=== PATIENT | male | born 1940 | race Caucasian/White ===

== ENCOUNTER → 2018-03-29 10:20 | Outpatient (BNVA) | payer MEDICARE, OTHER, SELFPAY | PROVIDERS: PCP Internal Medicine; Visit Provider Student in an Organized Health Care Education/Training Program | DX: I50.9 Heart failure, unspecified (principal); I34.0 Nonrheumatic mitral (valve) insufficiency; I25.10 Atherosclerotic heart disease of native coronary artery without angina pectoris; I48.2 Chronic atrial fibrillation; I11.0 Hypertensive heart disease with heart failure; I77.819 Aortic ectasia, unspecified site; F10.10 Alcohol abuse, uncomplicated; F17.210 Nicotine dependence, cigarettes, uncomplicated | CPT/HCPCS: 99215 ==

== ENCOUNTER 2018-07-19 01:24 | Outpatient (CLI) | payer MEDICARE, OTHER, SELFPAY ==
[2018-07-19 11:08] LABS: NT-proBNP 866 pg/mL
== END 2018-07-19 01:44 ==
PROVIDERS: PCP Internal Medicine; Visit Provider Internal Medicine
DX: I50.9 Heart failure, unspecified (principal)
CPT/HCPCS: 36415; 83880

== ENCOUNTER 2018-08-21 01:06 | Outpatient (CLI) | payer MEDICARE, OTHER, SELFPAY ==
--- NOTE | 2018-08-21 10:21 | MERGE_ITS ---
*[facility]* *[facility]* [address] [place] [address] Date of study: 08/21/2018 Transthoracic Echocardiography M-mode, complete 2D, complete spectral Doppler, and color Doppler *STUDY CONCLUSIONS* Summary: 1. Left ventricle: The cavity size was moderately dilated. Systolic function was mildly reduced. The estimated ejection fraction was 45-50%. Diffuse hypokinesis. 2. Aortic valve: There was moderate regurgitation. 3. Mitral valve: There was moderate regurgitation. 4. Left atrium: The atrium was severely dilated. 5. Right ventricle: The cavity size was mildly dilated. Systolic function was mildly reduced. 6. Right atrium: The atrium was moderately to severely dilated. 7. Atrial septum: No defect or patent foramen ovale was identified. 8. Tricuspid valve: There was moderate regurgitation. 9. Inferior vena cava: The vessel was patent and normal in size. The respirophasic diameter changes were in the normal range (greater than or equal to 50%), consistent with normal central venous pressure. *PATIENT PRESENTATION* Height: 188cm ((74in) ) S/D Pressure: 144 / 83 Weight: 113.9kg ((250.5lb) ) BSA: 2.47m^2 Test start time: 10:25 AM. Test stop time: 11:20 AM. PERFORMING Unknown ORDERING Maximino Virk REFERRING Maximino Virk PERFORMING [facility] CONSULTING Florencia Tolentino PAINT SUPERVISOR RT Marysol (R)(CT), KARON *PROCEDURE DATA* Procedure information: The patient was identified by two identifiers. This study was interpreted by [facility]. Pertinent images and digital data are archived for permanent storage and are available for subsequent review. Comparison was made to the study of 07/27/2017. Study status: Routine. Transthoracic echocardiography. M-mode, complete 2D, complete spectral Doppler, and color Doppler. A Transthoracic Echocardiogram was performed. Scanning was performed from the parasternal, apical, subcostal, and suprasternal notch acoustic windows. Images were obtained using an [id number] cardiac ultrasound machine. Image quality was adequate. Study completion: The patient tolerated the procedure well. History: PMH: Aortic insufficiency i35.1 AFIB, CAF, CHG, TAA. *CARDIAC ANATOMY* Left ventricle: The cavity size was moderately dilated. Systolic function was mildly reduced. The estimated ejection fraction was 45-50%. Diffuse hypokinesis. The study was not technically sufficient to allow evaluation of LV diastolic dysfunction due to atrial fibrillation. There was no evidence of elevated ventricular filling pressure by Doppler parameters. Aortic valve: Trileaflet. Doppler: There was no stenosis. There was moderate regurgitation. VTI ratio of LVOT to aortic valve: 0.8. Valve area (VTI): 3cm^2. Indexed valve area (VTI): 1.2cm^2/m^2. Peak velocity ratio of LVOT to aortic valve: 0.61. Valve area (Vmax): 2.3cm^2. Indexed valve area (Vmax): 0.9cm^2/m^2. Mean velocity ratio of LVOT to aortic valve: 0.67. Valve area (Vmean): 2.5cm^2. Indexed valve area (Vmean): 1cm^2/m^2. Mean gradient (S): 3.2mm Hg. Peak gradient (S): 5.3mm Hg. Aorta: Aortic root: The aortic root was mildly dilated. Ascending aorta: The ascending aorta was moderately dilated. Mitral valve: Doppler: There was no evidence for stenosis. There was moderate regurgitation. Left atrium: The atrium was severely dilated. Atrial septum: No defect or patent foramen ovale was identified. Right ventricle: The cavity size was mildly dilated. Systolic function was mildly reduced. Pulmonic valve: Doppler: There was no evidence for stenosis. There was no significant regurgitation. Peak gradient (S): 1.3mm Hg. Tricuspid valve: Doppler: There was moderate regurgitation. Pulmonary artery: Poorly visualized. Pulmonary systolic pressure was in the range of 25mm Hg to 35mm Hg. Right atrium: The atrium was moderately to severely dilated. Pericardium: There was no pericardial effusion. Systemic veins: Inferior vena cava: Well visualized. The vessel was patent and normal in size. The respirophasic diameter changes were in the normal range (greater than or equal to 50%), consistent with normal central venous pressure. Baseline ECG: Atrial fibrillation. Measurements Left ventricle Value 07/27/2017 Reference LV ID, ED, PLAX (H) 6.5 cm 5.8 3.5 - 6.0 LV ID, ES, PLAX (H) 4.9 cm 4.7 2.1 - 4.0 LV PW thickness, ED, PLAX 1.1 cm 1.2 LV end-diastolic volume, 142 ml 154 1-p A2C LV ejection fraction, 1-p 48 % 40 A2C LV end-diastolic volume, 158 ml 122 1-p A4C LV ejection fraction, 1-p 51 % 47 A4C LV e', lateral 0.084 m/sec LV E/e', lateral 8 LV e', medial 0.076 m/sec LV E/e', medial 9 LV e', average 0.08 m/sec LV E/e', average 8 Ventricular septum Value 07/27/2017 Reference IVS thickness, ED, PLAX 1.0 cm 1.2 LVOT Value 07/27/2017 Reference LVOT ID, A-P 2.2 cm 2.1 LVOT area 3.7 cm^2 3.5 LVOT peak velocity, S 0.7 m/sec 0.88 LVOT mean velocity, S 0.57 m/sec LVOT VTI, S 18.5 cm 14.9 LVOT peak gradient, S 2 mm Hg LVOT mean gradient, S 1.4 mm Hg 1.7 Stroke volume (SV), LVOT 68 ml DP Stroke index (SV/bsa), 28 ml/m^2 LVOT DP Aortic valve Value 07/27/2017 Reference Aortic valve peak 1.2 m/sec 1.2 velocity, S Aortic valve mean 0.85 m/sec 0.01 velocity, S Aortic valve VTI, S 23.0 cm Aortic mean gradient, S 3.2 mm Hg 3.2 Aortic peak gradient, S 5.3 mm Hg 5.9 VTI ratio, LVOT/AV 0.8 Aortic valve area, VTI 3 cm^2 2.7 Velocity ratio, peak, 0.61 0.73 LVOT/AV Aortic valve area, peak 2.3 cm^2 2.5 velocity Velocity ratio, mean, 0.67 LVOT/AV Aortic valve area, mean 2.5 cm^2 velocity Aortic valve area/bsa, 1 cm^2/m^2 mean velocity Aortic regurg deceleration 309 cm/s^2 148 Aortic regurg pressure 555 ms 797 half-time Aorta Value 07/27/2017 Reference Aortic root ID, ED 4.1 cm 4.5 Ascending aorta ID, A-P, S 4.2 cm 4.2 Left atrium Value 07/27/2017 Reference LA ID, A-P, ES 4.0 cm LA ID/bsa, A-P 1.6 cm/m^2 <=2.2 LA area, ES, A4C (H) 35.3 cm^2 32 8.8 - 23.4 LA area, ES, A2C 32 cm^2 LA volume/bsa, ES, 1-p A4C 60 ml/m^2 LA volume, ES, 2-p 120 ml LA volume/bsa, ES, 2-p 49 ml/m^2 LA/aortic root ratio 0.96 0.86 Mitral valve Value 07/27/2017 Reference Mitral E-wave peak 0.66 m/sec 0.54 velocity Pulmonary veins Value 07/27/2017 Reference Pulmonary vein peak 0.16 m/sec velocity, S Pulmonary vein peak 0.66 m/sec velocity, D Pulmonary vein velocity 0.24 ratio, peak, S/D Tricuspid valve Value 07/27/2017 Reference Tricuspid regurg peak 2.5 m/sec 2.2 velocity Tricuspid peak RV-RA 24.9 mm Hg 19.4 gradient Right atrium Value 07/27/2017 Reference RA area, ES, A4C (H) 25.5 cm^2 29 8.3 - 19.5 Pulmonic valve Value 07/27/2017 Reference Pulmonic peak gradient, S 1.3 mm Hg 1.7 Legend: (L) and (H) ran values outside specified reference range. I have personally reviewed the images and have reviewed and edited the reported findings. Electronically signed by Lul Colbert MD 08/21/2018 15:48
== END 2018-08-21 01:26 ==
PROVIDERS: PCP Internal Medicine; Visit Provider Student in an Organized Health Care Education/Training Program
DX: I35.1 Nonrheumatic aortic (valve) insufficiency (principal); I48.91 Unspecified atrial fibrillation; I50.1 Left ventricular failure, unspecified; I51.7 Cardiomegaly; I25.10 Atherosclerotic heart disease of native coronary artery without angina pectoris
CPT/HCPCS: 93306

== ENCOUNTER → 2018-09-06 08:55 | Outpatient (BNVA) | payer MEDICARE, OTHER, SELFPAY | PROVIDERS: PCP Internal Medicine; Visit Provider Student in an Organized Health Care Education/Training Program | DX: I50.9 Heart failure, unspecified (principal); I34.0 Nonrheumatic mitral (valve) insufficiency; I25.10 Atherosclerotic heart disease of native coronary artery without angina pectoris; I48.2 Chronic atrial fibrillation; I11.0 Hypertensive heart disease with heart failure; I77.810 Thoracic aortic ectasia; F17.210 Nicotine dependence, cigarettes, uncomplicated | CPT/HCPCS: 99215 ==

== ENCOUNTER 2018-09-20 02:01 | Outpatient (CLI) | payer MEDICARE, OTHER, SELFPAY ==
[2018-09-20 11:04] LABS: Abs Immature Grans 0.01 k/cumm (0.0-0.09); Absolute Basophil Count 0.03 k/cumm (0.0-0.2); Absolute Eosinophil Count 0.26 k/cumm (0.0-0.7); Absolute Lymphocyte Count 2.11 k/cumm (1.2-3.4); Absolute Monocyte Count 0.74 k/cumm (0.11-0.7); Absolute Neutrophil Count 2.58 k/cumm (1.2-6.7); Basophils % 0.5; Eosinophils % 4.5; HCT 45.4 % (40.0-50.0); HGB 15.6 g/dL (13.5-17.5); Immature Grans % 0.2; Lymphocytes % 36.8; Mean Corp. HGB Concentration 34.4 g/dL (32.0-36.0); Mean Corpuscular Hemoglobin 30.7 pg (27.0-33.0); Mean Corpuscular Volume 89.4 fL (80-95); Mean Platelet Volume 10.2 fL (8.0-11.0); Monocytes % 12.9; Neutrophils % 45.1; Platelet Count 151 x1000/uL (130-400); RBC 5.08 m/cumm (4.50-6.00); RBC Distribution Width 13.7 % (11.8-14.1); White Blood Cell Count 5.73 k/cumm (4.4-10.8)
[2018-09-20 11:37] LABS: ALT 27 U/L (12-78); AST 18 U/L (15-37); Albumin 3.6 g/dL (3.4-5.0); Alkaline Phosphatase 60 U/L (46-116); Bilirubin, Direct 0.19 mg/dL (0.00-0.20); Bilirubin, Total 0.7 mg/dL (0.2-1.0); Magnesium 1.6 mg/dL (1.8-2.4); Total Protein 6.5 g/dL (6.4-8.2)
[2018-09-20 14:01] LABS: Cholesterol 143 mg/dL (50-200); HDL Cholesterol 46 mg/dL (40-60); LDL CHOLESTEROL 68 mg/dL (<100); Triglyceride 176 mg/dL (30-150)
== END 2018-09-20 02:21 ==
PROVIDERS: PCP Internal Medicine; Visit Provider Student in an Organized Health Care Education/Training Program
DX: I25.10 Atherosclerotic heart disease of native coronary artery without angina pectoris (principal); I50.9 Heart failure, unspecified; I48.91 Unspecified atrial fibrillation
CPT/HCPCS: 36415; 80061; 80076; 83721; 83735; 85025

== ENCOUNTER 2019-04-10 01:02 | Outpatient (CLI) | payer MEDICARE, OTHER, SELFPAY ==
[2019-04-10 13:13] LABS: ALT 33 U/L (16-63); AST 18 U/L (15-37); Albumin 3.8 g/dL (3.4-5.0); Alkaline Phosphatase 62 U/L (46-116); Anion Gap 9.8 mmol/L (3-11); BUN 17 mg/dL (7-18); Bilirubin, Total 0.9 mg/dL (0.2-1.0); CO2 26.2 mmol/L (21.0-32.0); CREATININE 0.97 mg/dL (0.70-1.30); Calcium 8.6 mg/dL (8.5-10.1); Chloride 105 mmol/L (98-107); Glucose 92 mg/dL (70-100); Magnesium 1.6 mg/dL (1.8-2.4); NT-proBNP 1057 pg/mL; Potassium 4.4 mmol/L (3.5-5.1); Sodium 141 mmol/L (136-145); Total Protein 6.8 g/dL (6.4-8.2)
== END 2019-04-10 01:22 ==
PROVIDERS: PCP Internal Medicine; Visit Provider Internal Medicine
DX: I25.10 Atherosclerotic heart disease of native coronary artery without angina pectoris (principal); I50.9 Heart failure, unspecified; E83.42 Hypomagnesemia
CPT/HCPCS: 36415; 80053; 83735; 83880

== ENCOUNTER 2019-07-02 16:52 | Outpatient (CLI) | payer MEDICARE, OTHER, SELFPAY ==
[2019-07-02 16:39] LABS: ALT 23 U/L (16-63); AST 18 U/L (15-37); Albumin 3.4 g/dL (3.4-5.0); Alkaline Phosphatase 68 U/L (46-116); Anion Gap 9.1 mmol/L (3-11); BUN 16 mg/dL (7-18); Bilirubin, Total 0.4 mg/dL (0.2-1.0); CO2 26.9 mmol/L (21.0-32.0); CREATININE 1.14 mg/dL (0.70-1.30); Calcium 7.9 mg/dL (8.5-10.1); Chloride 106 mmol/L (98-107); Glucose 112 mg/dL (74-106); Potassium 4.1 mmol/L (3.5-5.1); Sodium 142 mmol/L (136-145); Total Protein 6.6 g/dL (6.4-8.2)
--- NOTE | 2019-07-02 17:06 | DI.CT_ITS ---
EXAM: CT THORAX ABD/PEL CTA CLINICAL HISTORY: CHEST PAIN, BACK PAIN, R07.9, M54.9,.DORSALGIA TECHNIQUE: Imaging Protocol: Axial computed tomography images of the with coronal and sagittal refo rmatted images were created and reviewed. Axial CT angiography was performed with multi-slice acquisition and multi-planar and/or 3D reconstruc tions. CONTRAST MATERIAL: Intravenous: Omnipaque 350 Contrast volume:125 mL contrast route:IV - Oral: No COMPARISON: No exams were available for comparison FINDINGS: CHEST: Tracheobronchial tree: Patent where visualized. Mediastinum and Chel[place]: No dominant adenopathy or fluid collection. Pulmonary parenchyma: Dependent atelectasis. Pleura: No effusion or pneumothorax. Aorta: Atherosclerosis. No evidence of aortic dissection. 4.2 cm ascending thoracic aortic aneurysm . Heart: Cardiomegaly. Moderately severe coronary artery calcification. No pericardial effusion. Pulmonary arteries: No central pulmonary emboli. Bones: No acute abnormality. Degenerative changes. Old healed rib fracture. Lymph nodes: Within normal limits. ABDOMEN: Liver: Normal density. No measurable mass. Gallbladder and biliary tract: Status post cholecystectomy. No biliary ductal dilatation. Pancreas: Normal density, no abnormal calcifications or inflammatory process. Spleen: Normal. Kidneys: Normal size, contour and axis. No radiodense stones or obstructive uropathy. No masses seen. Adrenal glands: No masses seen. Lymph nodes: Within normal limits. Aorta: There is an infrarenal abdominal aortic aneurysm measuring 3 cm in diameter. There is atheros clerosis of the abdominal aorta. There are 2 small intimal flaps identified in the infrarenal abdomi nal aortic aneurysm. They are not associated with either the renal arteries or the iliac arteries. (Series 6, images 880 and 923). There is no evidence of aortic rupture. There is no evidence of a p enetrating atherosclerotic ulcer. Celiac trunk and mesenteric arteries: No occlusion or significant stenosis. Iliac arteries: Atherosclerosis. No evidence of occlusion or significant stenosis. Renal arteries: No evidence of occlusion or significant stenosis. PELVIS: Bladder: Grossly unremarkable. There is limited visualization due to artifact from the patient's sabino ateral total hip replacements. Bowel: Colonic diverticulosis but no evidence of acute diverticulitis. Normal appendix. Large amoun t of stool in the colon suggesting constipation. Apparent thickening of the wall of the stomach licea artis this likely is due to underdistention. No evidence of bowel obstruction. Peritoneal cavity: No ascites, collection or mesenteric inflammatory response. Reproductive organs: Not well visualized due to the artifact from the patient's bilateral hip prosthe ses. Bones: Degenerative changes. Bilateral hip arthroplasty. IMPRESSION: 1. No evidence of thoracic aortic dissection. 2. 4.2 centimeter ascending thoracic aortic aneurysm. 3. 2 small intimal flaps seen in the infrarenal abdominal aorta. No involvement of the renal arterie s or iliac arteries is noted. These may represent focal tiny dissections versus intimal injury. No evidence of aortic rupture is noted. DATA REPOSITORY: All CT scans at this facility are submitted to the National Radiology Data Registry (NRDR) Dose Index Registry (DIR) with the [employer] (A[employer]). RADIATION OPTIMIZATION: All CT scans at this facility use at least one of these dose optimization te chniques: automated exposure control; mA and/or kV adjustment per patient size (includes targeted exa ms where dose is matched to clinical indication); or iterative reconstruction.
--- NOTE | 2019-07-02 17:48 | DI.VRAD_ITS ---
PROCEDURE INFORMATION: Exam: CT Angiography Chest With Contrast Exam date and time: 07/02/2019 3:30 PM Age: 79 years old Clinical indication: Chest pain and other: Back pain; Type not specified; Other: Chest/back; Prior surgery; Patient HX: Chest pain, back pain; Additional info: Evaluate for aortic dissection TECHNIQUE: Imaging protocol: Computed tomographic angiography of the chest with intravenous contrast. 3D rendering: MIP and/or 3D reconstructed images were created by the technologist. COMPARISON: CR CHEST 2 VIEWS PA,LAT 01/28/2015 11:21 AM FINDINGS: Pulmonary arteries: Normal. No pulmonary emboli. Great vessels off aortic arch: Bovine configuration to the aortic arch vessels. Aorta: Aneurysmal dilation of the mid ascending thoracic aorta measuring 4.2 cm in greatest diameter. Mild diffuse calcific atherosclerotic disease of the aorta is present. No acute aortic pathology. Specifically, no evidence of aortic dissection. Lungs: There is subpleural atelectasis of the dependent portions of the lungs. Mild scarring and atelectasis at the lung bases. No acute interstitial or airspace disease. Pleural space: Unremarkable. No pneumothorax. No pleural effusion. Heart: The heart is moderately enlarged. There is moderate atherosclerotic calcification of the coronary arteries. No pericardial thickening or effusion. Lymph nodes: Unremarkable. No enlarged lymph nodes. Bones/joints: Moderate to severe degenerative changes at the bilateral glenohumeral joints. Old/healed fracture to the lateral aspect of the left 7th rib. No acute skeletal pathology. Severe multilevel degenerative changes of the spine, as manifested by multilevel anterior osteophytes and multilevel decrease in intervertebral disc space. Soft tissues: Unremarkable. IMPRESSION: 1. Negative for acute thoracic pathology. 2. Incidental findings as detailed above. PROCEDURE INFORMATION: Exam: CT Angiography Abdomen and Pelvis With Contrast Exam date and time: 07/02/2019 3:30 PM Age: 79 years old Clinical indication: Chest pain and other: Back pain; Type not specified; Other: Chest/back; Prior surgery; Patient HX: Chest pain, back pain; Additional info: Evaluate for aortic dissection TECHNIQUE: Imaging protocol: Computed tomographic angiography of the abdomen and pelvis with intravenous contrast material. 3D rendering: MIP and/or 3D reconstructed images were created by the technologist. COMPARISON: CR CHEST 2 VIEWS PA,LAT 01/28/2015 11:21 AM FINDINGS: Limitations: Evaluation of the pelvis is limited due to significant streak artifact. Aorta: There is aneurysmal dilation of the infrarenal abdominal aorta measuring up to 3 cm in greatest diameter. There is severe atherosclerotic disease of the abdominal aorta present. At least 2 small intimal flaps are appreciated in the infrarenal abdominal aorta on images 880 and 923 series 6. These are most likely related to tiny focal dissections versus intimal injury due to underlying atherosclerotic plaque ulceration. They are of questionable clinical significance at this time and are not associated to the takeoffs of the renal arteries or ALEXANDRO. The flaps do not extend into the iliac arteries either. There are scattered ulcerated atherosclerotic plaques seen throughout the infrarenal abdominal aorta. For example, a focal plaque ulceration is appreciated on image 805 series 6. There is no evidence of a penetrating atherosclerotic ulcer, nor is there evidence of aortic rupture. Celiac trunk and mesenteric arteries: The celiac artery is patent. The SMA is patent. The ALEXANDRO is patent. Renal arteries: The bilateral single renal arteries are patent. Right iliac arteries: No occlusion or significant stenosis. Left iliac arteries: Diffuse calcific atherosclerotic disease without significant occlusion or stenosis. Liver: There is moderate enlargement of the liver. No acute liver pathology. Gallbladder and bile ducts: Patient status post cholecystectomy. No biliary ductal dilation. Pancreas: Unremarkable. No mass. No ductal dilation. Spleen: Unremarkable. No splenomegaly. Adrenals: Unremarkable. No mass. Kidneys and ureters: Unremarkable. No solid mass. No hydronephrosis. Stomach and bowel: No bowel wall thickening, obstruction, or other acute pathology. Diffuse colonic diverticulosis is present. There is moderately excessive colonic stool content. Appendix: No evidence of appendicitis. Intraperitoneal space: Unremarkable. No free air. No significant fluid collection. Lymph nodes: Unremarkable. No enlarged lymph nodes. Bladder: Visualized urinary bladder appears unremarkable. Reproductive: Prostate gland is not confidently appreciated in this examination. Bones/joints: Complete bilateral hip arthroplasty without acute complications. No evidence of hardware complications. No acute skeletal pathology. Severe multilevel degenerative changes of the spine, as manifested by multilevel anterior osteophytes and multilevel decrease in intervertebral disc space. Soft tissues: Prior anterior abdominal wall repair with mesh placement. No acute complications. IMPRESSION: 1. At least 2 small intimal flaps are appreciated in the infrarenal abdominal aorta which are most likely related to tiny focal dissections versus intimal injury due to underlying atherosclerotic plaque ulceration. They are of questionable clinical significance at this time and are not associated to the takeoffs of the renal arteries or ALEXNADRO. The flaps do not extend into the iliac arteries either. 2. Scattered multifocal areas of atherosclerotic plaque ulceration throughout the infrarenal abdominal aorta without evidence of penetrating atherosclerotic ulcer or aortic rupture. 3. No other acute abdominopelvic pathology is otherwise appreciated. 4. Incidental findings as above. Dictated and Authenticated by: Damián Varma MD. Ordering:GODWIN Don MD
[2019-07-05 06:52] LABS: Vitamin D 25 Total 32.7 ng/ml (30-100)
== END 2019-07-02 17:12 ==
PROVIDERS: PCP Internal Medicine; Visit Provider Internal Medicine
DX: R07.9 Chest pain, unspecified (principal); M54.9 Dorsalgia, unspecified; J98.11 Atelectasis; I71.2 Thoracic aortic aneurysm, without rupture; I51.7 Cardiomegaly; K59.00 Constipation, unspecified; Z90.49 Acquired absence of other specified parts of digestive tract; Z96.643 Presence of artificial hip joint, bilateral
CPT/HCPCS: 36415; 71275; 74177; 80053; 82306

== ENCOUNTER 2019-07-12 07:35 | Outpatient (CLI) | payer MEDICARE, OTHER, SELFPAY ==
--- NOTE | 2019-07-12 13:30 | DI.RAD_ITS ---
EXAM: XR THORACIC SPINE COMPLETE INDICATION: BACK PAIN M54.9 DORSALGIA X 2 WEEKS SUDDEN ONSET, WOKE UP WITH C7-T1 PAIN. COMPARISON: No exams were available for comparison TECHNIQUE: 2D digital imaging was performed. FINDINGS: There is normal alignment of the thoracic spine. Disc heights are well maintained. Flowing osteophy benjamín are seen throughout the thoracic spine. 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 No acute fracture s or subluxations are seen in the spine. The paraspinal lines are unremarkable. IMPRESSION: No acute abnormality.
== END 2019-07-12 07:55 ==
PROVIDERS: PCP Internal Medicine; Visit Provider Internal Medicine
DX: M54.6 Pain in thoracic spine (principal); M54.2 Cervicalgia; M48.13 Ankylosing hyperostosis [Forestier], cervicothoracic region
CPT/HCPCS: 72072

== ENCOUNTER 2019-07-26 09:32 | Outpatient (CLI) | payer MEDICARE, OTHER, SELFPAY | END 2019-07-26 09:52 | PROVIDERS: PCP Internal Medicine; Visit Provider Internal Medicine Cardiovascular Disease | DX: I25.10 Atherosclerotic heart disease of native coronary artery without angina pectoris (principal); I48.20 Chronic atrial fibrillation, unspecified; I10 Essential (primary) hypertension | CPT/HCPCS: 99214; 93005; 93010 ==

== ENCOUNTER 2019-08-14 01:32 | Outpatient (CLI) | payer MEDICARE, OTHER, SELFPAY ==
--- NOTE | 2019-08-14 07:00 | DI.NM_ITS ---
APPROVED REPORT Exam: Pharmacologic Patient Location: Out-Patient Room/Bed: Stress Nurse: Corinna Rasmussen RN BMI: 32.09 Baseline Rhythm: Atrial Fibrillation Indications: Chest pain. Atherosclerosis of [place] coronary artery. Medical History Medical History: Atrial Fibrillation, CAD s/p stent, Heart failure, HTN, Hyperlipidemia, RBBB, Smokin g Cardiac Medications: Aspirin. Apixaban. Losartan. Metoprolol Succinate., Allergies: Ibuprofen Cardiac Risk Factors: HTN, Hyperlipidemia, FHX of CAD, Smoking Previous Cardiac Procedures: PCI Exercise History: Indeterminate Lung Sounds: Clear to auscultation Heart Sounds: Distant heart sounds. Stress Test Details Test: Pharmacologic stress testing performed using 0.4 mg of regadenoson per 5 mL given IV over 10 s econds. Nuclear Acquisition: Rest Tc-99m/Stress Tc-99m 1 day Rest Isotope: Tc-99m Sestamibi. Dose: 12.5 Date: 08/14/2019 Injection Time: 1045 Stress Isotope: Tc-99m Sestamibi. Dose: 34.0 Date: 08/14/2019 Injection Time: 1200 HR Resting HR Supine: 74 bpm Max Heart Rate (APMHR): 141 bpm Target HR (85% APMHR): 119 bpm Max HR Achieved: 89 bpm % of APMHR: 63 Recovery HR: 70 bpm BP Resting BP Supine: 130/80 mmHg Max BP: 140/90 mmHg Recovery BP: 140/80 mmHg ECG Resting ECG: Atrial Fibrillation, RBBB Stress ECG: Atrial Fibrillation, RBBB Arrhythmia: VPC's Recovery ECG: Atrial Fibrillation, RBBB Recovery Arrhythmia: VPC Clinical Exercise duration: 6 min26 sec Stress ECG Conclusion 1. This is a pharmacological stress test. 2. The ECG portion of this exam is nondiagnostic. Protocol Used: Regadenoson Stress Test Summary STAGE HR BP Symptoms NOTES Supine 74 130/80 1 min post Lexiscan injection 89 120/85 3 min post Lexiscan injection 76 140/90 6 min post Lexiscan injection 70 140/80 MPI Conclusion Ejection fraction with stress was 31%. There were no wall motion abnormalities. There is a small fixed apical perfusion defect with no accompanying airam-infarct ischemia. Represents an abnormal SPECT stress test. Radiologist Interpretation Radiologist Interpretation by: Leroy Yañez MD Interpretation Date/Time: 08/14/2019 15:49:10
[2019-08-14] MEDS: Regadenoson 0.4 MG/5 ML SYR IVP (12:03)
== END 2019-08-14 01:52 ==
PROVIDERS: PCP Internal Medicine; Visit Provider Internal Medicine Cardiovascular Disease
DX: I25.10 Atherosclerotic heart disease of native coronary artery without angina pectoris (principal); R07.89 Other chest pain; I48.91 Unspecified atrial fibrillation; I50.9 Heart failure, unspecified; Z95.5 Presence of coronary angioplasty implant and graft; I10 Essential (primary) hypertension; E78.5 Hyperlipidemia, unspecified; Z82.49 Family history of ischemic heart disease and other diseases of the circulatory system
CPT/HCPCS: 78452; 93016; 93018; 93017; J2785

== ENCOUNTER 2019-10-16 09:47 | Emergency (ER) | payer MEDICARE, OTHER, SELFPAY ==
[2019-10-16 09:50] VITALS: BP 172/94; PULSE 95; RESP 20; TEMP 36.7; O2SAT 96
--- NOTE | 2019-10-16 09:55 | ED.GENADUL_ITS ---
Discharge Plan Disposition Patient Disposition: HOME Condition: Stable Discharge Details Chief Complaint: Chest/Rib Clinical Impression: Left rib fracture, Fall Primary Care Provider: Dana Banks ED Provider: Anjana Moore Home Meds and New Rx's Prescriptions: Continued magnesium oxide 400 mg (241.3 mg magnesium) tablet 400 mg PO BID RF: 0 Eliquis 5 mg tablet 5 mg PO BID Qty: 180 RF: 4 atorvastatin [Lipitor] 40 mg tablet 40 mg PO QPM Qty: 90 RF: 4 furosemide 40 mg tablet 40 mg PO DAILY Qty: 60 RF: 6 losartan 50 mg tablet 50 mg PO DAILY Qty: 90 RF: 3 metoprolol succinate 50 mg tablet extended release 24 hr 50 mg PO BID Qty: 180 RF: 3 sildenafil [Viagra] 50 mg tablet 50 mg PO PRN Qty: 6 RF: 5 vitamin S38-siuhr acid 1 EACH tablet 1 ea PO DAILY RF: 0 Co Q-10 (with Vit E) 1 EACH capsule 1 ea PO DAILY RF: 0 nitroglycerin [Nitrostat] 0.4 MG tablet, sublingual 0.4 mg Sublingual Q5 MIN PRN X3 PRNQty: 60 RF: 0 aspirin 81 MG tablet,chewable 81 mg PO DAILY Qty: 30 RF: 0 cholecalciferol (vitamin D3) 1,000 UNIT capsule 1,000 unit PO DAILY RF: 0 spironolactone 25 mg tablet 12.5 mg PO DAILY Qty: 45 RF: 3 omeprazole 40 mg capsule,delayed release(DR/EC) 40 mg PO DAILY Qty: 90 RF: 4 Discharge Instructions Instructions: How to Use an Incentive Spirometer (ED), Rib Fracture (ED), Fall Prevention for Older Adults (ED) Additional Instructions: Please take acetaminophen (tylenol) - 650mg every 6 hours by mouth as needed for pain. Please use lidocaine patch for pain --these are [id number]. Dose according to label. Use incentive spirometer every 2-3 hours while awake for the next week. Please contact your primary care physician to arrange follow-up. Return to the ER for any worsening or new concerning symptoms. Referrals: Dana Banks, [facility] [Primary Care Provider] - Discharge Data Discharge Date/Time-TO BE ENTERED AT DEPARTURE: 10/16/19 11:00 Medical Decision Making <Anjana Moore - Last Filed: 10/16/19 11:03> 79-year-old male presents to the ED with a chief complaint of left-sided rib pain. Patient states he tripped and fell on Tuesday onto his left side. He denies any loss of consciousness or hitting his head. He rates his pain moderate to severe. Denies shortness of breath. He has a history of coronary artery disease, hypertension, vertigo, high cholesterol. He states he took a T ylenol prior to arrival. 0958: X-ray rib series and chest ordered. Offered pain medication which patient declined at this time. Discussed potential complications with patient and red flags and strict return instructions, verbalized understanding. Patient was given incentive spirometer by staff toxicologist and lidocaine patch placed which seems to improve pain somewhat. Patient verbalized understanding. Patient at this time is stable to be discharged home. <Santiago Mohan MD - Last Filed: 10/19/19 08:21> Patient seen, examined, and discussed with AIDA Moore. I agree with treatment plan as discussed/documented. Patient provided lidocaine patch. X-ray results were reviewed and radiology interpretation notes 2, possibly 3 left rib fractures, no pneumothorax. Results were reviewed with the patient. Patient was instructed to continue Tylenol and lidocaine patch. He was provided fall prevention instructions from [facility] program. HPI <Anjana Moore - Last Filed: 10/16/19 11:03> General Mode of arrival: ambulatory . Date/Time Provider Initiated Documentation: 10/16/19 09:48 . Limitations to Documentation: no limitations . Information obtained by: patient . HPI Narrative: 79-year-old male presents to the ED with a chief complaint of left-sided rib pain. Patient states he tripped and fell on Tuesday onto his left side. He denies any loss of consciousness or hitting his head. He rates his pain moderate to severe. Denies shortness of breath. He has a history of coronary artery disease, hypertension, vertigo, high cholesterol. He states he took a Tylenol prior to arrival. Related Data Home Medications Medication Instructions Recorded Confirmed vitamin R57-gysks acid 1 ea PO DAILY 08/23/12 10/19/19 Co Q-10 (with Vit E) 1 ea PO DAILY 11/06/12 10/19/19 nitroglycerin [Nitrostat] 0.4 mg SUBLINGUAL Q5 MIN PRN X3 08/18/16 10/19/19 PRN #60 tab aspirin 81 mg PO DAILY #30 tab-cap 08/03/17 10/19/19 cholecalciferol (vitamin D3) 1,000 unit PO DAILY 10/05/17 10/19/19 spironolactone 25 mg tablet 12.5 mg PO DAILY #45 tab-cap 12/26/18 10/19/19 omeprazole 40 mg capsule,delayed 40 mg PO DAILY #90 tab-cap 02/26/19 10/19/19 release apixaban 5 mg tablet 5 mg PO BID #180 tab-cap 04/04/19 10/19/19 atorvastatin 40 mg tablet 40 mg PO QPM #90 cap 04/04/19 10/19/19 furosemide 40 mg tablet 40 mg PO DAILY #60 tab 04/04/19 10/19/19 losartan 50 mg tablet 50 mg PO DAILY #90 tab-cap 04/04/19 10/19/19 magnesium oxide 400 mg (241.3 mg 400 mg PO BID tab 04/04/19 10/19/19 magnesium) tablet metoprolol succinate 50 mg 50 mg PO BID #180 tab 04/04/19 10/19/19 tablet,extended release 24 hr sildenafil 50 mg tablet 50 mg PO PRN #6 tab-cap 04/04/19 10/19/19 Previous Rx's Medication Instructions Recorded aspirin 81 mg PO DAILY #30 tab-cap 08/03/17 spironolactone 25 mg tablet 12.5 mg PO DAILY #45 tab-cap 12/26/18 omeprazole 40 mg capsule,delayed 40 mg PO DAILY #90 tab-cap 02/26/19 release apixaban 5 mg tablet 5 mg PO BID #180 tab-cap 04/04/19 atorvastatin 40 mg tablet 40 mg PO QPM #90 cap 04/04/19 furosemide 40 mg tablet 40 mg PO DAILY #60 tab 04/04/19 losartan 50 mg tablet 50 mg PO DAILY #90 tab-cap 04/04/19 metoprolol succinate 50 mg 50 mg PO BID #180 tab 04/04/19 tablet,extended release 24 hr sildenafil 50 mg tablet 50 mg PO PRN #6 tab-cap 04/04/19 Allergies Allergy/AdvReac Type Severity Reaction Status Date / Time ibuprofen [From Advil] Allergy Severe RESPIRATORY Unverified 10/19/19 06:28 DISTRESS General Stated Complaint: Chest/Rib CASTRO: 3 Review of Systems <Anjana Moore - Last Filed: 10/16/19 11:03> Narrative: Constitutional: Negative for weight loss, alert and oriented, well groomed, normal body habitus, appears comfortable. HEENT: Denies trauma, headaches, blurry vision, nasal discharge, sore throat, trouble swallowing. Chest: Denies chest pain, palpitations, irregular rhythm, hypertension. Left- sided anterior and posterior chest wall pain. Respiratory: Denies Shortness of breath, cough, hemoptysis. GI: Denies abdominal pain, nausea, vomiting, diarrhea, constipation.. Neuro: Denies dizziness, blurry vision, weakness, syncope, headache or facial numbness. Hematologic: Denies easy bruising, intolerance to heat or cold, hair loss. PFSH <Anjana Moore - Last Filed: 10/16/19 11:03> Medical History Benign paroxysmal positional vertigo (Inactive 01/10/18) CAD (coronary artery disease) Carpal tunnel syndrome (Inactive) Cataract (Inactive) Essential hypertension Heart disease History of alcoholism (Inactive) Hypercholesterolemia Status post percutaneous transluminal coronary angioplasty (~2008) stent placement Surgical History Colonoscopy - IV Sedation (09/06/12) DR. MOORE; POOR PREP, TUBULAR ADENOMA Colonoscopy - MAC (01/20/18) EGD - MAC (03/21/15) DR.TERRY HERNANDEZ History of esophagogastroduodenoscopy (Inactive 05/05/15) History of umbilical hernia repair (Inactive) Repair of umbilical hernia (~2004) Status post coronary artery stent placement (Inactive) 5 Status post hip replacement (Inactive) x2 Stent placement (~2005) X 3 LAD; LCX Total replacement of hip (~2009) Family History Mother , AGE 85 Breast cancer Father , AGE 61 Stroke Brother , AGE 66 Essential hypertension Heart disease Hyperlipidemia Social History Smoking/Tobacco Use Status: Current every day Tobacco Type: cigars Per week: 25 Tobacco: How many years used: 50 Alcohol Intake: current Alcohol Intake frequency: 0-2 drinks per day Alcohol type: wine Drug use: Never Substance use type: does not use Caregiver/Support person: No Household members: spouse Communication Needs: None Pets and animals: No Current gender identity: male What is your relationship status?: How often do you talk on the phone with friends or family?: decline to answer How often do you get together with friends or relatives?: decline to answer How often do you attend caodaism or congregational services?: decline to answer Do you belong to any clubs or organized social groups?: decline to answer Panel score (0-1 are the most socially isolated patients): 1 What type of physical activity do you participate in: none Duration: 15-30 minutes/day Frequency: 5-6 times per week Debra/Presybeterian: Adventist Special debra needs: No Do you feel safe at home: Yes Do you feel safe in your relationship?: Yes Exam <Anjana Moore - Last Filed: 10/16/19 11:03> Narrative Exam Narrative: Constitutional: Alert and oriented x3. Appears stated age. Normal body habitus. Head: Normocephalic, no trauma. Eyes: Pupils PERRLA, Red reflex noted, EOM's intact. Eyelids symmetrical without lesions, discharge, or swelling. ENT: Bilateral TM's WNL, External ear normal to inspection, no mastoid TTP, swelling, or erythema, Nasal turbinates WNL, no nasal discharge. Normal dentition, Posterior pharynx WNL, no exudate. Chest: RRR, Normal S1, S2, distal pulses intact. Tender to palpation over posterior seventh or eighth rib. No deformity, no crepitus or step-off. Resp: Lungs clear to auscultation bilaterally, no wheezes, rales, or rhonchi. Musculoskeletal: Normal gait, 5/5 strength to all four extremities. Skin: No suspicious rashes or lesions. Capillary refill less than 2 sec. Neurologic: Cranial nerves II-XII intact. Alert and oriented x 3. DTR's intact. Hematologic/Lymphatic: No ecchymosis, no lymphadenopathy. Course <Anjana Moore - Last Filed: 10/16/19 11:03> Vital Signs Vital signs: Vital Signs Temperature 36.7 C 10/16/19 09:50 Pulse 95 H 10/16/19 09:50 Respiratory Rate 20 10/16/19 09:50 Blood Pressure 172/94 H 10/16/19 09:50 Pulse Oximetry 96 10/16/19 09:50 Temperature 36.7 C 10/16/19 09:50 Temperature Source Tympanic 10/16/19 09:50 Pulse 95 H 10/16/19 09:50 Respiratory Rate 20 10/16/19 09:50 Blood Pressure 172/94 H 10/16/19 09:50 Blood Pressure Position Sitting 10/16/19 09:50 Pulse Oximetry 96 10/16/19 09:50 Oxygen Delivery Method Room Air 10/16/19 09:50 Oxygen Flow Rate 0 10/16/19 09:50 Pain Level 2 10/16/19 09:50
--- NOTE | 2019-10-16 10:15 | DI.RAD_ITS ---
EXAM: XR RIBS LT W PA LAT CHEST CLINICAL HISTORY: rib pain/ fall TECHNIQUE: 2D digital imaging was performed. COMPARISON: CR CHEST 2 VIEWS PA,LAT from 01/28/2015 FINDINGS: MEDIASTINUM: Normal. HEART: Normal. PULMONARY VASCULATURE: Normal. LUNGS: Clear. PLEURAL SPACE: No pleural effusion or pneumothorax. BONE:There is a fracture of lateral aspect of the left 4th rib. There are mildly displaced fractures of the left 5th rib posteriorly and laterally. There is a minimally displaced fracture of the poste rior aspect of the left 6th rib. OTHER FINDINGS:Normal. IMPRESSION: Mildly displaced fractures involving the left 4th, 5th and 6th ribs. DATA REPOSITORY: RADIATION DOSE DELIVERED:
[2019-10-16] MEDS: Lidocaine 5% Patch 1 PATCH TP (10:17)
[2019-10-16 11:00] VITALS: BP 154/83; PULSE 93; RESP 17; TEMP 36.2; O2SAT 97
== END 2019-10-16 11:00 | disposition home or self-care (01) ==
PROVIDERS: Emergency Provider Registered Nurse Emergency; PCP Nurse Practitioner
DX: S22.42XA Multiple fractures of ribs, left side, initial encounter for closed fracture (principal); W18.30XA Fall on same level, unspecified, initial encounter; I10 Essential (primary) hypertension
CPT/HCPCS: 99283; 71046; 71100

== ENCOUNTER 2019-10-19 05:53 | Emergency (ER) | payer MEDICARE, OTHER, SELFPAY ==
[2019-10-19 05:58] VITALS: BP 158/86; PULSE 87; RESP 18; TEMP 36.2; O2SAT 97
--- NOTE | 2019-10-19 06:13 | W.ED.GENAD ---
Discharge Plan Disposition Patient Disposition: HOME Condition: Good Discharge Details Chief Complaint: EarProblem Clinical Impression: Postoperative bleeding from incision Primary Care Provider: Dana Banks ED Provider: Leroy Gonsales [place] Meds and New Rx's Prescriptions: Continued magnesium oxide 400 mg (241.3 mg magnesium) tablet 400 mg PO BID RF: 0 Eliquis 5 mg tablet 5 mg PO BID Qty: 180 RF: 4 atorvastatin [Lipitor] 40 mg tablet 40 mg PO QPM Qty: 90 RF: 4 furosemide 40 mg tablet 40 mg PO DAILY Qty: 60 RF: 6 losartan 50 mg tablet 50 mg PO DAILY Qty: 90 RF: 3 metoprolol succinate 50 mg tablet extended release 24 hr 50 mg PO BID Qty: 180 RF: 3 sildenafil [Viagra] 50 mg tablet 50 mg PO PRN Qty: 6 RF: 5 vitamin C41-eyite acid 1 EACH tablet 1 ea PO DAILY RF: 0 Co Q-10 (with Vit E) 1 EACH capsule 1 ea PO DAILY RF: 0 nitroglycerin [Nitrostat] 0.4 MG tablet, sublingual 0.4 mg Sublingual Q5 MIN PRN X3 PRNQty: 60 RF: 0 aspirin 81 MG tablet,chewable 81 mg PO DAILY Qty: 30 RF: 0 cholecalciferol (vitamin D3) 1,000 UNIT capsule 1,000 unit PO DAILY RF: 0 spironolactone 25 mg tablet 12.5 mg PO DAILY Qty: 45 RF: 3 omeprazole 40 mg capsule,delayed release(DR/EC) 40 mg PO DAILY Qty: 90 RF: 4 Discharge Instructions Additional Instructions: Leave this dressing on for 24 hours. May begin daily dressing changes tomorrow morning. Follow-up with Dr. Tam next week as planned. Contact him if any further issues. Return to ED for recurrent heavy bleeding. Referrals: Ernie Tam MD [MD CONSULTING PHYSICIAN] - Medical Decision Making Dressing removed. Clot gently removed. Suture lines are intact. Slight oozing but no heavy active bleeding. No dehiscence. No sign of infection. Telfa gauze applied along with bulky dressing and Coban pressure dressing which should provide enough pressure to prevent further bruising. Patient may remove dressing in 24 hours and proceed with daily dressing changes. Follow-up with Dr. Tam next week as planned. Contact Dr. Tam for any further problems. Return to ED for heavy bleeding. HPI General Mode of arrival: ambulatory. Date/Time Provider Initiated Documentation: 10/19/19 05:59. Limitations to Documentation: no limitations. Information obtained by: patient and RN notes reviewed. 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 Patient is on Eliquis. He woke up with blood all over his pillow and head. Procedure was done yesterday at Dr. Tam's office. He left the dressing in place and presents to ED for evaluation. Related Data Home Medications Medication Instructions Recorded Confirmed vitamin N01-zyxok acid 1 ea PO DAILY 08/23/12 10/16/19 Co Q-10 (with Vit E) 1 ea PO DAILY 11/06/12 10/16/19 nitroglycerin [Nitrostat] 0.4 mg SUBLINGUAL Q5 MIN PRN X3 08/18/16 10/16/19 PRN #60 tab aspirin 81 mg PO DAILY #30 tab-cap 08/03/17 10/16/19 cholecalciferol (vitamin D3) 1,000 unit PO DAILY 10/05/17 10/16/19 spironolactone 25 mg tablet 12.5 mg PO DAILY #45 tab-cap 12/26/18 10/16/19 omeprazole 40 mg capsule,delayed 40 mg PO DAILY #90 tab-cap 02/26/19 10/16/19 release apixaban 5 mg tablet 5 mg PO BID #180 tab-cap 04/04/19 10/16/19 atorvastatin 40 mg tablet 40 mg PO QPM #90 cap 04/04/19 10/16/19 furosemide 40 mg tablet 40 mg PO DAILY #60 tab 04/04/19 10/16/19 losartan 50 mg tablet 50 mg PO DAILY #90 tab-cap 04/04/19 10/16/19 magnesium oxide 400 mg (241.3 mg 400 mg PO BID tab 04/04/19 10/16/19 magnesium) tablet metoprolol succinate 50 mg 50 mg PO BID #180 tab 04/04/19 10/16/19 tablet,extended release 24 hr sildenafil 50 mg tablet 50 mg PO PRN #6 tab-cap 04/04/19 10/16/19 Previous Rx's Medication Instructions Recorded aspirin 81 mg PO DAILY #30 tab-cap 08/03/17 spironolactone 25 mg tablet 12.5 mg PO DAILY #45 tab-cap 12/26/18 omeprazole 40 mg capsule,delayed 40 mg PO DAILY #90 tab-cap 02/26/19 release apixaban 5 mg tablet 5 mg PO BID #180 tab-cap 04/04/19 atorvastatin 40 mg tablet 40 mg PO QPM #90 cap 04/04/19 furosemide 40 mg tablet 40 mg PO DAILY #60 tab 04/04/19 losartan 50 mg tablet 50 mg PO DAILY #90 tab-cap 04/04/19 metoprolol succinate 50 mg 50 mg PO BID #180 tab 04/04/19 tablet,extended release 24 hr sildenafil 50 mg tablet 50 mg PO PRN #6 tab-cap 04/04/19 Allergies Allergy/AdvReac Type Severity Reaction Status Date / Time ibuprofen [From Advil] Allergy Severe RESPIRATORY Unverified 10/16/19 09:55 DISTRESS General Stated Complaint: EarProblem CASTRO: 4 Review of Systems Integumentary/Breasts Skin/Breast: Reports wounds Hematologic/Lymphatic Hematologic/Lymphatic: Reports easy bleeding [facility] Social History Smoking/Tobacco Use Status: Current every day Tobacco Type: cigars Per week: 25 Tobacco: How many years used: 50 Alcohol Intake: current Alcohol Intake frequency: 0-2 drinks per day Alcohol type: wine Drug use: Never Substance use type: does not use Caregiver/Support person: No Household members: spouse Communication Needs: None Pets and animals: No Current gender identity: male What is your relationship status?: How often do you talk on the phone with friends or family?: decline to answer How often do you get together with friends or relatives?: decline to answer How often do you attend uatsdin or mosque services?: decline to answer Do you belong to any clubs or organized social groups?: decline to answer Panel score (0-1 are the most socially isolated patients): 1 What type of physical activity do you participate in: none Duration: 15-30 minutes/day Frequency: 5-6 times per week Debra/Mandaen: Religious Special debra needs: No Do you feel safe at home: Yes Do you feel safe in your relationship?: Yes Exam Const General: cooperative, comfortable and no acute distress Orientation: alert and oriented x3 HENMD Head: normocephalic, atraumatic and other (Blood saturated dressing right temporal region of head with clot present.) Ears: external ears normal Resp Effort & Inspection: normal respiratory effort Neuro General: patient alert, patient oriented x3, gait normal and no focal motor deficits Course Vital Signs Vital signs: Vital Signs Temperature 97.2 F L 10/19/19 05:58 Pulse 87 10/19/19 05:58 Respiratory Rate 18 10/19/19 05:58 Blood Pressure 158/86 H 10/19/19 05:58 Pulse Oximetry 97 10/19/19 05:58 Temperature 97.2 F L 10/19/19 05:58 Temperature Source Skin 10/19/19 05:58 Pulse 87 10/19/19 05:58 Respiratory Rate 18 10/19/19 05:58 Blood Pressure 158/86 H 10/19/19 05:58 Blood Pressure Position Sitting 10/19/19 05:58 Pulse Oximetry 97 10/19/19 05:58 Oxygen Delivery Method Room Air 10/19/19 05:58 Oxygen Flow Rate 0 10/19/19 05:58 Pain Level 0 10/19/19 05:58
[2019-10-19 06:31] VITALS: BP 158/86; PULSE 87; RESP 18; TEMP 36.2; O2SAT 97
== END 2019-10-19 06:26 | disposition home or self-care (01) ==
LOC: ER 06:39
PROVIDERS: Emergency Provider Emergency Medicine; PCP Nurse Practitioner
DX: L76.21 Postprocedural hemorrhage of skin and subcutaneous tissue following a dermatologic procedure (principal); Y84.8 Other medical procedures as the cause of abnormal reaction of the patient, or of later complication, without mention of misadventure at the time of the procedure; C44.40 Unspecified malignant neoplasm of skin of scalp and neck; Z79.01 Long term (current) use of anticoagulants; I48.91 Unspecified atrial fibrillation
CPT/HCPCS: 99214; 99282

== ENCOUNTER → 2020-03-20 11:42 | Outpatient (BNVA) | payer MEDICARE, OTHER, SELFPAY | PROVIDERS: PCP Emergency Medicine; Referring Provider Nurse Practitioner; Visit Provider Internal Medicine Cardiovascular Disease | DX: I25.10 Atherosclerotic heart disease of native coronary artery without angina pectoris (principal); I10 Essential (primary) hypertension; I48.20 Chronic atrial fibrillation, unspecified; Z79.01 Long term (current) use of anticoagulants | CPT/HCPCS: 99214 ==

== ENCOUNTER 2020-04-16 11:19 | Outpatient (REF) | payer MEDICARE, OTHER, SELFPAY ==
[2020-04-16 15:05] LABS: Anion Gap 9.3 mmol/L (3-11); BUN 15 mg/dL (7-18); CO2 29.7 mmol/L (21.0-32.0); CREATININE 0.97 mg/dL (0.70-1.30); Calcium 8.9 mg/dL (8.5-10.1); Calculated LDL 46 mg/dL (<100); Chloride 104 mmol/L (98-107); Cholesterol 125 mg/dL (<200); Glucose 93 mg/dL (74-106); HDL Cholesterol 46 mg/dL (40-60); Potassium 4.1 mmol/L (3.5-5.1); Sodium 143 mmol/L (136-145); Triglyceride 167 mg/dL (<150)
== END 2020-04-16 11:39 ==
LOC: NCHCN 11:19
PROVIDERS: PCP Emergency Medicine; Visit Provider Emergency Medicine
DX: I10 Essential (primary) hypertension (principal)
CPT/HCPCS: 80048; 80061

== ENCOUNTER 2020-11-05 18:35 | Outpatient (REF) | payer MEDICARE, OTHER, SELFPAY ==
[2020-11-05 18:29] LABS: HCT 47.5 % (40.0-50.0); MCH 31.6 pg (27.0-33.0); MCHC 33.7 % (32.0-36.0); MCV 93.7 fL (80-95); MPV 10.4 fL (8.0-11.0); Platelet Count 169 10^3/uL (130-400); RBC 5.07 10^6/uL (4.36-5.78); RDW 13.1 % (11.8-14.1)
[2020-11-05 18:45] LABS: ALT 40 U/L (16-63); AST 28 U/L (15-37); Alkaline Phosphatase 82 U/L (46-116); BUN 25 mg/dL (7-18); Bilirubin, Total 0.9 mg/dL (0.2-1.0); CREATININE 1.2 mg/dL (0.70-1.30); Calcium 8.9 mg/dL (8.5-10.1); Chloride 107 mmol/L (98-107); Estimated GFR 58.26 (mL/min/1.73m2); Glucose 175 mg/dL (74-106); Potassium 3.9 mmol/L (3.5-5.1); Sodium 143 mmol/L (136-145); Total Protein 6.9 g/dL (6.4-8.2)
== END 2020-11-05 18:36 | disposition home or self-care (01) ==
LOC: LBN 18:35
PROVIDERS: PCP Emergency Medicine; Visit Provider Emergency Medicine
DX: H53.2 Diplopia; I77.810 Thoracic aortic ectasia
CPT/HCPCS: 80053; 85027

== ENCOUNTER 2020-11-11 03:10 | Outpatient (CLI) | payer MEDICARE, OTHER, SELFPAY ==
--- NOTE | 2020-11-11 | DI.CT_ITS ---
Exam(s) CT HEAD WO/W EXAM: CT HEAD WO/W CLINICAL HISTORY: DIPLOPIA, DOUBLE VISION BOTH EYES, H53.2. TECHNIQUE: Imaging Protocol: Both noninfused and contrast infused CT scans of the brain were perform ed. IV Contrast Dose =75 cc Axial computed tomography images with coronal and sagittal reformatted images were created and review ed COMPARISON: CT TEMPORAL BONE WITHOUT CONTRAST from 12/07/2014 FINDINGS: There are no skull fractures nor fluid in the visualized paranasal sinuses. There is no evidence of intracranial hemorrhage, mass effect, or shift of midline structures. There are no extra-axial fluid collections. The ventricles are not enlarged or shifted and there is no blo od within the ventricular system nor within the basal cisterns.There is mild bilateral periventricula r signal abnormality at hypodensity in in the periventricular white matter. There is also a small 5 x 4 millimeter nonhemorrhagic lacunar infarct in the immediate left periventricular white matter note d. There are no ring enhancing lesions in the brain and there is no abnormal meningeal enhancement, foca l or diffuse. IMPRESSION: There is a 5 x 4 millimeter lacunar infarct in the left periventricular white matter, age indetermina te. No evidence of intracranial hemorrhage. No ring enhancing lesions in the brain nor abnormal men ingeal enhancement. If clinically indicated follow-up MRI with diffusion imaging can be performed. . RADIATION DOSE DELIVERED: 1,615.66mGy.cm Total DLP DATA REPOSITORY: All CT scans at this facility are submitted to the National Radiology Data Registry (NRDR) Dose Index Registry (DIR) with the [employer] ([employer]). RADIATION OPTIMIZATION: All CT scans at this facility use at least one of these dose optimization te chniques: automated exposure control; mA and/or kV adjustment per patient size (includes targeted exa ms where dose is matched to clinical indication); or iterative reconstruction.
[2020-11-11] MEDS: Normal Saline - Diluent 50 ML VIAL IV (16:02)
[2020-11-11] MEDS: Omnipaque 350 MG/ML 100 ML BTL IJ (16:03)
== END 2020-11-11 03:30 ==
PROVIDERS: PCP Emergency Medicine; Visit Provider Emergency Medicine
DX: I63.81 Other cerebral infarction due to occlusion or stenosis of small artery (principal); H53.2 Diplopia
CPT/HCPCS: 70470; J3490

== ENCOUNTER 2020-11-25 14:28 | Emergency (ER) | payer MEDICARE, OTHER, SELFPAY ==
[2020-11-25] VITALS (43 sets, daily range): BP systolic 104–144; BP diastolic 56–97; PULSE 66–142; RESP 16–30; TEMP 36.4–38.6; O2SAT 86–96
--- NOTE | 2020-11-25 14:30 | DI.RAD_ITS ---
Exam(s) XR PORTABLE CHEST AP EXAM: XR PORTABLE CHEST AP CLINICAL HISTORY: cough/fever. TECHNIQUE: 2D digital imaging was performed. COMPARISON: CR XR RIBS LT W PA LAT CHEST from 10/16/2019 FINDINGS: Chest leads in place. Cardiomegaly. The mediastinum is not widened. There is COPD findings. Left lung is clear. Mild increased markings in the right lung base. No ple ural effusions. No pulmonary edema. No pneumothorax. IMPRESSION: There are mild increased markings in the right lung base. Possible early developing infiltrate. No pleural effusions. No pulmonary edema. DATA REPOSITORY: RADIATION DOSE DELIVERED: All CT scans at this facility use at least one of these dose optimization techniques: automated exposure control; mA and/or kV adjustment per patient size (includes targeted e xams where dose is matched to clinical indication); or iterative reconstruction.
--- NOTE | 2020-11-25 14:37 | W.ED.GENAD ---
Discharge Plan Disposition Patient Disposition: HOME Condition: Improving Discharge Details Clinical Impression: Dehydration, Hypomagnesemia Primary Care Provider: Rocael Maurer ED Provider: Ruby Hernandez Home Meds and New Rx's Prescriptions: Continued sildenafil [Viagra] 50 mg tablet 50 mg PO PRN Qty: 6 RF: 5 magnesium oxide 400 mg (241.3 mg magnesium) tablet 400 mg PO BID RF: 0 PreserVision AREDS [id number] emhk-[id number] capsule 1 cap PO BID RF: 0 vitamin C45-hhdfu acid 1 EACH tablet 1 ea PO DAILY RF: 0 Co Q-10 (with Vit E) 1 EACH capsule 1 ea PO DAILY RF: 0 nitroglycerin [Nitrostat] 0.4 MG tablet, sublingual 0.4 mg Sublingual Q5 MIN PRN X3 PRNQty: 60 RF: 0 aspirin 81 MG tablet,chewable 81 mg PO DAILY Qty: 30 RF: 0 cholecalciferol (vitamin D3) 1,000 UNIT capsule 1,000 unit PO DAILY RF: 0 spironolactone 25 mg tablet 12.5 mg PO DAILY Qty: 45 RF: 3 omeprazole 40 mg capsule,delayed release(DR/EC) 40 mg PO DAILY Qty: 90 RF: 4 losartan 50 mg tablet 50 mg PO DAILY Qty: 90 RF: 3 atorvastatin [Lipitor] 40 mg tablet 40 mg PO QPM Qty: 90 RF: 4 metoprolol succinate 50 mg tablet extended release 24 hr 50 mg PO BID Qty: 180 RF: 3 furosemide 40 mg tablet 40 mg PO DAILY Qty: 60 RF: 6 Eliquis 5 mg tablet 5 mg PO BID Qty: 180 RF: 4 Discharge Instructions Instructions: Dehydration (ED), Hypomagnesemia (ED) Additional Instructions: You are improving after the hydration. Your heart rate and labs have also improved. I do not find any focal area of infection. I am concerned that this may be associated dehydration as well as with significant heat we experience over the past few days. Please increase your oral hydration. Please take your magnesium once you return home. Please call Dr. Gotti's office tomorrow to schedule a follow-up appointment in the next 2 days for reevaluation. If you develop chest pain, shortness of breath, inability stay hydrated, abdominal pain or other new/worsening symptoms please seek care urgently once again. Referrals: Rocael Maurer DO [Primary Care Provider] - Discharge Data Discharge Date/Time-TO BE ENTERED AT DEPARTURE: 11/25/20 18:40 Medical Decision Making <GRISELDA Ferrari - Last Filed: 11/26/20 11:02> 80-year-old gentleman, past medical history of coronary stent, on apixaban, CAD, vertigo, hypertension, presenting to the ER simply not feeling well since Tuesday, fever, diaphoresis, mild headache, dry cough, nausea, fatigue and body aches. Clinically he is diaphoretic, tachycardic, no clear source of infection. He is currently afebrile and blood pressure is 137/79. Will obtain IV access, initiate a septic work-up including a single troponin and EKG given his diaphoresis and tachycardia. We will give a liter of IV fluid, lactated Ringer's, and IV Zofran. No evidence of meningeal signs. Abdomen is soft, nontender, certainly nonsurgical. Differential includes but not excluded to sepsis, pneumonia, UTI, other infectious process, pyelonephritis, etc. Awaiting blood cultures. Once blood cultures are obtained and we have a better idea of the source of infection will initiate IV antibiotic therapy Lactate 2.1, WBC count of 4.40. Platelet count 93. Chemistries pending. Urine with 15 ketones, negative for nitrate or leuk esterase. Medical Records Medical records reviewed: Yes I reviewed the patient's medical records. Lab Data Lab results reviewed: Yes I reviewed the patient's lab results. Labs: 11/25/20 15:30 Urine - Reflex from Ua Urine Culture - Pending 11/25/20 15:10 Blood Blood Culture - Pending 11/25/20 15:10 Blood Blood Culture - Pending Laboratory Tests Range/Units 11/25/20 11/25/20 11/25/20 14:37 15:10 15:10 WBC (4.4-10.8) 10^3/uL 4.40 RBC (4.36-5.78) 10^6/uL 4.88 Hgb (13.5-17.5) g/dL 15.4 Hct (40.0-50.0) % 44.9 MCV (80-95) fL 92.0 MCH (27.0-33.0) pg 31.6 MCHC (32.0-36.0) % 34.3 RDW (11.8-14.1) % 13.3 Plt Count (130-400) 10^3/uL 93 L MPV (8.0-11.0) fL 9.9 Immature Gran % 0.5 Neutrophils % 77.9 Lymphocytes % 15.0 Monocytes % 6.1 Eosinophils % 0.0 Basophils % 0.5 Nucleated RBC % % 0 Absolute Neutrophils (1.2-6.7) 10^3/uL 3.43 Absolute Lymphocytes (1.2-3.4) 10^3/uL 0.66 L Absolute Monocytes (0.1-0.8) 10^3/uL 0.27 Absolute Eosinophils (0.0-0.7) 10^3/uL 0.00 Absolute Basophils (0.0-0.2) 10^3/uL 0.02 RBC Morphology Normal VBG Lactate (0.6-1.4) mmol/L 2.2 H* TSH Cancelled Urine Color (Yellow) Urine Clarity (Clear) Urine pH (5-8) Ur Specific [place] (1.005-1.025) Urine Protein (Negative) mg/dL Urine Ketones (Negative) mg/dL Urine Blood (Negative) Urine Nitrite (Negative) Urine Bilirubin (Negative) Urine Urobilinogen (Up TO 0.2) EU/dL Ur Leukocyte Esterase (Negative) Urine RBC (0-2) HPF Urine WBC (0-5) HPF Ur Epithelial Cells (Negative) HPF Urine Crystals (Negative) HPF Urine Bacteria (Negative) HPF Urine Casts (Negative) LPF Urine Mucus (Negative) Ur Culture Indicated? Urine Glucose (Negative) mg/dL COVID-19 Source Range/Units 11/25/20 11/25/20 15:17 15:30 WBC (4.4-10.8) 10^3/uL RBC (4.36-5.78) 10^6/uL Hgb (13.5-17.5) g/dL Hct (40.0-50.0) % MCV (80-95) fL MCH (27.0-33.0) pg MCHC (32.0-36.0) % RDW (11.8-14.1) % Plt Count (130-400) 10^3/uL MPV (8.0-11.0) fL Immature Gran % Neutrophils % Lymphocytes % Monocytes % Eosinophils % Basophils % Nucleated RBC % % Absolute Neutrophils (1.2-6.7) 10^3/uL Absolute Lymphocytes (1.2-3.4) 10^3/uL Absolute Monocytes (0.1-0.8) 10^3/uL Absolute Eosinophils (0.0-0.7) 10^3/uL Absolute Basophils (0.0-0.2) 10^3/uL RBC Morphology VBG Lactate (0.6-1.4) mmol/L TSH Urine Color (Yellow) Magali Urine Clarity (Clear) Clear Urine pH (5-8) 6.5 Ur Specific [place] (1.005-1.025) 1.025 Urine Protein (Negative) mg/dL 100 H Urine Ketones (Negative) mg/dL 15 H Urine Blood (Negative) Trace-intact H Urine Nitrite (Negative) Negative Urine Bilirubin (Negative) Small H Urine Urobilinogen (Up TO 0.2) EU/dL 1.0 H Ur Leukocyte Esterase (Negative) Negative Urine RBC (0-2) HPF 5-10 H Urine WBC (0-5) HPF 5-10 Ur Epithelial Cells (Negative) HPF Negative Urine Crystals (Negative) HPF Negative Urine Bacteria (Negative) HPF Few Urine Casts (Negative) LPF 3-5 Coarse Granular Urine Mucus (Negative) Heavy Ur Culture Indicated? Yes Urine Glucose (Negative) mg/dL Negative COVID-19 Source Nasal/Nares <GRISELDA Macdonald - Last Filed: 11/25/20 18:50> Care transition himself from Huang Balderas PA-C. Please see his initial note regarding history, presentation and exam. In brief, patient is a pleasant 80-year-old gentleman who has had febrile illness for the past few days with a T-max of 103 degrees at home. Came in appearing pale, diaphoretic, tachycardic. He has multiple complaints and no clear etiology of his fever. Has fairly generalized symptoms. At the time I assumed care, labs and imaging were pending. Patient has received fluids and heart rate has been downtrending, currently 91 with stable blood pressure. Patient remains afebrile. Labs reviewed. No leukocytosis. Stable H&H. His platelets are low at 93, this is down from 169 on 11/05/2020. His lactate is elevated at 2.2. CMP significant for magnesium of 1.3, will replenish with IV. AST slightly elevated at 52, she has an elevated intermittently historically. TSH within normal limits. Procalcitonin is pending. Urine significant for protein, ketones, trace blood. Negative for leukoesterase, nitrite. Covid negative. Chest x-ray reviewed by radiologist: FINDINGS: Lungs: Unremarkable. No consolidation. Pleural spaces: Unremarkable. No pleural effusion. No pneumothorax. Heart/Mediastinum: Unremarkable. No cardiomegaly. Bones/joints: Degenerative changes in the spine. IMPRESSION: No pulmonary infiltrates. Plan to reevaluate the patient for other potential source of infection. Reevaluated the patient. Normal HEENT exam. No nuchal rigidity. No neurologic findings. Lungs are clear. Heart rate is down normal cardiac exam. 2+ distal pulses in all extremities. No lower extremity edema, calves are soft and nontender. Abdomen is benign and nontender. Rectal exam is normal, prostate is enlarged but nontender, not boggy. No penile or testicular tenderness. Patient and I discussed work-up completed thus far. I do not have any focal area of infection to account for his fever. However, for the past few days the temperatures have been in the 90s. Patient does not have air-conditioning. He states that he has been trying to stay in doors but does note that he has been warm. Wondering if this may be associated with dehydration and temperature externally. Will repeat lactate. Patient I discussed disposition. He would prefer discharge to home if possible. If patient is safe for discharge, I do feel that prompt follow-up with primary care next 1 to 2 days would be appropriate. In regard to the hypomagnesemia, patient reports that he typically takes oral magnesium but did not take any today. Repeat lactate is 1.2. Discussed these findings with the patient. He continues to feel like he is much improved. Prefers to be discharged home at this time which I do feel is appropriate. Spoke with patient's , Desiree, she advised the patient really has not had much to drink over the past few days. She agrees that this is likely associated with dehydration. Is in agreement with bringing him home at this time. She will call Dr. Maurer's office to schedule a prompt follow-up in the next few days. I also relayed return precautions to his . All of their questions and concerns were addressed and they are in agreement this plan. Just prior to discharge, vital signs are rechecked and the patient is now noted to be febrile. This is the first time that he has had a documented fever since being here. States that he continues to feel well. Patient I discussed continued option for further evaluation of his fever. We did discuss imaging of his abdomen and/or chest. Patient declines any further imaging. Prefers to be discharged home particularly as he is feeling some proved. He does agree to p.o. Tylenol. Discussed that the urine did have few bacteria and has reflex to culture although it was nitrate and leukocyte esterase negative. We discussed empirically treating with antibiotics versus waiting until culture has returned. Patient would prefer to hold off until culture has returned. Patient would prefer to treat the fever with Tylenol, continue to hydrate at home and follow-up closely with Dr. Gotti. He is aware that he may return anytime for continued evaluation and treatment. All his questions and concerns were addressed and he is in agreement with this plan. HPI <GRISELDA Ferrari - Last Filed: 11/26/20 11:02> General Mode of arrival: ambulatory. Date/Time Provider Initiated Documentation: 11/25/20 14:29. Limitations to Documentation: no limitations. Information obtained by: patient. HPI Narrative: This is an 80-year-old gentleman, past medical history that includes vertigo, CAD, hypertension, coronary stent placement, on apixaban daily, presenting from the urgent care for evaluation of fever, lethargy, body aches, nausea, dull headache. Patient states that his symptoms began on Tuesday, has occasionally taken Tylenol for his fever, T-max 103.4. He is Covid vaccinated. Denies recent travel or sick contacts. Denies visual changes, sore throat, neck pain, chest pain, shortness of breath, vomiting, diarrhea, constipation, dysuria, hematuria, skin rash. He admits to body aches, dry cough, initially told me that he had abdominal pain but later states that he does not actually have pain it is more of a nauseous feeling. Related Data Home Medications Medication Instructions Recorded Confirmed vitamin T12-mbxyd acid 1 ea PO DAILY 08/23/12 11/25/20 Co Q-10 (with Vit E) 1 ea PO DAILY 11/06/12 11/25/20 nitroglycerin [Nitrostat] 0.4 mg SUBLINGUAL Q5 MIN PRN X3 08/18/16 11/25/20 PRN #60 tab aspirin 81 mg PO DAILY #30 tab-cap 08/03/17 11/25/20 cholecalciferol (vitamin D3) 1,000 unit PO DAILY 10/05/17 11/25/20 sildenafil 50 mg tablet 50 mg PO PRN #6 tab-cap 04/04/19 04/16/20 spironolactone 25 mg tablet 12.5 mg PO DAILY #45 tab-cap 12/25/19 11/25/20 omeprazole 40 mg capsule,delayed 40 mg PO DAILY #90 tab-cap 03/07/20 11/25/20 release vitamins A,C,V-vsgi-zxuktu 14,320 1 cap PO BID 03/20/20 11/25/20 unit-226 mg-200 unit capsule losartan 50 mg tablet 50 mg PO DAILY #90 tab-cap 04/11/20 11/25/20 atorvastatin 40 mg tablet 40 mg PO QPM #90 cap 05/13/20 11/25/20 furosemide 40 mg tablet 40 mg PO DAILY #60 tab 05/13/20 11/25/20 metoprolol succinate 50 mg 50 mg PO BID #180 tab 05/13/20 11/25/20 tablet,extended release 24 hr apixaban 5 mg tablet 5 mg PO BID #180 tab-cap 06/16/20 11/25/20 magnesium oxide 400 mg (241.3 mg 400 mg PO BID tab 11/05/20 11/25/20 magnesium) tablet Previous Rx's Medication Instructions Recorded aspirin 81 mg PO DAILY #30 tab-cap 08/03/17 sildenafil 50 mg tablet 50 mg PO PRN #6 tab-cap 04/04/19 spironolactone 25 mg tablet 12.5 mg PO DAILY #45 tab-cap 12/25/19 omeprazole 40 mg capsule,delayed 40 mg PO DAILY #90 tab-cap 03/07/20 release losartan 50 mg tablet 50 mg PO DAILY #90 tab-cap 04/11/20 atorvastatin 40 mg tablet 40 mg PO QPM #90 cap 05/13/20 furosemide 40 mg tablet 40 mg PO DAILY #60 tab 05/13/20 metoprolol succinate 50 mg 50 mg PO BID #180 tab 05/13/20 tablet,extended release 24 hr apixaban 5 mg tablet 5 mg PO BID #180 tab-cap 06/16/20 Allergies Allergy/AdvReac Type Severity Reaction Status Date / Time ibuprofen [From Advil] Allergy Severe RESPIRATORY Verified 11/25/20 15:53 DISTRESS General CASTRO: 4 Review of Systems <GRISELDA Ferrari - Last Filed: 11/26/20 11:02> Constitutional Constitutional: Reports fatigue, Reports fever(s) and Reports headache(s) Eyes Eyes: Denies change in vision ENT Ears, Nose, Mouth, and Throat: Reports headache(s), Denies neck pain and Denies sore throat Cardiovascular Cardiovascular: Denies chest pain and Denies dyspnea Respiratory Respiratory: Reports cough and Denies dyspnea Gastrointestinal Gastrointestinal: Reports abdominal pain, Denies constipation, Denies diarrhea, Reports nausea and Denies vomiting Genitourinary Genitourinary: Denies hematuria and Denies dysuria Musculoskeletal Musculoskeletal: Denies back pain and Denies neck pain Integumentary/Breasts Skin/Breast: Reports rash Neurologic Neurologic: Reports headache(s) and Reports weakness (Generalized) Endocrine Endocrine: Reports fatigue Hematologic/Lymphatic Hematologic/Lymphatic: Denies easy bleeding and Denies easy bruising PFSH <GRISELDA Ferrari - Last Filed: 11/26/20 11:02> Medical History Benign paroxysmal positional vertigo (01/10/18) Bilateral shoulder pain CAD (coronary artery disease) Carpal tunnel syndrome Cataract Double vision with both eyes open Essential hypertension Heart disease History of alcoholism Hypercholesterolemia Status post percutaneous transluminal coronary angioplasty (~2008) stent placement Surgical History Colonoscopy - IV Sedation (09/06/12) DR. MOORE; POOR PREP, TUBULAR ADENOMA Colonoscopy - MAC (01/20/18) EGD - MAC (03/21/15) DR.TERRY HERNANDEZ History of esophagogastroduodenoscopy (05/05/15) History of umbilical hernia repair Repair of umbilical hernia (~2004) Status post coronary artery stent placement 5 Status post hip replacement x2 Stent placement (~2005) X 3 LAD; LCX Total replacement of hip (~2009) Family History Mother , AGE 85 Breast cancer Father , AGE 61 Stroke Brother , AGE 66 Essential hypertension Heart disease Hyperlipidemia Social History Smoking/Tobacco Use Status: Current every day Tobacco Type: cigars Per week: 25 Tobacco: How many years used: 50 Smoking risk assessment performed?: Yes Alcohol Intake: current Alcohol Intake frequency: 0-2 drinks per day Alcohol type: wine Drug use: Never Substance use type: does not use Caregiver/Support person: No Household members: spouse Communication Needs: None Pets and animals: No Current gender identity: male What is your relationship status?: How often do you talk on the phone with friends or family?: decline to answer How often do you get together with friends or relatives?: decline to answer How often do you attend yarsanism or lutheran services?: decline to answer Do you belong to any clubs or organized social groups?: decline to answer Panel score (0-1 are the most socially isolated patients): 1 What type of physical activity do you participate in: none Duration: 15-30 minutes/day Frequency: 5-6 times per week Debra/Yarsanism: Adventism Special debra needs: No Do you feel safe at home: Yes Do you feel safe in your relationship?: Yes Exam <GRISELDA Ferrari - Last Filed: 11/26/20 11:02> Const General: cooperative, comfortable and diaphoretic Orientation: alert, awake, oriented to person, oriented to place and confused (Unsure of exact date) [facility] Head: normal to inspection, normocephalic and atraumatic Face and sinus: normal facial exam Mouth: moist mucous membranes abnormal (Slightly dry) Throat: posterior oropharynx normal Eyes General: appearance normal, both eyes and all related structures Conjunctivae: conjunctivae normal Neck Neck: normal visual inspection, full ROM, no meningeal signs, trachea midline, supple and nontender Resp Effort & Inspection: normal respiratory effort, able to speak in complete sentences and tachypneic Auscultation: diminished lung sounds bilaterally in the lower lung buckley Cardio Rate: tachycardic (120) Rhythm: regular rhythm GI Palpation: soft, not firm, no guarding, no pulsatile masses and nontender Auscultation: normal bowel sounds Back/Spine/Pelvis Back: no CVA tenderness and No back tenderness Skin General skin exam: no rashes or lesions noted Neuro General: patient alert, patient awake, moves all extremities and no focal motor deficits Cognition: normal cognition Speech: speech normal Gait: normal gait Motor: muscle tone normal throughout Sensory Exam: no sensory deficits noted Extrem General: normal to inspection, full ROM and capillary refill normal Psych Appearance: grossly normal Mental Status: mental status grossly normal Sign Out <GRISELDA Ferrari - Last Filed: 11/26/20 11:02> Sign Out Data: Sign Out Comment: Not feeling well since Tuesday, dull headache, fever, chills, body aches, dry cough, nausea. No clear source. Given IV fluid, normal saline, liter of lactated Ringer's, IV Zofran. Lactate 2.2 normal white blood cell count. Last updated by Ab Balderas PA at 11/25/20 16:06
--- NOTE | 2020-11-25 14:45 | RT.EKG_ITS ---
APPROVED REPORT Exam: Resting ECG Reason for Exam: possible sepsis Patient Location: E HR:109 bpm ECG Measurements Heart Rate 109 AXIS DE [id number] P [id number] QRSd 166 QRS 53 QT 384 T 15 QTc 519 Conclusion Atrial fibrillation...? atrial activity Right bundle branch block...QRSd>120, terminal axis(90,270) Physician: no stemi, pvc's present
[2020-11-25] MEDS: Normal Saline 1,000 ML 1000 ML IV (14:55)
[2020-11-25] MEDS: Ondansetron 4 MG/2 ML VIAL IVP (15:00)
[2020-11-25 15:27] LABS: Source Nasal/Nares
[2020-11-25 15:40] LABS: Abs Immature Grans 0.02 10^3/uL (0.0-0.06); Absolute Basophil Count 0.02 10^3/uL (0.0-0.2); Absolute Lymphocyte Count 0.66 10^3/uL (1.2-3.4); Absolute Monocyte Count 0.27 10^3/uL (0.1-0.8); Absolute Neutrophil Count 3.43 10^3/uL (1.2-6.7); Basophils % 0.5; HCT 44.9 % (40.0-50.0); HGB 15.4 g/dL (13.5-17.5); Immature Grans % 0.5; MCH 31.6 pg (27.0-33.0); MCHC 34.3 % (32.0-36.0); MPV 9.9 fL (8.0-11.0); Monocytes % 6.1; Neutrophils % 77.9; Nucleated RBC 0 %; RBC 4.88 10^6/uL (4.36-5.78); RDW 13.3 % (11.8-14.1); RDW-SD 45.5 fL
[2020-11-25 15:43] LABS: Lactate 2.2 mmol/L (0.6-1.4)
[2020-11-25 15:45] LABS: Bilirubin Small (Negative); Blood Trace-intact (Negative); Clarity Clear (Clear); Glucose Negative (Negative); Ketones 15 mg/dL (Negative); Leukocyte Esterase Negative (Negative); Nitrite Negative (Negative); Specific Gravity 1.025 (1.005-1.025); pH 6.5 (5-8)
[2020-11-25 15:55] LABS: Platelet Count 93 10^3/uL (130-400)
[2020-11-25 15:56] LABS: Diff Comment PLT Morph Reviewed; RBC Morphology Normal
[2020-11-25 15:59] LABS: Bacteria Few HPF (Negative); C & S Indicated? Yes; Casts 3-5 Coarse Granular LPF (Negative); Crystals Negative HPF (Negative); Epithelial Cells Negative HPF (Negative); Mucus Heavy (Negative)
[2020-11-25 16:17] LABS: ALT 49 U/L (16-63); AST 52 U/L (15-37); Albumin 3.9 g/dL (3.4-5.0); Alkaline Phosphatase 79 U/L (46-116); BUN 18 mg/dL (7-18); Bilirubin, Total 1.1 mg/dL (0.2-1.0); CREATININE 1.3 mg/dL (0.70-1.30); Calcium 8.9 mg/dL (8.5-10.1); Chloride 100 mmol/L (98-107); Estimated GFR 53.12 (mL/min/1.73m2); Glucose 133 mg/dL (74-106); Magnesium 1.3 mg/dL (1.8-2.4); Potassium 3.5 mmol/L (3.5-5.1); Sodium 139 mmol/L (136-145); TSH 0.76 uIU/mL (0.36-3.74); Total Protein 7.8 g/dL (6.4-8.2)
[2020-11-25 16:19] LABS: COVID-19 PCR Negative (Negative)
[2020-11-25 16:30] LABS: Troponin I < 0.05 ng/mL (<0.06)
[2020-11-25] MEDS: Lactated Ringers 1,000 ML 1000 ML IV (16:35)
--- NOTE | 2020-11-25 16:41 | DI.VRAD_ITS ---
PROCEDURE INFORMATION: Exam: XR Chest Exam date and time: 11/25/2020 2:41 PM Age: 80 years old Clinical indication: Cough and fever TECHNIQUE: Imaging protocol: XR of the chest. Views: 1 view. COMPARISON: CR XR RIBS LT W PA LAT CHEST 10/16/2019 10:07 AM FINDINGS: Lungs: Unremarkable. No consolidation. Pleural spaces: Unremarkable. No pleural effusion. No pneumothorax. Heart/Mediastinum: Unremarkable. No cardiomegaly. Bones/joints: Degenerative changes in the spine. IMPRESSION: No pulmonary infiltrates. Dictated and Authenticated by: Faith Cain MD. Ordering:RAYMOND Berger MD
[2020-11-25 17:10] LABS: Procalcitonin 0.1 ng/mL
[2020-11-25] MEDS: MAGNESIUM SULFATE 2 GM/50 ML BAG IVPB (17:15)
[2020-11-25 17:47] LABS: Lactate 1.2 mmol/L (0.6-1.4)
--- NOTE | 2020-11-26 21:49 | W.ED.FU ---
I received a call from the lab 11-26-20 at approximately 2030. One of the 4 blood culture bottles resulted with gram-positive cocci. I was able to personally speak with the patient at 2037. He states that overall he is feeling better but symptoms have not resolved completely. Denies any ongoing fevers. Patient states that he is scheduled to be seen by his primary care provider tomorrow at 10 AM. Because he is feeling better overall, will not return to the ER immediately and instead will wait for his evaluation tomorrow, understands that they may refer him back to the ER for further evaluation. Patient was reminded that we are happy to care for him at any time and was encouraged to return to the ER for new or worsening symptoms.
[2020-11-27 10:17] LABS: Lyme Ab w Rflx to Lyme Confirm Negative (Negative)
[2020-11-28 11:58] LABS: Anaplasma phagocytophilum Negative (Negative); B. miyamotoi PCR Negative (Negative); Babesia divergens/MO-1 Negative (Negative); Babesia duncani Negative (Negative); Babesia microti Negative (Negative); Ehrlichia chaffeensis Negative (Negative); Ehrlichia ewingii/canis Negative (Negative); Ehrlichia muris eauclairensis Negative (Negative)
== END 2020-11-25 18:40 | disposition home or self-care (01) ==
PROVIDERS: Physician Assistant; Emergency Provider Physician Assistant; PCP Emergency Medicine
DX: E83.42 Hypomagnesemia (principal); E86.0 Dehydration; R50.9 Fever, unspecified; R78.81 Bacteremia; Z20.822 Contact with and (suspected) exposure to COVID-19; Z03.818 Encounter for observation for suspected exposure to other biological agents ruled out
CPT/HCPCS: 36415; 80053; 84145; 87040; 87077; 87635; 87798; 93005; 96361; 96365; 96366; 96375; 99285; 71045; 81003; 81015; 83605; 83735; 84443; 84484; 85025; 86618; 87086; 87186; 93010; J2405

== ENCOUNTER 2020-12-02 09:56 | Outpatient (CLI) | payer MEDICARE, OTHER, SELFPAY ==
[2020-12-02 12:43] LABS: Abs Immature Grans 0.04 10^3/uL (0.0-0.06); Absolute Basophil Count 0.05 10^3/uL (0.0-0.2); Absolute Eosinophil Count 0.15 10^3/uL (0.0-0.7); Absolute Lymphocyte Count 2.13 10^3/uL (1.2-3.4); Absolute Monocyte Count 0.85 10^3/uL (0.1-0.8); Absolute Neutrophil Count 3.79 10^3/uL (1.2-6.7); Basophils % 0.7; Eosinophils % 2.1; HCT 40.5 % (40.0-50.0); HGB 13.7 g/dL (13.5-17.5); Immature Grans % 0.6; Lymphocytes % 30.4; MCH 31.1 pg (27.0-33.0); MCHC 33.8 % (32.0-36.0); MCV 91.8 fL (80-95); MPV 9.8 fL (8.0-11.0); Monocytes % 12.1; Neutrophils % 54.1; Nucleated RBC 0 %; Platelet Count 237 10^3/uL (130-400); RBC 4.41 10^6/uL (4.36-5.78); RDW 13.5 % (11.8-14.1); WBC 7.01 10^3/uL (4.4-10.8)
[2020-12-02 12:59] LABS: ALT 65 U/L (16-63); AST 33 U/L (15-37); Albumin 3.4 g/dL (3.4-5.0); Alkaline Phosphatase 85 U/L (46-116); Anion Gap 9.2 mmol/L (3-11); BUN 15 mg/dL (7-18); Bilirubin, Total 0.9 mg/dL (0.2-1.0); CO2 28.8 mmol/L (21.0-32.0); CREATININE 0.9 mg/dL (0.70-1.30); Calcium 8.5 mg/dL (8.5-10.1); Chloride 106 mmol/L (98-107); Glucose 94 mg/dL (74-106); Magnesium 1.5 mg/dL (1.8-2.4); Potassium 4.1 mmol/L (3.5-5.1); Sodium 144 mmol/L (136-145); Total Protein 6.4 g/dL (6.4-8.2)
== END 2020-12-02 09:57 | disposition home or self-care (01) ==
LOC: LOS 09:57
PROVIDERS: Nurse Practitioner; PCP Emergency Medicine; Visit Provider Emergency Medicine
DX: I10 Essential (primary) hypertension (principal); I77.810 Thoracic aortic ectasia; E86.0 Dehydration; E83.42 Hypomagnesemia; R50.9 Fever, unspecified; A49.9 Bacterial infection, unspecified
CPT/HCPCS: 80053; 83735; 85025; 86140

== ENCOUNTER 2020-12-21 10:40 | Emergency (ER) | payer MEDICARE, OTHER, SELFPAY ==
[2020-12-21 10:44] VITALS: BP 141/88; PULSE 63; RESP 17; TEMP 36.7; O2SAT 98
--- NOTE | 2020-12-21 11:00 | DI.CT_ITS ---
Exam(s) CT NECK CHEST W EXAM: CT NECK CHEST W CLINICAL HISTORY: right neck swelling and pain 1 day, smoker TECHNIQUE: Imaging Protocol: Axial computed tomography images with coronal and sagittal reformatted images were created and reviewed CONTRAST MATERIAL: Intravenous: Omnipaque 350 Contrast volume:structured data in ml. COMPARISON: CT CT THORAX ABD/PEL CTA from 07/02/2019 FINDINGS: CT neck: Orbits and orbital soft tissues: Within normal limits. Visualized paranasal sinuses: Within normal limits. Nasopharynx: Within normal limits. Oropharynx: Within normal limits. Hypopharynx: Within normal limits. Larynx: Within normal limits. Retropharyngeal space: Within normal limits. Parotids/submandibular: Within normal limits. Thyroid gland: Within normal limits. Lymphadenopathy: There is a 2 x 1.2 cm enlarged lymph nodes posterior to the right internal jugular vein at the level of the thyroid cartilage. Trachea: Within normal limits. Lung apices: Within normal limits. Bones: Degenerative changes in the spine. Carotids/Jugular: Atherosclerosis. Soft tissues: There is a lobulated multi-cystic mass in the right neck located deep to the right deyanira rnocleidomastoid muscle and anterior lateral to the right common carotid artery and right internal ca rotid artery. The mass measures 4.2 x 2.7 x 4.8 cm. The banks of the mass appears thickened and enh ance. It appears indistinct from the adjacent arteries and jugular vein. It does not appear to invo lve the adjacent right submandibular or parotid glands. CT chest with: Tracheobronchial tree: Patent where visualized. Mediastinum and [place]: No dominant adenopathy or fluid collection. Pulmonary parenchyma: No consolidation or dominant measurable mass. There is scarring or atelectasis in the lung bases bilaterally. Pleura: No effusion or pneumothorax. Heart: Cardiomegaly. Moderate coronary artery calcification. No significant pericardial effusion. Aorta: The ascending aorta measures 4.5 cm in diameter. No evidence of dissection. Mild atheroscler osis. Upper abdomen: Status post cholecystectomy. Lymph nodes: Within normal limits. Bones: There are old rib fractures. 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 No acute abnormality. Soft tissues: Unremarkable. IMPRESSION: 1. No acute pulmonary process. 2. Cardiomegaly. 3. Ectasia of the thoracic ascending aorta. 4. 4.8 cm heterogeneous cystic and solid mass in the right neck. Primary diagnostic concern is for a primary head and neck neoplasm. Abscess or adenopathy should also be considered. 5. Enlarged lymph nodes in the neck particularly on the right. RADIATION DOSE DELIVERED: 1,652.59mGy.cm Total DLP DATA REPOSITORY: All CT scans at this facility are submitted to the National Radiology Data Registry (NRDR) Dose Index Registry (DIR) with the [employer] ([employer]). RADIATION OPTIMIZATION: All CT scans at this facility use at least one of these dose optimization te chniques: automated exposure control; mA and/or kV adjustment per patient size (includes targeted exa ms where dose is matched to clinical indication); or iterative reconstruction.
--- NOTE | 2020-12-21 11:08 | W.ED.GENAD ---
Discharge Plan Disposition Patient Disposition: HOME Condition: Stable Discharge Details Clinical Impression: Mass of right side of neck Primary Care Provider: Rocael Maurer ED Provider: Santiago Mohan Home Meds and New Rx's Prescriptions: New amoxicillin-pot clavulanate [Augmentin] 875-125 mg tablet 1 tab PO BID Qty: 19 RF: 0 Continued magnesium oxide 400 mg (241.3 mg magnesium) tablet 400 mg PO BID RF: 0 PreserVision AREDS [id number],[id number] [id number] capsule 1 cap PO BID RF: 0 vitamin O25-ofkrg acid 1 EACH tablet 1 ea PO DAILY RF: 0 Co Q-10 (with Vit E) 1 EACH capsule 1 ea PO DAILY RF: 0 nitroglycerin [Nitrostat] 0.4 MG tablet, sublingual 0.4 mg Sublingual Q5 MIN PRN X3 PRNQty: 60 RF: 0 aspirin 81 MG tablet,chewable 81 mg PO DAILY Qty: 30 RF: 0 cholecalciferol (vitamin D3) 1,000 UNIT capsule 1,000 unit PO DAILY RF: 0 omeprazole 40 mg capsule,delayed release(DR/EC) 40 mg PO DAILY Qty: 90 RF: 4 atorvastatin [Lipitor] 40 mg tablet 40 mg PO QPM Qty: 90 RF: 4 metoprolol succinate 50 mg tablet extended release 24 hr 50 mg PO BID Qty: 180 RF: 3 furosemide 40 mg tablet 40 mg PO DAILY Qty: 60 RF: 6 Eliquis 5 mg tablet 5 mg PO BID Qty: 180 RF: 4 spironolactone 25 mg tablet 12.5 mg PO DAILY Qty: 45 RF: 3 Discharge Instructions Additional Instructions: CT imaging of your neck reveals a 4.8 cm heterogeneous cystic and solid mass in the right side of your neck that is highly suspicious for neoplasm. Multiloculated abscesses also potential but less likely. There are also enlarged lymph nodes on both sides of the neck, right worse than left. You need to follow-up with the research tech this week. I have spoken with [facility] research tech and Dr. Yañez reviewed your CT imaging and recommends follow-up tomorrow in their clinic. They will be contacting you to arrange appointment tomorrow morning. They recommend that you maintain a liquid diet after midnight tonight. [facility] ENT number is [phone]. You were given a dose of antibiotic called Augmentin here in the emergency department. You did continue to take this as prescribed. Your next dose is tonight. Please contact your primary care physician to arrange follow-up asv well. Return to the ER immediately for any worsening or new concerning symptoms including difficulty swallowing, difficulty with secretions, increasing pain and pain with turning her head to the left, pain or swelling underneath your tongue, or any other new or concerning symptoms. 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 Airway intact. Concerned about neoplastic process including potential recurrence/metastasis of regional squamous cell carcinoma versus lymphoma versus less likely infectious process versus other. Will obtain CT neck and will also include chest given extension of discomfort inferiorly and potential for metastatic disease. 1310 --CT of the neck was interpreted by radiology: IMPRESSION: 1. 4.8 cm heterogeneous cystic and solid mass in the right side of the neck highly suspicious for primary head and neck neoplasm. Multiloculated abscess is also consideration but less likely. 2. Enlarged lymph nodes on both sides of the neck, right worse than left. 3. 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 CT of the chest interpreted radiology: No acute findings in the chest. Cardiomegaly and vascular calcifications. I have pushed images to [facility] and have called to request consultation with research tech. 3109 --I spoke with Dr. Webb, ENT resident at [facility] and discussed ED presentation course including diagnostics, she will be discussion case with attending and will call back. HPI General Mode of arrival: ambulatory. Date/Time Provider Initiated Documentation: 12/21/20 10:50. Limitations to Documentation: no limitations. Information obtained by: patient. HPI Narrative: 80-year-old male cigar smoker with history of squamous cell carcinoma right synagogue, coronary artery disease, multiple medical problems, presents with chief complaint of neck swelling. Patient notes he had some mild discomfort in his right neck for a few days. Today woke up with significant swelling and worsening discomfort of the right neck. Discomfort is mild with moderate swelling. No modifiers. No associated fever. No ear pain. No headache. Of note, patient was seen in the emergency department about 3 weeks ago for febrile illness, had blood cultures with 1/4 blood cultures positive for staph epididymis, thought to be contaminant, symptoms resolved with course of Keflex. Related Data Home Medications Medication Instructions Recorded Confirmed vitamin [id number] acid 1 ea PO DAILY 08/23/12 12/21/20 Co Q-10 (with Vit E) 1 ea PO DAILY 11/06/12 12/21/20 nitroglycerin [Nitrostat] 0.4 mg SUBLINGUAL Q5 MIN PRN X3 08/18/16 12/21/20 PRN #60 tab aspirin 81 mg PO DAILY #30 tab-cap 08/03/17 12/21/20 cholecalciferol (vitamin D3) 1,000 unit PO DAILY 10/05/17 12/21/20 omeprazole 40 mg capsule,delayed 40 mg PO DAILY #90 tab-cap 03/07/20 12/21/20 release vitamins A,C,G-xkvy-uqseti 14,320 1 cap PO BID 03/20/20 12/21/20 unit-226 mg-200 unit capsule atorvastatin 40 mg tablet 40 mg PO QPM #90 cap 05/13/20 12/21/20 furosemide 40 mg tablet 40 mg PO DAILY #60 tab 05/13/20 12/21/20 metoprolol succinate 50 mg 50 mg PO BID #180 tab 05/13/20 12/21/20 tablet,extended release 24 hr apixaban 5 mg tablet 5 mg PO BID #180 tab-cap 06/16/20 12/21/20 magnesium oxide 400 mg (241.3 mg 400 mg PO BID tab 11/05/20 12/21/20 magnesium) tablet spironolactone 25 mg tablet 12.5 mg PO DAILY #45 tab-cap 12/08/20 12/21/20 amoxicillin-pot clavulanate 1 tab PO BID #19 tab 12/21/20 [Augmentin] Previous Rx's Medication Instructions Recorded aspirin 81 mg PO DAILY #30 tab-cap 08/03/17 omeprazole 40 mg capsule,delayed 40 mg PO DAILY #90 tab-cap 03/07/20 release atorvastatin 40 mg tablet 40 mg PO QPM #90 cap 05/13/20 furosemide 40 mg tablet 40 mg PO DAILY #60 tab 05/13/20 metoprolol succinate 50 mg 50 mg PO BID #180 tab 05/13/20 tablet,extended release 24 hr apixaban 5 mg tablet 5 mg PO BID #180 tab-cap 06/16/20 spironolactone 25 mg tablet 12.5 mg PO DAILY #45 tab-cap 12/08/20 amoxicillin-pot clavulanate 1 tab PO BID #19 tab 12/21/20 [Augmentin] Allergies Allergy/AdvReac Type Severity Reaction Status Date / Time ibuprofen [From Advil] Allergy Severe RESPIRATORY Verified 12/21/20 10:49 DISTRESS General Stated Complaint: FacialProb CASTRO: 3 Review of Systems All systems reviewed & are unremarkable except as noted in HPI and below Constitutional Constitutional: Denies body ache(s), Denies fever(s) and Denies headache(s) ENT Ears, Nose, Mouth, and Throat: Reports as per HPI, Denies change in voice, Denies dental pain, Denies headache(s), Reports neck mass and Denies sinus pressure Neurologic Neurologic: Denies headache(s) [facility] Medical History Benign paroxysmal positional vertigo (01/10/18) Bilateral shoulder pain CAD (coronary artery disease) Carpal tunnel syndrome Cataract Double vision with both eyes open Essential hypertension Fever Heart disease History of alcoholism Hypercholesterolemia Status post percutaneous transluminal coronary angioplasty (~2008) stent placement Surgical History Colonoscopy - IV Sedation (09/06/12) DR. MOORE; POOR PREP, TUBULAR ADENOMA Colonoscopy - MAC (01/20/18) EGD - MAC (03/21/15) DR.TERRY HERNANDEZ History of esophagogastroduodenoscopy (05/05/15) History of umbilical hernia repair Repair of umbilical hernia (~2004) Status post coronary artery stent placement 5 Status post hip replacement x2 Stent placement (~2005) X 3 LAD; LCX Total replacement of hip (~2009) Family History Mother , AGE 85 Breast cancer Father , AGE 61 Stroke Brother , AGE 66 Essential hypertension Heart disease Hyperlipidemia Social History Smoking/Tobacco Use Status: Current every day Tobacco Type: cigars Per week: 25 Tobacco: How many years used: 50 Smoking risk assessment performed?: Yes Alcohol Intake: current Alcohol Intake frequency: 0-2 drinks per day Alcohol type: wine Drug use: Never Substance use type: does not use Caregiver/Support person: No Household members: spouse Communication Needs: None Pets and animals: No Current gender identity: male What is your relationship status?: How often do you talk on the phone with friends or family?: decline to answer How often do you get together with friends or relatives?: decline to answer How often do you attend cheondoism or hoahaoism services?: decline to answer Do you belong to any clubs or organized social groups?: decline to answer Panel score (0-1 are the most socially isolated patients): 1 What type of physical activity do you participate in: none Duration: 15-30 minutes/day Frequency: 5-6 times per week Debra/Sabianist: Islam Special debra needs: No Do you feel safe at home: Yes Do you feel safe in your relationship?: Yes Exam Const General: cooperative and no acute distress HENIA Head: normocephalic and atraumatic Ears: external ears normal, mastoids normal on the right and EAC abnormal cerumen impaction General nose exam: external nose normal Face and sinus: normal facial exam Mouth: lip normal, tongue normal, salivary ducts normal, moist mucous membranes, no audible dysphonia, no drooling and no muffled voice Teeth and gingiva: caries Throat: posterior oropharynx normal Eyes Conjunctivae: normal conjunctivae Sclera: normal sclerae Neck Neck: trachea midline and other (mass rt neck) Other: tender mass, tender inferior neck and rt upper chest, no erythema or warmth Resp Auscultation: clear to auscultation bilaterally, no rales, no rhonchi and no wheezes Cardio Rate: regular rate and not tachycardic Rhythm: regular rhythm GI Palpation: soft, not firm, no guarding, no masses, not rigid and nontender Skin General skin exam: no rashes or lesions noted Neuro General: patient alert, patient awake, patient oriented x3 and tone normal Psych Appearance: grossly normal Mental Status: mental status grossly normal Course Vital Signs Vital signs: Vital Signs Temperature 36.7 C 12/21/20 10:44 Pulse 63 12/21/20 10:44 Respiratory Rate 17 12/21/20 10:44 Blood Pressure 141/88 H 12/21/20 10:44 Pulse Oximetry 98 12/21/20 10:44 Temperature 36.7 C 12/21/20 10:44 Temperature Source Temporal Artery Scan 12/21/20 10:44 Pulse 63 12/21/20 10:44 Respiratory Rate 17 12/21/20 10:44 Respiratory Effort Non-Labored 12/21/20 10:47 Blood Pressure 141/88 H 12/21/20 10:44 Pulse Oximetry 98 12/21/20 10:44 Oxygen Delivery Method Room Air 12/21/20 10:44 Oxygen Flow Rate 0 12/21/20 10:44 Pain Level 3 12/21/20 10:53
[2020-12-21 11:27] LABS: Abs Immature Grans 0.02 10^3/uL (0.0-0.06); Absolute Basophil Count 0.05 10^3/uL (0.0-0.2); Absolute Eosinophil Count 0.17 10^3/uL (0.0-0.7); Absolute Lymphocyte Count 2.22 10^3/uL (1.2-3.4); Absolute Monocyte Count 0.86 10^3/uL (0.1-0.8); Absolute Neutrophil Count 3.67 10^3/uL (1.2-6.7); Basophils % 0.7; Eosinophils % 2.4; HCT 44.2 % (40.0-50.0); HGB 14.7 g/dL (13.5-17.5); Immature Grans % 0.3; Lymphocytes % 31.8; MCH 30.9 pg (27.0-33.0); MCHC 33.3 % (32.0-36.0); MCV 93.1 fL (80-95); MPV 9.5 fL (8.0-11.0); Monocytes % 12.3; Neutrophils % 52.5; Nucleated RBC 0 %; Platelet Count 143 10^3/uL (130-400); RBC 4.75 10^6/uL (4.36-5.78); RDW 13.6 % (11.8-14.1); RDW-SD 46.6 fL; WBC 6.99 10^3/uL (4.4-10.8)
[2020-12-21 11:48] LABS: ALT 29 U/L (16-63); AST 20 U/L (15-37); Albumin 3.7 g/dL (3.4-5.0); Alkaline Phosphatase 83 U/L (46-116); Anion Gap 9.2 mmol/L (3-11); BUN 14 mg/dL (7-18); Bilirubin, Total 0.8 mg/dL (0.2-1.0); CO2 27.8 mmol/L (21.0-32.0); CREATININE 0.9 mg/dL (0.70-1.30); Calcium 8.8 mg/dL (8.5-10.1); Chloride 106 mmol/L (98-107); Glucose 106 mg/dL (74-106); Potassium 4.3 mmol/L (3.5-5.1); Sodium 143 mmol/L (136-145); TSH (W/Ref FT4) 0.81 uIU/mL (0.36-3.74); Total Protein 7.1 g/dL (6.4-8.2)
[2020-12-21] MEDS: Omnipaque 350 MG/ML 100 ML BTL IV (11:59)
[2020-12-21] MEDS: Normal Saline - Diluent 50 ML VIAL IV (12:00)
[2020-12-21] MEDS: Normal Saline Flush 10 ML SYR IVP (12:01)
[2020-12-21 12:18] VITALS: BP 125/89; PULSE 78; RESP 18; TEMP 36.7; O2SAT 96
--- NOTE | 2020-12-21 12:38 | DI.VRAD_ITS ---
PROCEDURE INFORMATION: Exam: CT Neck With Contrast Exam date and time: 12/21/2020 11:08 AM Age: 80 years old Clinical indication: Other: Right neck swelling and pain 1 day, smoker; Prior surgery; Surgery date: 6+ months; Surgery type: Stent x5 TECHNIQUE: Imaging protocol: Computed tomography images of the neck with contrast. Radiation optimization: All CT scans at this facility use at least one of these dose optimization techniques: automated exposure control; mA and/or kV adjustment per patient size (includes targeted exams where dose is matched to clinical indication); or iterative reconstruction. Contrast material: OMNIPAQUE 100; Contrast volume: 100 ml; Contrast route: INTRAVENOUS (IV); COMPARISON: CT HEAD WO/W 11/11/2020 4:01 PM FINDINGS: Nasopharynx: Unremarkable. Oropharynx: Unremarkable. No significant tonsillar enlargement. Hypopharynx: Unremarkable. Larynx: Unremarkable. Normal epiglottis. Retropharyngeal space: Unremarkable. Submandibular/Parotid glands: Normal. Glands are normal in size. Thyroid: Normal. No enlarged or calcified nodules. Lymph nodes: Enlarged lymph nodes on the on both sides of the neck, right greater than left, consistent with metastatic disease. Trachea: Visualized trachea is unremarkable. Lungs: See Soft tissues finding. 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 Moderate degenerative arthritis in the cervical facets, especially on the right. Vasculature: Bilateral carotid artery calcifications at the bifurcation without evidence of stenosis. Soft tissues: Heterogeneous mass in the right side of the neck, deep to the sternocleidomastoid muscle and superficial to the right carotid bifurcation measuring approximately 4.2 by 2.7 by 4.8 cm in AP, transverse, and craniocaudad dimension. This has irregular lobulated margins and an appearance most consistent with a malignancy. This could be a primary neoplasm or conglomerate necrotic lymph node. The lack of findings suspicious for neoplasm in the chest suggests the this is likely a primary head and neck neoplasm. Differential considerations could include complex abscess formation but overall the appearance is most suggestive of a necrotic neoplasm. Correlate with the clinical scenario. IMPRESSION: 1. 4.8 cm heterogeneous cystic and solid mass in the right side of the neck highly suspicious for primary head and neck neoplasm. Multiloculated abscess is also consideration but less likely. 2. Enlarged lymph nodes on both sides of the neck, right worse than left. 3. 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 THIS REPORT CONTAINS FINDINGS THAT MAY BE CRITICAL TO PATIENT CARE. The findings were verbally communicated via telephone conference with Dena Alfonso RN at 12:37 PM EDT on 12/21/2020. The findings were acknowledged and understood. PROCEDURE INFORMATION: Exam: CT Chest With Contrast; Diagnostic Exam date and time: 12/21/2020 11:08 AM Age: 80 years old Clinical indication: Other: Right neck swelling and pain 1 day, smoker; Prior surgery; Surgery date: 6+ months; Surgery type: Stent x5 TECHNIQUE: Imaging protocol: Diagnostic computed tomography of the chest with contrast. Contrast material: OMNIPAQUE 100; Contrast volume: 100 ml; Contrast route: INTRAVENOUS (IV); COMPARISON: CT HEAD WO/W 11/11/2020 4:01 PM FINDINGS: Lungs: Dependent atelectasis in the posterior lungs, right worse than left. Pleural spaces: Unremarkable. No pneumothorax. No pleural effusion. Heart: Vascular calcifications including coronary artery calcifications. Mild cardiac enlargement. Aorta: Ascending thoracic aortic aneurysm measuring approximately 4.1 x 4.1 cm AP and transverse dimension Lymph nodes: Calcified left hilar lymph nodes. Gallbladder and bile ducts: Cholecystectomy. Bones/joints: Degenerative arthritis in the shoulders and spine. Old left posterior rib fractures. Ankylosis of most of the thoracic vertebral bodies from prominent anterior syndesmophytes. Soft tissues: Unremarkable. IMPRESSION: 1. No acute findings in the chest 2. Cardiomegaly and vascular calcifications. Dictated and Authenticated by: Kimberli Escobedo MD. Ordering:THEO Henderson MD
[2020-12-21] MEDS: Amoxicillin 875/Clav. 125 TAB PO (14:39)
[2020-12-21 14:50] VITALS: BP 131/86; PULSE 83; RESP 18; TEMP 36.3; O2SAT 97
== END 2020-12-21 14:50 | disposition home or self-care (01) ==
PROVIDERS: Emergency Provider Student in an Organized Health Care Education/Training Program; PCP Emergency Medicine
DX: R22.1 Localized swelling, mass and lump, neck (principal); F17.290 Nicotine dependence, other tobacco product, uncomplicated; R59.0 Localized enlarged lymph nodes; E78.00 Pure hypercholesterolemia, unspecified
CPT/HCPCS: 70491; 80053; 99285; 71260; 84443; 85025; 99284; J3490

== ENCOUNTER 2021-01-15 17:54 | Outpatient (REF) | payer MEDICARE, OTHER, SELFPAY ==
[2021-01-15 18:06] LABS: BUN 19 mg/dL (7-18); CREATININE 0.9 mg/dL (0.70-1.30); Calcium 9.4 mg/dL (8.5-10.1); Chloride 105 mmol/L (98-107); Glucose 108 mg/dL (74-106); Potassium 4.6 mmol/L (3.5-5.1); Sodium 143 mmol/L (136-145)
== END 2021-01-15 17:55 | disposition home or self-care (01) ==
LOC: LBN 17:54
PROVIDERS: PCP Emergency Medicine; Visit Provider Emergency Medicine
DX: I10 Essential (primary) hypertension (principal)
CPT/HCPCS: 80048

== ENCOUNTER 2021-01-20 05:07 | Outpatient (CLI) | payer MEDICARE, OTHER, SELFPAY ==
[2021-01-20 10:11] LABS: CREATININE 0.9 mg/dL (0.70-1.30)
== END 2021-01-20 05:08 | disposition home or self-care (01) ==
LOC: LBO 05:07
PROVIDERS: PCP Emergency Medicine; Visit Provider Preventive Medicine Undersea and Hyperbaric Medicine
DX: C44.92 Squamous cell carcinoma of skin, unspecified (principal)
CPT/HCPCS: 36415; 82565

== ENCOUNTER 2021-01-26 16:05 | Outpatient (CLI) | payer MEDICARE, OTHER, SELFPAY ==
[2021-01-26 15:44] LABS: Abs Immature Grans 0.04 10^3/uL (0.0-0.06); Absolute Basophil Count 0.06 10^3/uL (0.0-0.2); Absolute Lymphocyte Count 2.61 10^3/uL (1.2-3.4); Absolute Monocyte Count 1.09 10^3/uL (0.1-0.8); Basophils % 0.6; Eosinophils % 2.1; HCT 47.5 % (40.0-50.0); HGB 15.8 g/dL (13.5-17.5); Immature Grans % 0.4; Lymphocytes % 27.8; MCH 30.9 pg (27.0-33.0); MCHC 33.3 % (32.0-36.0); MCV 92.8 fL (80-95); MPV 9.2 fL (8.0-11.0); Monocytes % 11.6; Neutrophils % 57.5; Nucleated RBC 0 %; Platelet Count 190 10^3/uL (130-400); RBC 5.12 10^6/uL (4.36-5.78); RDW 13.7 % (11.8-14.1); RDW-SD 46.5 fL
[2021-01-26 15:57] LABS: ALT 34 U/L (16-63); AST 26 U/L (15-37); Albumin 3.6 g/dL (3.4-5.0); Alkaline Phosphatase 97 U/L (46-116); Anion Gap 7.1 mmol/L (3-11); BUN 22 mg/dL (7-18); Bilirubin, Total 0.6 mg/dL (0.2-1.0); CO2 28.9 mmol/L (21.0-32.0); CREATININE 1.1 mg/dL (0.70-1.30); Calcium 8.6 mg/dL (8.5-10.1); Chloride 106 mmol/L (98-107); Glucose 110 mg/dL (74-106); Potassium 4.3 mmol/L (3.5-5.1); Sodium 142 mmol/L (136-145); Total Protein 7.4 g/dL (6.4-8.2)
== END 2021-01-26 16:06 | disposition home or self-care (01) ==
LOC: LBO 01-29 16:05
PROVIDERS: PCP Emergency Medicine; Visit Provider Internal Medicine Hematology & Oncology
DX: Z85.828 Personal history of other malignant neoplasm of skin (principal)
CPT/HCPCS: 36415; 80053; 85025

== ENCOUNTER 2021-02-01 12:36 | Emergency (ER) | payer MEDICARE, OTHER, SELFPAY ==
[2021-02-01 12:43] VITALS: BP 166/87; PULSE 75; RESP 18; TEMP 36.5; O2SAT 97
--- NOTE | 2021-02-01 12:45 | DI.CT_ITS ---
Exam(s) CT NECK W EXAM: CT NECK W CLINICAL HISTORY: known right neck mass, increased swelling. TECHNIQUE: Imaging Protocol: Axial computed tomography images with coronal and sagittal reformatted images were created and reviewed CONTRAST MATERIAL: Intravenous: Omnipaque 350 Contrast volume:100 ml Contrast route:IV - Oral: no COMPARISON: CT CT NECK CHEST W from 12/21/2020 FINDINGS: Parotids/submandibular/thyroid gland: Normal. Carotids: Within normal limits. Jugular: Mass abuts right jugular vein which is either severely compressed or occluded. Soft tissues: There has been marked interval increase in size of the previously noted mass deep to th e right sternocleidomastoid muscle appear, now measuring 5.1 x 4.8 x 4.4 cm. There are adjacent smal ler masses. The amount of adenopathy has concern severely increased when compared with the previous exam extending cyst inferiorly to the supraclavicular level. The largest noted lateral to the right thyroid measures 2.3 x 4 cm. The floor the mouth is unremarkable. The epiglottis and vocal cords ar e within normal limits. Images through both lung apices are unremarkable. Bones: So degenerative changes. No lytic or blastic lesions. IMPRESSION: Marked interval increase in size right-sided neck mass as well as significant interval increase in ex tensive right-sided cervical adenopathy. There is either is severe compression of the right jugular versus occlusion. RADIATION DOSE DELIVERED: 502.29mGy.cm Total DLP DATA REPOSITORY: All CT scans at this facility are submitted to the National Radiology Data Registry (NRDR) Dose Index Registry (DIR) with the [employer] (A[employer]). RADIATION OPTIMIZATION: All CT scans at this facility use at least one of these dose optimization te chniques: automated exposure control; mA and/or kV adjustment per patient size (includes targeted exa ms where dose is matched to clinical indication); or iterative reconstruction.
--- NOTE | 2021-02-01 12:54 | ED.GENADUL_ITS ---
Discharge Plan Disposition Patient Disposition: HOME Condition: Stable Discharge Details Clinical Impression: Neck swelling, Mass of neck Primary Care Provider: Rocael Maurer ED Provider: Lul Mathews Home Meds and New Rx's Prescriptions: Continued magnesium oxide 400 mg (241.3 mg magnesium) tablet 400 mg PO BID RF: 0 PreserVision AREDS [id number] capsule 1 cap PO BID RF: 0 vitamin E90-xvxew acid 1 EACH tablet 1 ea PO DAILY RF: 0 Co Q-10 (with Vit E) 1 EACH capsule 1 ea PO DAILY RF: 0 nitroglycerin [Nitrostat] 0.4 MG tablet, sublingual 0.4 mg Sublingual Q5 MIN PRN X3 PRNQty: 60 RF: 0 aspirin 81 MG tablet,chewable 81 mg PO DAILY Qty: 30 RF: 0 cholecalciferol (vitamin D3) 1,000 UNIT capsule 1,000 unit PO DAILY RF: 0 omeprazole 40 mg capsule,delayed release(DR/EC) 40 mg PO DAILY Qty: 90 RF: 4 atorvastatin [Lipitor] 40 mg tablet 40 mg PO QPM Qty: 90 RF: 4 metoprolol succinate 50 mg tablet extended release 24 hr 50 mg PO BID Qty: 180 RF: 3 furosemide 40 mg tablet 40 mg PO DAILY Qty: 60 RF: 6 Eliquis 5 mg tablet 5 mg PO BID Qty: 180 RF: 4 spironolactone 25 mg tablet 12.5 mg PO DAILY Qty: 45 RF: 3 amoxicillin-pot clavulanate [Augmentin] 875-125 mg tablet 1 tab PO BID Qty: 19 RF: 0 acetaminophen 500 mg Capsule 1,000 mg PO Q6H RF: 0 Discharge Instructions Additional Instructions: the cat scan of you neck showed the mass has had some enlargement and swelling around it follow up with your oncologist and primary care provider if you feel more ill, have difficulty breathing or difficulty swallowing liquids return to the emergency department Medical Decision Making 80 yo male with hx of afib, htn, cad, 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 He denies fevers, chills, dyspnea or difficulty swallowing. He states his mass has been tender for months and is unchanged. He is speaking clearly and swallowing normally on exam, normal posterior pharynx, has palpable mass on right mid neck and I do not appreciate on exam significant neck swelling. Given his symptoms will obtain ct neck to evaluate for new masses. No symptoms to suggest infectious etiology such as rpa or epiglotitis and has no dental pain and doubt ludwigs. pt stable ambulating without assistance and no dyspnea. xray read as possible atelectasis vs infiltrates, patient denies any cough or fever or dyspnea so doubt pneumonia at the present time, xray was done to evaluate for possible upper lung masses. CT shows enlgargement of malignancy in the neck, adenopathy and edema. No airway occlusion. Discussed results with patient. He is stable and feels well and is starting treatment in 2 days. He is going to follow up with his oncologist and pcp, return precautions given Differential Diagnosis Differential Diagnosis: neck mass, metastases Medical Records Medical records reviewed: Yes I reviewed the patient's medical records. Imaging Data Radiologic Study: Attestation: I personally reviewed and interpreted this imaging study as follows: Radiologist's impression: IMPRESSION: Patchy opacities in the left base may represent atelectasis or pneumonia.. Radiologic Study #2: Attestation: I personally reviewed and interpreted this imaging study as follows: Imaging: CT Scan Radiologist's impression: IMPRESSION: Marked enlargement previously seen right-sided cystic mass, presumed malignancy. There is associated adenopathy. There is right carotid space edema with edema at the prevertebral level, likely lymphangitic in nature. Upper jugular vein occlusion not excludable. Lab Data Lab results reviewed: Yes I reviewed the patient's lab results. HPI General Mode of arrival: ambulatory . Date/Time Provider Initiated Documentation: 02/01/21 12:42 . Limitations to Documentation: no limitations . Information obtained by: patient . History of Present Illness 80 year old M presents to the emergency department with the chief complaint of neck swelling, described as mild, and it has been constant. No relieving factors improve symptom(s), No exacerbating factors reported . Patient notes no other symptoms.. Related Data Home Medications Medication Instructions Recorded Confirmed vitamin O15-pohjl acid 1 ea PO DAILY 08/23/12 02/01/21 Co Q-10 (with Vit E) 1 ea PO DAILY 11/06/12 02/01/21 nitroglycerin [Nitrostat] 0.4 mg SUBLINGUAL Q5 MIN PRN X3 08/18/16 02/01/21 PRN #60 tab aspirin 81 mg PO DAILY #30 tab-cap 08/03/17 02/01/21 cholecalciferol (vitamin D3) 1,000 unit PO DAILY 10/05/17 02/01/21 omeprazole 40 mg capsule,delayed 40 mg PO DAILY #90 tab-cap 03/07/20 02/01/21 release vitamins A,C,X-tois-pasznf 14,320 1 cap PO BID 03/20/20 02/01/21 unit-226 mg-200 unit capsule atorvastatin 40 mg tablet 40 mg PO QPM #90 cap 05/13/20 02/01/21 furosemide 40 mg tablet 40 mg PO DAILY #60 tab 05/13/20 02/01/21 metoprolol succinate 50 mg 50 mg PO BID #180 tab 05/13/20 02/01/21 tablet,extended release 24 hr apixaban 5 mg tablet 5 mg PO BID #180 tab-cap 06/16/20 02/01/21 magnesium oxide 400 mg (241.3 mg 400 mg PO BID tab 11/05/20 02/01/21 magnesium) tablet spironolactone 25 mg tablet 12.5 mg PO DAILY #45 tab-cap 12/08/20 02/01/21 amoxicillin-pot clavulanate 1 tab PO BID #19 tab 12/21/20 02/01/21 [Augmentin] acetaminophen 1,000 mg PO Q6H 02/01/21 02/01/21 Previous Rx's Medication Instructions Recorded aspirin 81 mg PO DAILY #30 tab-cap 08/03/17 omeprazole 40 mg capsule,delayed 40 mg PO DAILY #90 tab-cap 03/07/20 release atorvastatin 40 mg tablet 40 mg PO QPM #90 cap 05/13/20 furosemide 40 mg tablet 40 mg PO DAILY #60 tab 05/13/20 metoprolol succinate 50 mg 50 mg PO BID #180 tab 05/13/20 tablet,extended release 24 hr apixaban 5 mg tablet 5 mg PO BID #180 tab-cap 06/16/20 spironolactone 25 mg tablet 12.5 mg PO DAILY #45 tab-cap 12/08/20 amoxicillin-pot clavulanate 1 tab PO BID #19 tab 12/21/20 [Augmentin] Allergies Allergy/AdvReac Type Severity Reaction Status Date / Time ibuprofen [From Advil] Allergy Severe RESPIRATORY Verified 02/01/21 12:50 DISTRESS General Stated Complaint: FacialProb CASTRO: 2 Review of Systems All systems reviewed & are unremarkable except as noted in HPI and below Constitutional Constitutional: Denies chills, Denies fever(s) and Denies weakness Cardiovascular Cardiovascular: Denies chest pain and Denies dyspnea Respiratory Respiratory: Denies cough and Denies dyspnea Gastrointestinal Gastrointestinal: Denies abdominal pain, Denies nausea and Denies vomiting Musculoskeletal Musculoskeletal: Denies joint swelling Neurologic Neurologic: Denies weakness [facility] Medical History (Updated 02/01/21 @ 14:57 by Lul Mathews MD) Benign paroxysmal positional vertigo (01/10/18) Bilateral shoulder pain CAD (coronary artery disease) Carpal tunnel syndrome Cataract Double vision with both eyes open Essential hypertension Fever Heart disease History of alcoholism Hypercholesterolemia Metastatic squamous cell carcinoma Metastatic squamous cell carcinoma Status post percutaneous transluminal coronary angioplasty (~2008) stent placement Surgical History Colonoscopy - IV Sedation (09/06/12) DR. MOORE; POOR PREP, TUBULAR ADENOMA Colonoscopy - MAC (01/20/18) EGD - MAC (03/21/15) DR.TERRY HERNANDEZ History of esophagogastroduodenoscopy (05/05/15) History of umbilical hernia repair Repair of umbilical hernia (~2004) Status post coronary artery stent placement 5 Status post hip replacement x2 Stent placement (~2005) X 3 LAD; LCX Total replacement of hip (~2009) Family History Mother , AGE 85 Breast cancer Father , AGE 61 Stroke Brother , AGE 66 Essential hypertension Heart disease Hyperlipidemia Social History Smoking/Tobacco Use Status: Current every day Tobacco Type: cigars Per week: 25 Tobacco: How many years used: 50 Smoking risk assessment performed?: Yes Alcohol Intake: current Alcohol Intake frequency: 0-2 drinks per day Alcohol type: wine Drug use: Never Substance use type: does not use Caregiver/Support person: No Household members: spouse Communication Needs: None Pets and animals: No Current gender identity: male What is your relationship status?: How often do you talk on the phone with friends or family?: decline to answer How often do you get together with friends or relatives?: decline to answer How often do you attend latter day or lutheran services?: decline to answer Do you belong to any clubs or organized social groups?: decline to answer Panel score (0-1 are the most socially isolated patients): 1 What type of physical activity do you participate in: none Duration: 15-30 minutes/day Frequency: 5-6 times per week Debra/Buddhist: Lutheran Special debra needs: No Do you feel safe at home: Yes Do you feel safe in your relationship?: Yes Exam Const General: no acute distress Orientation: alert HENMT Head: normal to inspection Ears: external ears normal General nose exam: external nose normal Mouth: moist mucous membranes Eyes General: appearance normal, both eyes and all related structures Neck Neck: full ROM and no lymphadenopathy Resp Effort & Inspection: normal respiratory effort and able to speak in complete sentences Cardio Rate: regular rate Skin General skin exam: no rashes or lesions noted Neuro General: patient alert and patient oriented x3 Extrem General: normal to inspection Psych Mental Status: mental status grossly normal Course Vital Signs Vital signs: Vital Signs Temperature 36.5 C 02/01/21 12:43 Pulse 75 02/01/21 12:43 Respiratory Rate 18 02/01/21 12:43 Blood Pressure 166/87 H 02/01/21 12:43 Pulse Oximetry 97 02/01/21 12:43 Temperature 36.5 C 02/01/21 12:43 Temperature Source Temporal Artery Scan 02/01/21 12:43 Pulse 75 02/01/21 12:43 Respiratory Rate 18 02/01/21 12:43 Blood Pressure 166/87 H 02/01/21 12:43 Pulse Oximetry 97 02/01/21 12:43 Oxygen Delivery Method Room Air 02/01/21 12:43 Oxygen Flow Rate 0 02/01/21 12:43 Pain Level 8 02/01/21 12:43
--- NOTE | 2021-02-01 13:15 | DI.RAD_ITS ---
Exam(s) XR CHEST 2V PA LATERAL EXAM: XR CHEST 2V PA LATERAL CLINICAL HISTORY: neck swelling TECHNIQUE: 2D digital imaging was performed. COMPARISON: CR,XR XR PORTABLE CHEST AP from 11/25/[address] NECK CHEST W from 12/21/[address] NECK CHEST W from 12/21/2020 FINDINGS: HEART: Mildly enlarged. Aorta mildly ectatic. PULMONARY VASCULATURE: Normal. LUNGS: Clear. Left lung base partially obscured by prominent pericardial fat PLEURAL SPACE: No pleural effusion or pneumothorax. BONE:Unremarkable for age. IMPRESSION: No acute abnormality. DATA REPOSITORY: RADIATION DOSE DELIVERED:
[2021-02-01 13:38] LABS: Abs Immature Grans 0.02 10^3/uL (0.0-0.06); Absolute Basophil Count 0.04 10^3/uL (0.0-0.2); Absolute Eosinophil Count 0.16 10^3/uL (0.0-0.7); Absolute Lymphocyte Count 1.72 10^3/uL (1.2-3.4); Absolute Monocyte Count 0.68 10^3/uL (0.1-0.8); Absolute Neutrophil Count 4.34 10^3/uL (1.2-6.7); Basophils % 0.6; Eosinophils % 2.3; HCT 43.7 % (40.0-50.0); HGB 14.4 g/dL (13.5-17.5); Immature Grans % 0.3; Lymphocytes % 24.7; MCH 30.7 pg (27.0-33.0); MCV 93.2 fL (80-95); MPV 9.1 fL (8.0-11.0); Monocytes % 9.8; Neutrophils % 62.3; Nucleated RBC 0 %; Platelet Count 162 10^3/uL (130-400); RBC 4.69 10^6/uL (4.36-5.78); RDW-SD 47.5 fL; WBC 6.96 10^3/uL (4.4-10.8)
[2021-02-01 13:47] LABS: Magnesium 1.6 mg/dL (1.8-2.4)
[2021-02-01 13:51] LABS: ALT 31 U/L (16-63); AST 19 U/L (15-37); Albumin 3.6 g/dL (3.4-5.0); Alkaline Phosphatase 87 U/L (46-116); Anion Gap 6.3 mmol/L (3-11); BUN 15 mg/dL (7-18); Bilirubin, Total 0.6 mg/dL (0.2-1.0); CO2 28.7 mmol/L (21.0-32.0); CREATININE 0.9 mg/dL (0.70-1.30); Calcium 8.5 mg/dL (8.5-10.1); Chloride 106 mmol/L (98-107); Glucose 106 mg/dL (74-106); Potassium 4.1 mmol/L (3.5-5.1); Sodium 141 mmol/L (136-145); Total Protein 7.3 g/dL (6.4-8.2)
[2021-02-01] MEDS: Omnipaque 350 MG/ML 100 ML BTL IV (13:59)
--- NOTE | 2021-02-01 14:03 | DI.VRAD_ITS ---
PROCEDURE INFORMATION: Exam: XR Chest Exam date and time: 02/01/2021 1:25 PM Age: 80 years old Clinical indication: Other: Neck swelling TECHNIQUE: Imaging protocol: XR of the chest. Views: 2 views. COMPARISON: CT NECK CHEST W 12/21/2020 11:45 AM FINDINGS: Lungs: Patchy opacities in the left base may represent atelectasis or pneumonia.. Pleural spaces: Unremarkable. No pleural effusion. No pneumothorax. Heart/Mediastinum: Unremarkable. No cardiomegaly. Bones/joints: Unremarkable. IMPRESSION: Patchy opacities in the left base may represent atelectasis or pneumonia.. Dictated and Authenticated by: Ignacio Soares MD. Ordering:BAILEE Mccarty MD
[2021-02-01] MEDS: Dexamethasone 10 MG/ML VIAL IVP (14:05)
[2021-02-01 14:24] LABS: INR 1.1 (0.9-1.1); PTT Activated 25.1 sec (21.0-27.5); Prothrombin Time 11.1 sec (9.3-11.0)
[2021-02-01] MEDS: Acetaminophen 500 MG TAB 1000 MG PO (14:29)
--- NOTE | 2021-02-01 14:35 | DI.VRAD_ITS ---
PROCEDURE INFORMATION: Exam: CT Neck With Contrast Exam date and time: 02/01/2021 12:54 PM Age: 80 years old Clinical indication: Other: Known right neck mass, increased swelling TECHNIQUE: Imaging protocol: Computed tomography images of the neck with contrast. Contrast material: OMNIPAQUE 350; Contrast volume: 100 ml; Contrast route: INTRAVENOUS (IV); COMPARISON: CT NECK CHEST W 12/21/2020 11:45 AM FINDINGS: Mastoid air cells: Clear. Paranasal sinuses: There is some fluid attenuation in the right carotid space and to a lesser extent at the prevertebral level measuring approximately 4 mm. This is best appreciated from the hypopharyngeal to supraglottic level. Nasopharynx: Unremarkable. Oropharynx: Unremarkable. No significant tonsillar enlargement. Hypopharynx: See Paranasal sinuses finding. Larynx: Unremarkable. Normal epiglottis. Retropharyngeal space: Unremarkable. Submandibular/Parotid glands: Normal. Glands are normal in size. Thyroid: See Mastoid air cells finding. Lymph nodes: See Mastoid air cells finding. Trachea: Visualized trachea is unremarkable. Lungs: Unremarkable as visualized. Bones/joints: Moderate cervical spondylosis again seen. Vasculature: Bilateral calcified carotid plaque noted. The jugular vein is patent from the level of the lesion to the supraclavicular level. Vessel is unopacified at the level above the mass. Soft tissues: A previously seen thick-walled cystic mass in the right neck deep to the sternocleidomastoid has markedly enlarged. It currently measures 5.1 x 4.8 by 4.4 cm. There is significant associated adenopathy extending to the supraclavicular level. A dominant node adjacent to the right lobe of the thyroid measures up to 2 cm. There is some soft tissue stranding associated with the mass in the adjacent periphery. IMPRESSION: Marked enlargement previously seen right-sided cystic mass, presumed malignancy. There is associated adenopathy. There is right carotid space edema with edema at the prevertebral level, likely lymphangitic in nature. Upper jugular vein occlusion not excludable. Dictated and Authenticated by: Fiona Puente MD. Ordering:BAILEE Mccarty MD
== END 2021-02-01 15:00 | disposition home or self-care (01) ==
PROVIDERS: Emergency Provider Emergency Medicine; PCP Emergency Medicine
DX: R22.1 Localized swelling, mass and lump, neck (principal); I48.91 Unspecified atrial fibrillation
CPT/HCPCS: 36415; 70491; 80053; 96374; 99285; 71046; 83735; 85025; 85610; 85730; 99284; J1100; J3490

== ENCOUNTER 2021-02-23 02:40 | Outpatient (RCR) | payer MEDICARE, OTHER, SELFPAY ==
[2021-02-09] MEDS: Normal Saline Flush 10 ML SYR IVP (12:46)
[2021-02-09 13:03] LABS: Abs Immature Grans 0.12 10^3/uL (0.0-0.06); Absolute Basophil Count 0.08 10^3/uL (0.0-0.2); Absolute Eosinophil Count 0.18 10^3/uL (0.0-0.7); Absolute Lymphocyte Count 1.52 10^3/uL (1.2-3.4); Absolute Monocyte Count 0.73 10^3/uL (0.1-0.8); Absolute Neutrophil Count 5.43 10^3/uL (1.2-6.7); Eosinophils % 2.2; HCT 42.5 % (40.0-50.0); HGB 14.4 g/dL (13.5-17.5); Immature Grans % 1.5; Lymphocytes % 18.9; MCH 31.3 pg (27.0-33.0); MCHC 33.9 % (32.0-36.0); MCV 92.4 fL (80-95); MPV 9.5 fL (8.0-11.0); Monocytes % 9.1; Neutrophils % 67.3; Nucleated RBC 0 %; Platelet Count 201 10^3/uL (130-400); RDW 13.9 % (11.8-14.1); RDW-SD 46.8 fL; WBC 8.06 10^3/uL (4.4-10.8)
[2021-02-09 13:17] LABS: ALT 35 U/L (16-63); AST 25 U/L (15-37); Albumin 3.3 g/dL (3.4-5.0); Alkaline Phosphatase 92 U/L (46-116); Anion Gap 7.1 mmol/L (3-11); BUN 15 mg/dL (7-18); CO2 29.9 mmol/L (21.0-32.0); CREATININE 0.9 mg/dL (0.70-1.30); Calcium 8.4 mg/dL (8.5-10.1); Chloride 103 mmol/L (98-107); Glucose 124 mg/dL (74-106); Potassium 3.4 mmol/L (3.5-5.1); Sodium 140 mmol/L (136-145); Total Protein 7.1 g/dL (6.4-8.2)
[2021-02-16] MEDS: Normal Saline Flush 10 ML SYR IVP (08:24)
[2021-02-16 08:47] LABS: Abs Immature Grans 0.03 10^3/uL (0.0-0.06); Absolute Basophil Count 0.03 10^3/uL (0.0-0.2); Absolute Eosinophil Count 0.12 10^3/uL (0.0-0.7); Absolute Lymphocyte Count 0.83 10^3/uL (1.2-3.4); Absolute Neutrophil Count 3.13 10^3/uL (1.2-6.7); Basophils % 0.6; Eosinophils % 2.6; HCT 39.7 % (40.0-50.0); Immature Grans % 0.6; Lymphocytes % 17.9; MCH 30.5 pg (27.0-33.0); MCHC 32.7 % (32.0-36.0); MCV 93.2 fL (80-95); MPV 9.7 fL (8.0-11.0); Monocytes % 10.8; Neutrophils % 67.5; Nucleated RBC 0 %; Platelet Count 218 10^3/uL (130-400); RBC 4.26 10^6/uL (4.36-5.78); RDW 14.4 % (11.8-14.1); RDW-SD 49.1 fL; WBC 4.64 10^3/uL (4.4-10.8)
[2021-02-16 10:38] LABS: ALT 37 U/L (16-63); AST 22 U/L (15-37); Alkaline Phosphatase 102 U/L (46-116); Anion Gap 6.7 mmol/L (3-11); BUN 15 mg/dL (7-18); Bilirubin, Total 0.8 mg/dL (0.2-1.0); CO2 30.3 mmol/L (21.0-32.0); CREATININE 0.8 mg/dL (0.70-1.30); Calcium 8.8 mg/dL (8.5-10.1); Chloride 103 mmol/L (98-107); Glucose 103 mg/dL (74-106); Potassium 4.1 mmol/L (3.5-5.1); Sodium 140 mmol/L (136-145); Total Protein 7.1 g/dL (6.4-8.2)
[2021-02-23 08:38] LABS: Abs Immature Grans 0.05 10^3/uL (0.0-0.06); Absolute Basophil Count 0.02 10^3/uL (0.0-0.2); Absolute Eosinophil Count 0.15 10^3/uL (0.0-0.7); Absolute Lymphocyte Count 0.95 10^3/uL (1.2-3.4); Absolute Monocyte Count 0.69 10^3/uL (0.1-0.8); Absolute Neutrophil Count 3.65 10^3/uL (1.2-6.7); Basophils % 0.4; Eosinophils % 2.7; HCT 40.2 % (40.0-50.0); HGB 13.5 g/dL (13.5-17.5); Immature Grans % 0.9; Lymphocytes % 17.2; MCH 30.9 pg (27.0-33.0); MCHC 33.6 % (32.0-36.0); MPV 9.1 fL (8.0-11.0); Monocytes % 12.5; Neutrophils % 66.3; Nucleated RBC 0 %; Platelet Count 259 10^3/uL (130-400); RBC 4.37 10^6/uL (4.36-5.78); RDW 14.5 % (11.8-14.1); RDW-SD 48.8 fL; WBC 5.51 10^3/uL (4.4-10.8)
[2021-02-23] MEDS: Normal Saline Flush 10 ML SYR IVP (08:50)
[2021-02-23 08:53] LABS: ALT 29 U/L (16-63); AST 17 U/L (15-37); Albumin 3.2 g/dL (3.4-5.0); Alkaline Phosphatase 118 U/L (46-116); Anion Gap 6.5 mmol/L (3-11); BUN 12 mg/dL (7-18); Bilirubin, Total 0.7 mg/dL (0.2-1.0); CO2 31.5 mmol/L (21.0-32.0); CREATININE 0.9 mg/dL (0.70-1.30); Calcium 8.8 mg/dL (8.5-10.1); Chloride 103 mmol/L (98-107); Glucose 89 mg/dL (74-106); Potassium 3.6 mmol/L (3.5-5.1); Sodium 141 mmol/L (136-145); Total Protein 7.6 g/dL (6.4-8.2)
== END 2021-02-26 23:59 | disposition home or self-care (01) ==
LOC: INF 02:40
PROVIDERS: PCP Emergency Medicine; Visit Provider Internal Medicine Hematology & Oncology
DX: Z08 Encounter for follow-up examination after completed treatment for malignant neoplasm (principal); Z85.828 Personal history of other malignant neoplasm of skin
CPT/HCPCS: 36415; 80053; 85025

== ENCOUNTER 2021-03-23 00:52 | Outpatient (RCR) | payer MEDICARE, OTHER, SELFPAY ==
[2021-03-02] MEDS: Normal Saline Flush 10 ML SYR IVP (11:30)
[2021-03-02 11:51] LABS: Abs Immature Grans 0.05 10^3/uL (0.0-0.06); Absolute Basophil Count 0.03 10^3/uL (0.0-0.2); Absolute Lymphocyte Count 0.43 10^3/uL (1.2-3.4); Absolute Monocyte Count 0.46 10^3/uL (0.1-0.8); Absolute Neutrophil Count 3.81 10^3/uL (1.2-6.7); Basophils % 0.6; HCT 36.9 % (40.0-50.0); HGB 12.3 g/dL (13.5-17.5); Lymphocytes % 8.8; MCH 30.6 pg (27.0-33.0); MCHC 33.3 % (32.0-36.0); MCV 91.8 fL (80-95); MPV 9.1 fL (8.0-11.0); Monocytes % 9.4; Neutrophils % 78.2; Nucleated RBC 1 %; Platelet Count 197 10^3/uL (130-400); RBC 4.02 10^6/uL (4.36-5.78); RDW 15.1 % (11.8-14.1); RDW-SD 49.9 fL; WBC 4.88 10^3/uL (4.4-10.8)
[2021-03-02 12:10] LABS: ALT 30 U/L (16-63); AST 21 U/L (15-37); Albumin 3.1 g/dL (3.4-5.0); Alkaline Phosphatase 104 U/L (46-116); Anion Gap 8.5 mmol/L (3-11); BUN 13 mg/dL (7-18); Bilirubin, Total 0.7 mg/dL (0.2-1.0); CO2 28.5 mmol/L (21.0-32.0); CREATININE 0.9 mg/dL (0.70-1.30); Calcium 8.2 mg/dL (8.5-10.1); Chloride 104 mmol/L (98-107); Glucose 129 mg/dL (74-106); Potassium 3.8 mmol/L (3.5-5.1); Sodium 141 mmol/L (136-145); Total Protein 6.9 g/dL (6.4-8.2)
[2021-03-09] MEDS: Normal Saline Flush 10 ML SYR IVP (09:11)
[2021-03-09 09:21] LABS: Abs Immature Grans 0.04 10^3/uL (0.0-0.06); Absolute Basophil Count 0.03 10^3/uL (0.0-0.2); Absolute Eosinophil Count 0.12 10^3/uL (0.0-0.7); Absolute Lymphocyte Count 0.38 10^3/uL (1.2-3.4); Absolute Monocyte Count 0.46 10^3/uL (0.1-0.8); Absolute Neutrophil Count 3.55 10^3/uL (1.2-6.7); Basophils % 0.7; Eosinophils % 2.6; HCT 37.5 % (40.0-50.0); HGB 12.6 g/dL (13.5-17.5); Immature Grans % 0.9; Lymphocytes % 8.3; MCH 30.7 pg (27.0-33.0); MCHC 33.6 % (32.0-36.0); MCV 91.2 fL (80-95); MPV 9.4 fL (8.0-11.0); Neutrophils % 77.5; Nucleated RBC 0 %; Platelet Count 163 10^3/uL (130-400); RBC 4.11 10^6/uL (4.36-5.78); RDW 16.1 % (11.8-14.1); RDW-SD 50.9 fL; WBC 4.58 10^3/uL (4.4-10.8)
[2021-03-09 10:01] LABS: ALT 26 U/L (16-63); AST 28 U/L (15-37); Albumin 3.3 g/dL (3.4-5.0); Alkaline Phosphatase 98 U/L (46-116); BUN 15 mg/dL (7-18); Bilirubin, Total 0.9 mg/dL (0.2-1.0); CREATININE 0.9 mg/dL (0.70-1.30); Calcium 8.6 mg/dL (8.5-10.1); Chloride 104 mmol/L (98-107); Glucose 91 mg/dL (74-106); Potassium 4.2 mmol/L (3.5-5.1); Sodium 141 mmol/L (136-145)
[2021-03-16] MEDS: Normal Saline Flush 10 ML SYR IVP (09:45)
[2021-03-16 09:57] LABS: Abs Immature Grans 0.05 10^3/uL (0.0-0.06); Absolute Basophil Count 0.02 10^3/uL (0.0-0.2); Absolute Eosinophil Count 0.09 10^3/uL (0.0-0.7); Absolute Lymphocyte Count 0.22 10^3/uL (1.2-3.4); Absolute Monocyte Count 0.49 10^3/uL (0.1-0.8); Absolute Neutrophil Count 3.78 10^3/uL (1.2-6.7); Basophils % 0.4; Eosinophils % 1.9; HCT 34.1 % (40.0-50.0); HGB 11.5 g/dL (13.5-17.5); Immature Grans % 1.1; Lymphocytes % 4.7; MCH 31.3 pg (27.0-33.0); MCHC 33.7 % (32.0-36.0); MCV 92.7 fL (80-95); MPV 10.2 fL (8.0-11.0); Monocytes % 10.5; Neutrophils % 81.4; Nucleated RBC 1 %; Platelet Count 174 10^3/uL (130-400); RBC 3.68 10^6/uL (4.36-5.78); RDW-SD 57.1 fL; WBC 4.65 10^3/uL (4.4-10.8)
[2021-03-16 11:22] LABS: ALT 20 U/L (16-63); AST 15 U/L (15-37); Alkaline Phosphatase 92 U/L (46-116); Anion Gap 8.8 mmol/L (3-11); BUN 16 mg/dL (7-18); Bilirubin, Total 1.1 mg/dL (0.2-1.0); CO2 28.2 mmol/L (21.0-32.0); CREATININE 0.9 mg/dL (0.70-1.30); Calcium 8.2 mg/dL (8.5-10.1); Chloride 103 mmol/L (98-107); Glucose 89 mg/dL (74-106); Potassium 3.9 mmol/L (3.5-5.1); Sodium 140 mmol/L (136-145); Total Protein 6.5 g/dL (6.4-8.2)
[2021-03-23 09:49] LABS: Abs Immature Grans 0.06 10^3/uL (0.0-0.06); Absolute Basophil Count 0.03 10^3/uL (0.0-0.2); Absolute Lymphocyte Count 0.22 10^3/uL (1.2-3.4); Absolute Monocyte Count 0.56 10^3/uL (0.1-0.8); Absolute Neutrophil Count 3.12 10^3/uL (1.2-6.7); Basophils % 0.7; Eosinophils % 2.4; HCT 32.1 % (40.0-50.0); HGB 10.7 g/dL (13.5-17.5); Immature Grans % 1.5; Lymphocytes % 5.4; MCH 30.9 pg (27.0-33.0); MCHC 33.3 % (32.0-36.0); MCV 92.8 fL (80-95); MPV 9.5 fL (8.0-11.0); Monocytes % 13.7; Neutrophils % 76.3; Nucleated RBC 1 %; Platelet Count 207 10^3/uL (130-400); RBC 3.46 10^6/uL (4.36-5.78); RDW 18.4 % (11.8-14.1); RDW-SD 61.3 fL; WBC 4.09 10^3/uL (4.4-10.8)
[2021-03-23 10:10] LABS: ALT 30 U/L (16-63); AST 25 U/L (15-37); Albumin 2.9 g/dL (3.4-5.0); Alkaline Phosphatase 100 U/L (46-116); BUN 14 mg/dL (7-18); Bilirubin, Total 1.4 mg/dL (0.2-1.0); CREATININE 0.9 mg/dL (0.70-1.30); Calcium 8.3 mg/dL (8.5-10.1); Chloride 101 mmol/L (98-107); Glucose 113 mg/dL (74-106); Potassium 3.5 mmol/L (3.5-5.1); Sodium 138 mmol/L (136-145); Total Protein 6.5 g/dL (6.4-8.2)
== END 2021-03-29 23:59 | disposition home or self-care (01) ==
LOC: INF 00:52
PROVIDERS: PCP Emergency Medicine; Visit Provider Internal Medicine Hematology & Oncology
DX: Z85.828 Personal history of other malignant neoplasm of skin (principal)
CPT/HCPCS: 36415; 80053; 85025

== ENCOUNTER 2021-03-30 02:15 | Outpatient (RCR) | payer MEDICARE, OTHER, SELFPAY ==
[2021-03-30 13:04] LABS: Abs Immature Grans 0.04 10^3/uL (0.0-0.06); Absolute Basophil Count 0.04 10^3/uL (0.0-0.2); Absolute Eosinophil Count 0.16 10^3/uL (0.0-0.7); Absolute Lymphocyte Count 0.73 10^3/uL (1.2-3.4); Absolute Monocyte Count 1.05 10^3/uL (0.1-0.8); Absolute Neutrophil Count 4.33 10^3/uL (1.2-6.7); Basophils % 0.6; Eosinophils % 2.5; HCT 33.6 % (40.0-50.0); HGB 10.6 g/dL (13.5-17.5); Immature Grans % 0.6; Lymphocytes % 11.5; MCH 29.6 pg (27.0-33.0); MCHC 31.5 % (32.0-36.0); MCV 93.9 fL (80-95); MPV 9.3 fL (8.0-11.0); Monocytes % 16.5; Neutrophils % 68.3; Nucleated RBC 0 %; Platelet Count 249 10^3/uL (130-400); RBC 3.58 10^6/uL (4.36-5.78); RDW 18.2 % (11.8-14.1); RDW-SD 62.4 fL; WBC 6.35 10^3/uL (4.4-10.8)
[2021-03-30 13:17] LABS: ALT 50 U/L (16-63); AST 32 U/L (15-37); Albumin 2.6 g/dL (3.4-5.0); Alkaline Phosphatase 124 U/L (46-116); BUN 12 mg/dL (7-18); CREATININE 0.9 mg/dL (0.70-1.30); Calcium 8.4 mg/dL (8.5-10.1); Chloride 103 mmol/L (98-107); Glucose 106 mg/dL (74-106); Potassium 3.6 mmol/L (3.5-5.1); Sodium 142 mmol/L (136-145); Total Protein 6.5 g/dL (6.4-8.2)
== END 2021-04-28 23:59 | disposition home or self-care (01) ==
LOC: INF 02:15
PROVIDERS: PCP Emergency Medicine; Visit Provider Internal Medicine Hematology & Oncology
DX: Z85.828 Personal history of other malignant neoplasm of skin (principal)
CPT/HCPCS: 36415; 80053; 85025

== ENCOUNTER → 2021-04-09 13:27 | Outpatient (BNVA) | payer MEDICARE, OTHER, SELFPAY | PROVIDERS: PCP Emergency Medicine; Referring Provider Emergency Medicine; Visit Provider Internal Medicine Cardiovascular Disease | DX: I25.10 Atherosclerotic heart disease of native coronary artery without angina pectoris (principal); R53.83 Other fatigue; C79.89 Secondary malignant neoplasm of other specified sites; I10 Essential (primary) hypertension; I48.21 Permanent atrial fibrillation; Z79.01 Long term (current) use of anticoagulants | CPT/HCPCS: 99214 ==

== ENCOUNTER 2021-04-21 00:59 | Outpatient (CLI) | payer MEDICARE, OTHER, SELFPAY ==
--- NOTE | 2021-04-21 06:30 | DI.RAD_ITS ---
Exam(s) XR CHEST 2V PA LATERAL EXAM: XR CHEST 2V PA LATERAL CLINICAL HISTORY: SOB,R06.02 TECHNIQUE: COMPARISON: CT CT NECK W from 02/01/2021 CR,XR XR CHEST 2V PA LATERAL from 02/01/[address] NECK W from 02/01/2021 CR,XR XR CHEST 2V PA LATERAL from 02/01/2021 FINDINGS: This patient has a history of a right cervical mass. Today's chest radiograph is compared with prior radiograph of February 01. There is new opacification of the right lung apex with pleural based a nd parenchymal increased radiodensities. There is question widening of the superior mediastinum. Otherwise the lungs remain grossly clear except for some changes of scarring. No pleural effusion se en. IMPRESSION: New pleural based and parenchymal opacities at the right lung apex. Considering previous history of a right cervical mass, additional evaluation with chest CT is recommended for further evaluation. RADIATION DOSE DELIVERED: Total DLP
== END 2021-04-21 01:19 ==
PROVIDERS: PCP Emergency Medicine; Visit Provider Emergency Medicine
DX: R06.02 Shortness of breath (principal); R91.8 Other nonspecific abnormal finding of lung field
CPT/HCPCS: 71046

== ENCOUNTER 2021-04-30 20:32 | Outpatient (REF) | payer MEDICARE, OTHER, SELFPAY ==
[2021-04-30 20:09] LABS: NT-proBNP 1721 pg/mL (<300)
== END 2021-04-30 20:33 | disposition home or self-care (01) ==
LOC: LBN 20:32
PROVIDERS: PCP Emergency Medicine; Visit Provider Emergency Medicine
DX: I50.9 Heart failure, unspecified (principal); R06.02 Shortness of breath
CPT/HCPCS: 83880

== ENCOUNTER 2021-05-01 01:23 | Outpatient (CLI) | payer MEDICARE, OTHER, SELFPAY ==
[2021-05-01 14:49] LABS: Abs Immature Grans 0.02 10^3/uL (0.0-0.06); Absolute Basophil Count 0.04 10^3/uL (0.0-0.2); Absolute Eosinophil Count 0.15 10^3/uL (0.0-0.7); Absolute Lymphocyte Count 1.53 10^3/uL (1.2-3.4); Absolute Monocyte Count 0.59 10^3/uL (0.1-0.8); Absolute Neutrophil Count 4.43 10^3/uL (1.2-6.7); Basophils % 0.6; Eosinophils % 2.2; HCT 40.2 % (40.0-50.0); HGB 12.3 g/dL (13.5-17.5); Immature Grans % 0.3; Lymphocytes % 22.6; MCH 28.4 pg (27.0-33.0); MCHC 30.6 % (32.0-36.0); MCV 92.8 fL (80-95); Monocytes % 8.7; Neutrophils % 65.6; Nucleated RBC 0 %; Platelet Count 188 10^3/uL (130-400); RBC 4.33 10^6/uL (4.36-5.78); RDW-SD 61.7 fL; WBC 6.76 10^3/uL (4.4-10.8)
[2021-05-01 15:01] LABS: ALT 21 U/L (16-63); AST 22 U/L (15-37); Albumin 2.5 g/dL (3.4-5.0); Alkaline Phosphatase 143 U/L (46-116); Anion Gap 5.2 mmol/L (3-11); BUN 14 mg/dL (7-18); Bilirubin, Total 0.5 mg/dL (0.2-1.0); CO2 30.8 mmol/L (21.0-32.0); CREATININE 0.8 mg/dL (0.70-1.30); Calcium 8.2 mg/dL (8.5-10.1); Chloride 103 mmol/L (98-107); Glucose 134 mg/dL (74-106); Potassium 3.8 mmol/L (3.5-5.1); Sodium 139 mmol/L (136-145); Total Protein 6.2 g/dL (6.4-8.2)
--- NOTE | 2021-05-01 15:29 | DI.CT_ITS ---
Exam(s) CT CHEST W EXAM: CT CHEST W CLINICAL HISTORY: SQUAMOUS CELL SKIN CANCER C44.92 DIFFICULTY BREATHING R06.89. TECHNIQUE: Multi planar reconstructions were performed. CONTRAST MATERIAL: Omnipaque 350; 75 cc COMPARISON: CT CT NECK W from 02/01/[address] NECK W from 02/01/2021 CR,XR XR CHEST 2V PA LATERAL from 02/01/2021 CR,XR XR CHEST 2V PA LATERAL from 02/01/2021 CR XR CHEST 2V PA LATERAL from 04/21/2021 CR XR CHEST 2V PA LATERAL from 04/21/2021 FINDINGS: Submitted for interpretation 05/02/2021 CHEST: LUNGS: There is infiltrate in both lung apices, more so on the right side. Superimposed upon COPD fi ndings. No overlying rib destruction. There is a sys very small right pleural effusion. Some bilat eral interstitial disease also noted. No significant focal findings in the trachea and mainstem bron chi. MEDIASTINUM: There is no hilar nor mediastinal adenopathy. Visualized thyroid unremarkable. CARDIAC: Mild cardiomegaly. No pericardial effusion.Significant coronary artery calcification in the LAD noted. Also in the circumflex. Diameter of the ascending thoracic aorta is enlarged at 4.2 cm. Diameter of the mid thoracic aortic arch is 3 cm. Diameter of the proximal descending thoracic aor ta is 3.2 cm, also enlarged. Diameter of the distal descending thoracic aorta is upper normal, measu ring 2.6 cm. No dissection. VISUALIZED UPPER ABDOMEN:There are no significant adrenal masses. OSSEOUS: There healed fracture of the posterior aspect of the left 4th, 5th, 6 ribs. Also healed fra cture site in the anterolateral aspect of the left 4th and 5th ribs. No acute rib fractures evident. No lytic osseous lesions evident. IMPRESSION: 1. There is significant infiltrate in the right lung apex, as evident on chest x-ray 04/21/2021. Thi s was not evident on prior chest x-ray of 02/02/2021. There is no overlying rib destruction. There is a tiny amount of right pleural fluid. 2. Cardiomegaly. No pericardial effusion. Coronary artery calcification. 3. Enlarged thoracic aorta. Diameter of ascending thoracic aorta is 4.2 cm. There is no dissection. RADIATION DOSE DELIVERED: 559.16mGy.cm Total DLP DATA REPOSITORY: All CT scans at this facility are submitted to the National Radiology Data Registry (NRDR) Dose Index Registry (DIR) with the [employer] (ACR). RADIATION OPTIMIZATION: All CT scans at this facility use at least one of these dose optimization te chniques: automated exposure control; mA and/or kV adjustment per patient size (includes targeted exa ms where dose is matched to clinical indication); or iterative reconstruction.
[2021-05-01] MEDS: Omnipaque 350 MG/ML 100 ML BTL IJ (15:32)
[2021-05-01 21:53] LABS: CRP, High Sensitivity 3.51 mg/L (See Note)
[2021-05-04 09:11] LABS: Prealbumin 20 mg/dL (20-40)
== END 2021-05-01 01:43 ==
PROVIDERS: Nurse Practitioner Family; PCP Emergency Medicine; Visit Provider Internal Medicine Hematology & Oncology
DX: C44.92 Squamous cell carcinoma of skin, unspecified (principal); R06.89 Other abnormalities of breathing; R91.8 Other nonspecific abnormal finding of lung field; I51.7 Cardiomegaly
CPT/HCPCS: 80053; 86141; 71260; 84134; 85025; J3490

== ENCOUNTER 2021-05-13 00:08 | Outpatient (CLI) | payer MEDICARE, OTHER, SELFPAY ==
--- NOTE | 2021-05-13 13:55 | DI.US_ITS ---
APPROVED REPORT EXAM: Comprehensive 2D, Doppler, and color-flow Echocardiogram Patient Location: Out-Patient [employer] Apprentice: Leah Baig RDCS (AE) Indications: SOB, Fatigue Other Information Study Quality: Adequate Conclusion Left ventricle is mildly dilated. Left ventricular systolic function is mildly reduced. Estimated e jection fraction is 45%. The inferior and posterior banks are hypokinetic Normal right ventricular size and systolic function Both atria are severely dilated Aortic valve is sclerotic and trileaflet. There is moderate aortic regurgitation Mild mitral annular calcification. Moderate mitral regurgitation Normal tricuspid valve with moderate tricuspid regurgitation. Estimated right ventricular systolic p ressure is 25 mmHg Dilated aortic root and ascending aorta Wall motion Left Ventricle Left ventricle is mildly dilated. Left ventricular systolic function is mildly decreased. There is no rmal left ventricular wall thickness. Inferior and posterior hypokinesis There is no ventricular sept al defect visualized. LVEF is 45%. Right Ventricle Right ventricle is mild to moderately dilated. The right ventricular systolic function is normal. The RVSP is 24.3 mmHg. Atria Left atrium is severely dilated. Right atrium is severely dilated. The interatrial septum is intact w ith no evidence for an atrial septal defect. Aortic Valve The Aortic valve is sclerotic. There is no aortic valvular stenosis. Moderate aortic regurgitation. Mitral Valve Mild mitral annular calcification. No evidence of mitral valve stenosis. Moderate mitral regurgitatio n. Tricuspid Valve The tricuspid valve is normal in structure. There is no tricuspid valve stenosis. Moderate tricuspid regurgitation. Pulmonic Valve The pulmonary valve is normal in structure. There is no pulmonic valvular stenosis. There is no pulmo gail valvular regurgitation. Great Vessels Aortic root is moderately dilated. The ascending aorta is moderately dilated. Aortic arch is dilated . IVC is normal in size and collapses >50% with inspiration. Pericardium There is no pericardial effusion. 2D Dimensions IVSD d PLAX 1.04 cm M: 0.6-1.2 LV Vol A2C d MOD 179.0 mL LVPW d PLAX 1.04 cm M: 0.6 - 1.2 LV Vol A4C d MOD 170.2 mL LVID d PLAX 6.46 cm M: 4.2 - 5.8 LA vol/ BSA A2C s A-L 58.8 mL/m2 LVDs 4.95 cm M: 2.5 - 4.0 LA vol/ BSA A4C s A-L 53.8 mL/m2 Ao Root d 4.05 cm M: 3.1 - 3.7 LA Vol/ BSA Biplane s A-L 56.7 mL/m2 RA Area A4C 25.77 cm2 LA Area A4C s MOD 32.61 cm2 RA Vol/ BSA A4C s A-L 32.9 mL/m2 LA Area A2C s MOD 33.77 cm2 Ao Asc Diam d 4.11 cm M: 2.6 - 3.4 LV EF A4C MOD 50.4 % LV EF Teichholz 45.1 % LV EF A2C MOD 45.7 % LVEF (Coelho's) 46.82 % M: 52 - 72 LV EF Biplane MOD 46.8 % LV Volume 126.65 mL M: 62 - 150 SV 82.44 mL LV Volume Index 55.54 mL/m2 M: 34 - 74 SV Index 36.15 mL/m2 LV Vol Biplane MOD 176.1 mL FS 22.95 % M-Mode TAPSE 1.08 cm (M/F) >1.7 LV Diastology MV E' medial 0.091 (>0.07 m/s) MV E Vmax 0.87 (0.4-1.3 m/s) LV E/e MED 9.50 (<14) MV E' lateral 0.084 (>0.1 m/s) LV E/e LAT 10.25 (<14) MV E/E' medial 9.52 MV E/E' lateral 10.29 Aortic Valve LVOT Area 3.82 cm2 AoV Area Vmax 2.57 cm2 LVOT Vmax 1.00 m/s AoV Area/ BSA (Vmax) 1.13 cm2/m2 LVOT Mean Eldon. 0.69 m/s CESAR Mean [place]. 2.59 cm2 LVOT Peak Grad 4.0 mmHg CESAR Mean [place]. Index 1.14 cm2/m2 LVOT Mean Grad 2.2 mmHg AR DT 1861 msec LVOT VTI 0.171 m AR PHT 540 msec LVOT Diam s 2.20 cm AoV Vmax 1.48 m/s Velocity Ratio 0.67 AoV Mean [place]on. 1.02 m/s AoV Peak Grad 8.8 mmHg LVOT SV 65.29 mL AoV Mean Grad 4.8 mmHg AoV VTI 0.265 m AoV Area VTI 2.46 cm2 AoV Area/ BSA (VTI) 1.08 cm/m2 Mitral Valve MV DT 175 (160-240 msec) MR Vmax 4.94 m/s MV PHT 51 msec MR VTI 1.481 m MV Area PHT 4.33 cm2 MR Peak Grad 97.5 mmHg MV VTI 0.207 m MR Mean Grad 71.9 mmHg MV VTI Annulus 0.244 m MR PISA Radius 0.51 cm MV Area VTI 3.85 (4.0-6.0 cm2) MR EROA 0.11 cm2 MR Aliasing Velocity 0.35 m/s MR PISA 1.61 cm2 Pulmonary Valve PV Vmax 0.82 (0.5-1.5 m/s) RVOT Peak Gr. 0.94 mmHg PV Peak Grad 2.7 mmHg RVOT Mean Gr. 0.45 mmHg PV Mean Grad 1.2 mmHg RVOT VTI 0.083 m PV VTI 0.114 m RVOT Vmax 0.48 m/s Tricuspid Valve TR Peak Grad 21.2 mmHg TR Vmax 2.31 m/s RA Pressure 3.00 mmHg RVSP (TR) 24.3 mmHg
== END 2021-05-13 00:28 ==
PROVIDERS: PCP Emergency Medicine; Visit Provider Internal Medicine Cardiovascular Disease
DX: I08.3 Combined rheumatic disorders of mitral, aortic and tricuspid valves (principal); I77.810 Thoracic aortic ectasia; R53.83 Other fatigue
CPT/HCPCS: 93306

== ENCOUNTER 2021-05-19 10:08 | Outpatient (CLI) | payer MEDICARE, OTHER, SELFPAY ==
--- NOTE | 2021-05-19 | DI.CT_ITS ---
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 Pulmonary parenchyma: Slight improvement in the bilateral upper lobe infiltrates. Scarring and tracti on bronchiectasis is seen in the right upper lobe. No pulmonary nodules are present. Persistent pleur al thickening and interstitial disease in the lower lobes. Visualized thyroid gland: Unremarkable. Mediastinum and Chelo: No dominant adenopathy or fluid collection. There is diffuse mild thickening of the wall of the esophagus. Pleura: No effusion or pneumothorax. Heart: Cardiomegaly. Coronary artery calcifications. No pericardial effusion. Pulmonary arteries: No evidence of pulmonary embolism. Aorta: Stable thoracic aortic size. Atherosclerosis. Lymph nodes: Within normal limits. Soft tissues: Unremarkable. Bones:Old left rib fractures. No aggressive lytic or sclerotic lesions. ABDOMEN: Liver: Normal density. There is a 1.4 cm area of decreased attenuation in the right lobe of the liver . Portal, Superior Mesenteric, and Splenic Veins: Unremarkable. Gallbladder and Biliary Tract: Status post cholecystectomy. No significant biliary ductal dilatation . Pancreas: Normal density, no abnormal calcifications or inflammatory process. Spleen: There is a 1.9 cm hypodense area in the spleen. Adrenals: There is a 3.2 x 3.4 cm mass associated with the right adrenal gland. There is central low density suggesting necrosis. There is a 1.9 x 2.4 cm hypodense mass associated with the left adrena l gland. Kidneys: Normal size, contour and axis. No radiodense stones or obstructive uropathy. No masses seen. Abdominal Aorta: Abdominal portion non-dilated. Atherosclerosis. There is ectasia of the abdominal a manuel measuring up to 2.8 cm. Bowel: No obstruction or bowel wall thickening. Appendix is unremarkable. There is diverticulosis of the sigmoid colon, but no evidence of acute diverticulitis. Peritoneal Cavity: There multiple masses seen within the peritoneal cavity consistent with metastatic disease. There are lesions seen within the mesentery and lesions associated with the liver and smal l and large bowel. These are most consistent with metastatic deposits. There is a mass to the right of the celiac axis measuring 4.7 x 2.8 cm which may represent adenopathy. No free air. No ascites. Lymph Nodes: Please see the above discussion. Bones: Within normal limits for the patient's age. Total total hip replacements. Soft Tissues: There is a 0.9 cm soft tissue mass adjacent to the right iliac bone. There is a periphe rally enhancing lesion in the left gluteus muscle. There is a 1.5 cm peripherally enhancing mass in t he musculature of the right anterior abdominal wall. PELVIS: Bladder: The urinary bladder is largely obscured by artifact from the patient's total hip replacement s. Reproductive Organs: The prostate gland appears enlarged. Lymph Nodes: Within normal limits. Bones: Within normal limits. IMPRESSION: 1. 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 2. No definite evidence of thoracic metastatic disease. 3. Slight improvement of the upper lobe infiltrates since 05/01/2021. 4. Chronic pulmonary fibrotic changes in the lungs. RADIATION DOSE DELIVERED: 1,998.73mGy.cm Total DLP DATA REPOSITORY: All CT scans at this facility are submitted to the National Radiology Data Registry (NRDR) Dose Index Registry (DIR) with the [employer] (ACR). RADIATION OPTIMIZATION: All CT scans at this facility use at least one of these dose optimization te chniques: automated exposure control; mA and/or kV adjustment per patient size (includes targeted exa ms where dose is matched to clinical indication); or iterative reconstruction.
[2021-05-19] MEDS: Omnipaque 350 MG/ML 100 ML BTL IJ (12:21)
[2021-05-19] MEDS: Breeza Beverage 473 ML BTL PO (12:22)
[2021-05-19] MEDS: Omnipaque 350 MG/ML 50 ML BTL PO (12:23)
== END 2021-05-19 10:28 ==
PROVIDERS: PCP Emergency Medicine; Visit Provider Internal Medicine Hematology & Oncology
DX: C44.92 Squamous cell carcinoma of skin, unspecified (principal); R10.10 Upper abdominal pain, unspecified; R91.8 Other nonspecific abnormal finding of lung field; R93.5 Abnormal findings on diagnostic imaging of other abdominal regions, including retroperitoneum
CPT/HCPCS: 74177; 71260; J3490; Q9967

== ENCOUNTER 2021-05-19 17:23 | Outpatient (REF) | payer MEDICARE, OTHER, SELFPAY ==
[2021-05-19 20:40] LABS: Abs Immature Grans 0.02 10^3/uL (0.0-0.06); Absolute Basophil Count 0.04 10^3/uL (0.0-0.2); Absolute Eosinophil Count 0.16 10^3/uL (0.0-0.7); Absolute Monocyte Count 0.72 10^3/uL (0.1-0.8); Absolute Neutrophil Count 4.44 10^3/uL (1.2-6.7); Basophils % 0.6; Eosinophils % 2.4; HCT 41.8 % (40.0-50.0); HGB 13.1 g/dL (13.5-17.5); Immature Grans % 0.3; Lymphocytes % 19.5; MCH 28.3 pg (27.0-33.0); MCHC 31.3 % (32.0-36.0); MCV 90.3 fL (80-95); MPV 10.3 fL (8.0-11.0); Monocytes % 10.8; Neutrophils % 66.4; Nucleated RBC 0 %; Platelet Count 170 10^3/uL (130-400); RBC 4.63 10^6/uL (4.36-5.78); RDW 17.1 % (11.8-14.1); RDW-SD 57.1 fL; WBC 6.68 10^3/uL (4.4-10.8)
[2021-05-19 21:33] LABS: ALT 15 U/L (16-63); AST 18 U/L (15-37); Albumin 2.8 g/dL (3.4-5.0); Alkaline Phosphatase 160 U/L (46-116); BUN 10 mg/dL (7-18); Bilirubin, Total 0.5 mg/dL (0.2-1.0); CREATININE 0.7 mg/dL (0.70-1.30); Calcium 8.6 mg/dL (8.5-10.1); Chloride 101 mmol/L (98-107); GGT 33 U/L (15-85); Glucose 130 mg/dL (74-106); Potassium 3.7 mmol/L (3.5-5.1); Sodium 138 mmol/L (136-145)
[2021-05-19 21:34] LABS: Iron 31 ug/dL (65-175); Total Iron Binding Capacity 218 ug/dL (250-450); Transferrin Sat 14 % (20-55)
== END 2021-05-19 17:24 | disposition home or self-care (01) ==
LOC: LBN 17:23
PROVIDERS: PCP Emergency Medicine; Visit Provider Emergency Medicine
DX: G89.29 Other chronic pain (principal); R10.9 Unspecified abdominal pain; K63.5 Polyp of colon; E78.5 Hyperlipidemia, unspecified
CPT/HCPCS: 80053; 82977; 83540; 83550; 85025

== ENCOUNTER 2021-06-10 09:13 | Outpatient (CLI) | payer MEDICARE, OTHER, SELFPAY ==
[2021-06-10 15:49] LABS: Abs Immature Grans 0.13 10^3/uL (0.0-0.06); Absolute Basophil Count 0.02 10^3/uL (0.0-0.2); Absolute Lymphocyte Count 1.09 10^3/uL (1.2-3.4); Basophils % 0.1; Eosinophils % 0.4; HCT 44.5 % (40.0-50.0); HGB 13.5 g/dL (13.5-17.5); Immature Grans % 0.8; Lymphocytes % 6.9; MCHC 30.3 % (32.0-36.0); Monocytes % 8.8; Nucleated RBC 0 %; Platelet Count 289 10^3/uL (130-400); RDW 16.4 % (11.8-14.1); RDW-SD 53.7 fL; WBC 15.85 10^3/uL (4.4-10.8)
[2021-06-10 15:50] LABS: Absolute Eosinophil Count 0.06 10^3/uL (0.0-0.7); Absolute Monocyte Count 1.39 10^3/uL (0.1-0.8); Absolute Neutrophil Count 13.16 10^3/uL (1.2-6.7)
[2021-06-10 17:06] LABS: ALT 46 U/L (16-63); AST 39 U/L (15-37); Albumin 3.1 g/dL (3.4-5.0); Alkaline Phosphatase 130 U/L (46-116); Anion Gap 14.8 mmol/L (3-11); BUN 22 mg/dL (7-18); Bilirubin, Total 0.4 mg/dL (0.2-1.0); CO2 25.2 mmol/L (21.0-32.0); CREATININE 1.3 mg/dL (0.70-1.30); Calcium 9.7 mg/dL (8.5-10.1); Chloride 94 mmol/L (98-107); Estimated GFR 52.98 (mL/min/1.73m2); Glucose 113 mg/dL (74-106); Potassium 4.9 mmol/L (3.5-5.1); Sodium 134 mmol/L (136-145); Total Protein 7.3 g/dL (6.4-8.2)
== END 2021-06-10 09:14 | disposition home or self-care (01) ==
LOC: LBO 09:14
PROVIDERS: PCP Emergency Medicine; Visit Provider Internal Medicine Hematology & Oncology
DX: Z85.828 Personal history of other malignant neoplasm of skin (principal)
CPT/HCPCS: 36415; 80053; 85025

== ENCOUNTER 2021-06-11 16:41 | Emergency (ER) | payer MEDICARE, OTHER, SELFPAY ==
[2021-06-11] VITALS (26 sets, daily range): BP systolic 102–141; BP diastolic 70–87; PULSE 53–123; RESP 11–17; TEMP 35.9–36.6; O2SAT 77–99
--- NOTE | 2021-06-11 17:00 | DI.CT_ITS ---
Exam(s) CT ABDOMEN PELVIS W EXAM: CT ABDOMEN PELVIS W CLINICAL HISTORY: Hx of Abdominal Mass, Abd Pain, Constipation. TECHNIQUE: Imaging Protocol: Axial computed tomography images with coronal and sagittal reformatted images were created and reviewed CONTRAST MATERIAL: Intravenous: Omnipaque 100cc Oral: None COMPARISON: CT CT CHEST/ABD/PEL W from 05/19/2021 FINDINGS: VISUALIZED LUNG BASES: Mild increased markings both lung bases. No pleural effusions.. ABDOMEN: There is no ascites in the upper abdomen.. However, there are significantly increased number and siz e of metastatic nodules in the retroperitoneum mesentery and para-aortic region. There is also a new metastatic appearing lesion interposed between the posterior aspect the stomach and the spleen which measures 0.7 x 3 cm, not previously present. Confluent masses are also seen in the retroperitoneum and most prominent ab between the portal vein and IVC (portacaval). LIVER: There are no focal hepatic lesions evident . GALLBLADDER/BILIARY: The gallbladder is again noted be surgically absent. CBD is not dilated. PANCREAS: Multiple masses class pathologic lymph nodes are noted adjacent to the pancreas and splenic vein. There does not appear to be an obvious intrinsic pancreatic mass nor dilatation of the pancre atic duct. SPLEEN: There is a metastatic appearing 3 by 4 cm mass in the spleen. Also multiple masses now evide nt in the splenic hilar region, more so than previous. Multiple masses seen along the course of the splenic and portal veins. These veins are not thrombosed. ADRENALS: Increasing metastatic nodules KIDNEYS:No cysts evident. No solid renal masses. No calculi nor hydronephrosis.. ABDOMINAL AORTA: There is again noted a fusiform infrarenal abdominal aortic aneurysm. Maximum diame ter is just above the aortic bifurcation, measuring 3 cm. LYMPH NODES:Significant increase in retroperitoneal and para-aortic adenopathy. ABDOMINAL WALL: No evidence of significant anterior abdominal wall nor inguinal hernia. GI: There is diffuse thickening of the gastric wall suspicious for pathologic involvement such as pos sible lymphoma or line itis plastica. PELVIS: There is a small amount of free fluid in the dependent aspect of the pelvis. GI: No evidence of appendicitis.No evidence of sigmoid diverticulitis. LYMPH NODES: There is no adenopathy around the aortic bifurcation nor along the iliac chains and ther e is no inguinal adenopathy. REPRODUCTIVE: Prostate gland is enlarged. URINARY BLADDER: Difficult to assess because of beam hardening artifact from both hip prostheses. OSSEOUS: Bilateral hip prostheses. IMPRESSION: 1. Compared to the prior CT scan of 2119 there has been significant further deterioration, as desc ribed above. There has been significant progression in intra-abdominal metastatic disease with large bulky retroperitoneal and para-aortic lymphadenopathy as well as enlarging adrenal masses, enlarging splenic mass and new mass with measurements as above interposed between the gastric fundus and splee n. Stomach also appears diffusely thickened, either related to pathologic infiltration such as lymph mary or linitis plastica. 2. There is an infrarenal abdominal aortic aneurysm with maximum measurement 3 cm, this just above th e aortic bifurcation. There does not appear at to be adenopathy at nor below the level of the aortic bifurcation and there is no adenopathy in the inguinal regions. 3. There is no ascites in the upper abdomen but there is a small amount of free fluid in the dependen t aspect pelvis. There is no bowel obstruction. 4. The gallbladder surgically absent. The CBD is not dilated. 5. There are no obvious lytic osseous lesions identified RADIATION DOSE DELIVERED: 1,159.75mGy.cm Total DLP DATA REPOSITORY: All CT scans at this facility are submitted to the National Radiology Data Registry (NRDR) Dose Index Registry (DIR) with the [employer] (A[employer]). RADIATION OPTIMIZATION: All CT scans at this facility use at least one of these dose optimization te chniques: automated exposure control; mA and/or kV adjustment per patient size (includes targeted exa ms where dose is matched to clinical indication); or iterative reconstruction.
--- NOTE | 2021-06-11 17:11 | ED.GENADUL_ITS ---
Discharge Plan Disposition Patient Disposition: HOME Condition: Stable Discharge Details Clinical Impression: Abdominal pain Primary Care Provider: Rocael Maurer ED Provider: Anjana Moore Home Meds and New Rx's Prescriptions: Continued magnesium oxide 400 mg (241.3 mg magnesium) tablet 400 mg PO BID RF: 0 PreserVision AREDS [id number] capsule 1 cap PO BID RF: 0 sucralfate [Carafate] 1 gram tablet 1 g PO QAC Qty: 90 RF: 3 omeprazole 40 mg capsule,delayed release(DR/EC) 40 mg PO BID Qty: 180 RF: 4 oxycodone [OxyContin] 10 mg tablet,oral only,ext.rel.12 hr 10 mg PO BID MDD 20mg Qty: 30 RF: 0 prednisone 20 mg tablet 20 mg PO BID Qty: 20 RF: 0 vitamin H43-ignsl acid 1 EACH tablet 1 ea PO DAILY RF: 0 nitroglycerin [Nitrostat] 0.4 MG tablet, sublingual 0.4 mg Sublingual Q5 MIN PRN X3 PRNQty: 60 RF: 0 aspirin 81 MG tablet,chewable 81 mg PO DAILY Qty: 30 RF: 0 cholecalciferol (vitamin D3) 1,000 UNIT capsule 1,000 unit PO DAILY RF: 0 atorvastatin [Lipitor] 40 mg tablet 40 mg PO QPM Qty: 90 RF: 4 Eliquis 5 mg tablet 5 mg PO BID Qty: 180 RF: 4 spironolactone 25 mg tablet 12.5 mg PO DAILY Qty: 45 RF: 3 cyanocobalamin (vitamin B-12) 500 mcg tablet 500 mcg PO DAILY RF: 0 lidocaine HCl [Lidocaine Viscous] 2 % solution 20 ml PO Q3H PRN (Reason: pain) RF: 0 sildenafil 50 mg tablet 50 mg PO DAILY PRNRF: 0 metoprolol succinate 50 mg tablet extended release 24 hr 50 mg PO BID Qty: 180 RF: 3 furosemide 40 mg tablet 40 mg PO DAILY Qty: 90 RF: 6 acetaminophen 500 mg Capsule 1,000 mg PO Q6H RF: 0 Discharge Instructions Instructions: Abdominal Pain (ED) Additional Instructions: At this time it appears that your masses in the abdomen appear to be enlarging. This is most likely the cause of your pain. Please take the pain medication as directed and take the additional oxycodone for breakthrough pain. There is no bowel obstruction or emergent need for admission or surgery at this time. Please discuss further pain management and with your oncology team. Follow up with primary care provider in 3-5 days. Return to ED sooner if any worsening or concerns. Increase oral fluids. Referrals: Rocael Maurer DO [Primary Care Provider] - 1 week Medical Decision Making 81-year-old male presents to the ER complaining of lower abdominal pain which has worsened over the last 24 hours. 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 He has a new cancer infusion treatment this morning at the [facility]. He reports he has been taking oxycodone 20 mg this a.m. and 11:00 and again at 1:35 PM. He reports that he fell asleep and woke up with severe worsening abdominal pain. He reports constipation and decreased appetite. He reports losing weight recently due to decreased appetite. He also did take MiraLAX Senokot around 2:30 PM. He denies any problems urinating. He denies any hematochezia, fever, chills chest pain or shortness of breath. Other past medical history include hypertension, coronary artery disease, hyperlipidemia, A. fib. Check decision making discussed with patient regarding labs and additional CT last CT was mid April. Patient agrees to go ahead with work-up to rule out obstruction or infection. Zofran will be ordered. CBC, CMP, lipase, urinalysis CT abdomen pelvis with IV contrast ordered. 500ml normal saline bolus. CT Abd Pelvis: IMPRESSION: 1. Progressive intra-abdominal metastatic disease within the large bulky retroperitoneal lymph nodes. Scattered areas of enlarging mesenteric nodularity and metastatic implants are also noted. 2. Enlarging bilateral adrenal metastatic lesions. 3. Enlarging splenic lesion now measuring 3.5 x 3.5 cm. Recommend splenic ultrasound. 4. Diffuse gastric wall thickening. Possibility of a gastric malignancy such as linitis plastica or lymphoma should be considered. There is an exophytic mass enlarging off the posterior gastric fundus measuring 4.2 x 4 cm. See series 4, image 17. This may be an enlarging serosal implant versus a primary gastric lesion. 5. No bowel obstruction. 6. Previous cholecystectomy. 7. Cardiomegaly. 8. Lung base emphysematous disease. 9. Mild aneurysmal change of the distal abdominal aorta. 10. Minor free fluid in the pelvis. 11. Degenerative lumbar spine disease. Bilateral hip prostheses. 12. Enlarging nodule in the precordial fat likely representing a metastatic deposit. Series 4, image 9. Thank you for allowing us to participate in the care of your patient. Dictated and Authenticated by: Romaine Perez MD Discussed CT results with patient. This time it does appear that the malignancy is worsening and there is enlarged masses. This time I do not feel that there is any need for admission or any emergent intervention. I did discuss follow-up with his oncology team reports he does have an appointment on Tuesday. I will send him home with some additional oxycodone to help with breakthrough pain and encouraged to discuss further pain management with his care team. This text was generated using [employer] system, please disregard any oddities of phrase or misspellings. Medical Records Medical records reviewed: Yes I reviewed the patient's medical records. Medical records narrative: Patient was seen by PCP on 04 June. Patient also had lab drawn yesterday which showed a white blood cell count with a left shift. Lab Data Lab results reviewed: Yes I reviewed the patient's lab results. Lab results narrative: Laboratory Tests Range/Units 06/11/21 06/11/21 06/11/21 17:25 17:25 18:25 WBC (4.4-10.8) 10^3/uL 13.82 H RBC (4.36-5.78) 10^6/uL 4.88 Hgb (13.5-17.5) g/dL 13.4 L Hct (40.0-50.0) % 42.5 MCV (80-95) fL 87.1 MCH (27.0-33.0) pg 27.5 MCHC (32.0-36.0) % 31.5 L RDW (11.8-14.1) % 16.6 H Plt Count (130-400) 10^3/uL 219 MPV (8.0-11.0) fL 8.8 Immature Gran % 0.0 Neutrophils % 76.0 Lymphocytes % 4.0 Atypical Lymphs % 12 Monocytes % 5.0 Eosinophils % 3.0 Basophils % 0.0 Nucleated RBC % % 0 Absolute Neutrophils (1.2-6.7) 10^3/uL 10.50 H Absolute Lymphocytes (1.2-3.4) 10^3/uL 2.21 Absolute Monocytes (0.1-0.8) 10^3/uL 0.69 Absolute Eosinophils (0.0-0.7) 10^3/uL 0.41 Absolute Basophils (0.0-0.2) 10^3/uL 0.00 RBC Morphology Normal Sodium (136-145) mmol/L 131 L Potassium (3.5-5.1) mmol/L 4.4 Chloride (98-107) mmol/L 96 L Carbon Dioxide (21.0-32.0) mmol/L 27.9 Anion Gap (3-11) mmol/L 7.1 BUN (7-18) mg/dL 28 H Creatinine (0.70-1.30) mg/dL 1.0 Estimated GFR/1.73 m2 (mL/min/1.73m2) >= 60.00 Glucose (74-106) mg/dL 122 H Calcium (8.5-10.1) mg/dL 9.7 Magnesium (1.8-2.4) mg/dL 1.9 Total Bilirubin (0.2-1.0) mg/dL 0.5 AST (15-37) U/L 24 ALT (16-63) U/L 39 Alkaline Phosphatase (46-116) U/L 125 H Total Protein (6.4-8.2) g/dL 7.3 Albumin (3.4-5.0) g/dL 3.2 L Lipase (73-393) U/L 40 Urine Color (Yellow) Yellow Urine Clarity (Clear) Clear Urine pH (5-8) 6.0 Ur Specific [place] (1.005-1.025) >= 1.030 H Urine Protein (Negative) mg/dL 30 H Urine Ketones (Negative) mg/dL Trace H Urine Blood (Negative) Negative Urine Nitrite (Negative) Negative Urine Bilirubin (Negative) Negative Urine Urobilinogen (Up TO 0.2) EU/dL 0.2 Ur Leukocyte Esterase (Negative) Negative Urine RBC (0-2) HPF Negative Urine WBC (0-5) HPF 0-2 Ur Epithelial Cells (Negative) HPF Negative Urine Crystals (Negative) HPF Mod Calcium Oxalate Urine Bacteria (Negative) HPF Negative Urine Casts (Negative) LPF 0-2 Fine Granular Urine Mucus (Negative) Negative Urine Other (Negative) Negative Ur Culture Indicated? No Urine Glucose (Negative) mg/dL Negative HPI General Mode of arrival: ambulatory . Date/Time Provider Initiated Documentation: 06/11/21 16:42 . Limitations to Documentation: no limitations . Information obtained by: patient, RN notes reviewed and old records reviewed . HPI Narrative: 81-year-old male presents to the ER complaining of lower abdominal pain which has worsened over the last 24 hours. 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 He has a new cancer infusion treatment this morning at the [facility]. He reports he has been taking oxycodone 20 mg this a.m. and 11:00 and again at 1:35 PM. He reports that he fell asleep and woke up with severe worsening abdominal pain. He reports constipation and decreased appetite. He reports losing weight recently due to decreased appetite. He also did take MiraLAX Senokot around 2:30 PM. He denies any problems urinating. He denies any hematochezia, fever, chills chest pain or shortness of breath. Other past medical history include hypertension, coronary artery disease, hyperlipidemia, A. fib. Related Data Home Medications Medication Instructions Recorded Confirmed vitamin [id number] acid 1 ea PO DAILY 08/23/12 06/11/21 nitroglycerin [Nitrostat] 0.4 mg SUBLINGUAL Q5 MIN PRN X3 08/18/16 06/11/21 PRN #60 tab aspirin 81 mg PO DAILY #30 tab-cap 08/03/17 06/11/21 cholecalciferol (vitamin D3) 1,000 unit PO DAILY 10/05/17 06/11/21 vitamins A,C,Z-[id number]-kfkduq 14,320 1 cap PO BID 03/20/20 06/11/21 unit-226 mg-200 unit capsule atorvastatin 40 mg tablet 40 mg PO QPM #90 cap 05/13/20 06/11/21 apixaban 5 mg tablet 5 mg PO BID #180 tab-cap 06/16/20 06/11/21 magnesium oxide 400 mg (241.3 mg 400 mg PO BID tab 11/05/20 06/11/21 magnesium) tablet spironolactone 25 mg tablet 12.5 mg PO DAILY #45 tab-cap 12/08/20 06/11/21 acetaminophen 1,000 mg PO Q6H 02/01/21 06/11/21 cyanocobalamin (vitamin B-12) 500 500 mcg PO DAILY 03/27/21 06/11/21 mcg tablet lidocaine HCl 2 % mucosal solution 20 ml PO Q3H PRN ml 03/27/21 06/11/21 sildenafil 50 mg tablet 50 mg PO DAILY PRN 03/27/21 06/11/21 omeprazole 40 mg capsule,delayed 40 mg PO BID #180 tab-cap 05/19/21 06/11/21 release sucralfate 1 gram tablet 1 g PO QAC #90 tab 05/19/21 06/11/21 metoprolol succinate 50 mg 50 mg PO BID #180 tab 05/21/21 06/11/21 tablet,extended release 24 hr furosemide 40 mg tablet 40 mg PO DAILY #90 tab 05/26/21 06/11/21 oxycodone 10 mg tablet,crush 10 mg PO BID #30 tab MDD 20mg 06/04/21 06/11/21 resistant,extended release 12 hr prednisone 20 mg tablet 20 mg PO BID #20 tab 06/04/21 06/11/21 Previous Rx's Medication Instructions Recorded aspirin 81 mg PO DAILY #30 tab-cap 08/03/17 atorvastatin 40 mg tablet 40 mg PO QPM #90 cap 05/13/20 apixaban 5 mg tablet 5 mg PO BID #180 tab-cap 06/16/20 spironolactone 25 mg tablet 12.5 mg PO DAILY #45 tab-cap 12/08/20 omeprazole 40 mg capsule,delayed 40 mg PO BID #180 tab-cap 05/19/21 release sucralfate 1 gram tablet 1 g PO QAC #90 tab 05/19/21 metoprolol succinate 50 mg 50 mg PO BID #180 tab 05/21/21 tablet,extended release 24 hr furosemide 40 mg tablet 40 mg PO DAILY #90 tab 05/26/21 oxycodone 10 mg tablet,crush 10 mg PO BID #30 tab MDD 20mg 06/04/21 resistant,extended release 12 hr prednisone 20 mg tablet 20 mg PO BID #20 tab 06/04/21 Allergies Allergy/AdvReac Type Severity Reaction Status Date / Time ibuprofen [From Advil] Allergy Severe RESPIRATORY Verified 06/11/21 17:15 DISTRESS General Stated Complaint: Abd Prob CASTRO: 3 Review of Systems All systems reviewed & are unremarkable except as noted in HPI and below Gastrointestinal Gastrointestinal: Reports abdominal pain PFSH All Active Problems (Updated 06/11/21 @ 20:20 by Anjana Moore) Abdominal pain (Acute) Chronic abdominal pain (Acute) SOB (shortness of breath) (Acute) Neck swelling (Acute) Mass of neck (Acute) Metastatic squamous cell carcinoma (Acute) Mass of right side of neck (Acute) facial Fever (Acute) Decreased appetite (Acute) Gram positive bacterial infection (Acute) Dehydration (Acute) Hypomagnesemia (Acute) Bilateral shoulder pain (Acute) Double vision with both eyes open (Acute) 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 MOORE; TUBULAR ADENOMA 2006 and 2009 Peripheral neuralgia (Acute) Obesity (Acute 11/06/12) Hyperlipidemia (Acute 11/06/12) Gastroesophageal reflux disease with esophagitis (Acute) Generalized osteoarthrosis (Acute 11/06/12) knees Family history of abdominal aortic aneurysm (Acute 11/05/15) brother neg US 2012 Chronic atrial fibrillation (Chronic 02/10/15) Cardiac Cath February 2015 RCA disease stents patent from 2006 cardioversion 2014 unsuccesful No change in medication today 04/03/18. Will need to be aware of any weight gain that might mean increasing his diuretic again. For now he is stable. Benign prostatic hyperplasia (Acute) Atherosclerosis of [place] coronary artery (Acute 11/06/12) stent 2005 last cath 2014 no interventions Aortic ectasia, thoracic (Acute 11/05/15) Actinic keratosis (Acute) Medical History Benign paroxysmal positional vertigo (01/10/18) Carpal tunnel syndrome Cataract Heart disease History of alcoholism Hypercholesterolemia Metastatic squamous cell carcinoma Status post percutaneous transluminal coronary angioplasty (~2008) stent placement Surgical History Colonoscopy - IV Sedation (09/06/12) DR. MOORE; POOR PREP, TUBULAR ADENOMA Colonoscopy - MAC (01/20/18) EGD - MAC (03/21/15) DR.TERRY HERNANDEZ History of esophagogastroduodenoscopy (05/05/15) History of umbilical hernia repair Repair of umbilical hernia (~2004) Status post coronary artery stent placement 5 Status post hip replacement x2 Stent placement (~2005) X 3 LAD; LCX Total replacement of hip (~2009) Family History Mother , AGE 85 Breast cancer Father , AGE 61 Stroke Brother , AGE 66 Essential hypertension Heart disease Hyperlipidemia Social History Smoking/Tobacco Use Status: Current every day Tobacco Type: cigars Per week: 25 Tobacco: How many years used: 50 Smoking risk assessment performed?: Yes Alcohol Intake: current Alcohol Intake frequency: 0-2 drinks per day Alcohol type: wine Drug use: Never Substance use type: does not use Caregiver/Support person: No Household members: spouse Communication Needs: None Pets and animals: No Current gender identity: male What is your relationship status?: How often do you talk on the phone with friends or family?: decline to answer How often do you get together with friends or relatives?: decline to answer How often do you attend mormon or spiritism services?: decline to answer Do you belong to any clubs or organized social groups?: decline to answer Panel score (0-1 are the most socially isolated patients): 1 What type of physical activity do you participate in: none Duration: 15-30 minutes/day Frequency: 5-6 times per week Debra/Spiritism: Worship Special debra needs: No Do you feel safe at home: Yes Do you feel safe in your relationship?: Yes Exam Narrative Exam Narrative: Constitutional: Alert and oriented x3. Appears stated age. Normal body habitus. Head: Normocephalic, no trauma. Eyes: Pupils PERRL, Red reflex noted, EOM's intact. Eyelids symmetrical without lesions, discharge, or swelling. ENT: Bilateral TM's WNL, External ear normal to inspection, no mastoid TTP, swelling, or erythema, Nasal turbinates WNL, no nasal discharge. Normal dentition, Posterior pharynx WNL, no exudate. Chest: RRR, Normal S1, S2, distal pulses intact. Resp: Lungs clear to auscultation bilaterally, no wheezes, rales, or rhonchi. Abdomen: Generalized tenderness with palpation worse on the right upper quadrant. Soft, non-distended, Normoactive bowel sounds all 4 quads. Musculoskeletal: Normal gait, 5/5 strength to all four extremities. Skin: No suspicious rashes or lesions. Capillary refill less than 2 sec. Neurologic: Cranial nerves II-XII intact. Alert and oriented x 3. Motor: No deficits noted. Sensory: Intact bilaterally all 4 extremities. Reflexes: DTR's intact bilaterally.. Hematologic/Lymphatic: No ecchymosis, no lymphadenopathy. Course Vital Signs Vital signs: Vital Signs Pulse 65 06/11/21 16:58 Respiratory Rate 16 06/11/21 16:58 Temperature 35.9 C L 06/11/21 17:04 Temperature Source Temporal Artery Scan 06/11/21 17:04 Pulse 122 H 06/11/21 17:04 Respiratory Rate 16 06/11/21 16:58 Blood Pressure 138/83 06/11/21 17:04 Pulse Oximetry 99 06/11/21 17:04 Oxygen Delivery Method Room Air 06/11/21 17:04 Oxygen Flow Rate 0 06/11/21 17:04
[2021-06-11] MEDS: Normal Saline 500 ML IV (17:30)
[2021-06-11] MEDS: Ondansetron 4 MG/2 ML VIAL IVP (17:30)
[2021-06-11 17:35] LABS: Abs Immature Grans 0.06 10^3/uL (0.0-0.06); HCT 42.5 % (40.0-50.0); HGB 13.4 g/dL (13.5-17.5); MCH 27.5 pg (27.0-33.0); MCHC 31.5 % (32.0-36.0); MCV 87.1 fL (80-95); MPV 8.8 fL (8.0-11.0); Nucleated RBC 0 %; Platelet Count 219 10^3/uL (130-400); RBC 4.88 10^6/uL (4.36-5.78); RDW 16.6 % (11.8-14.1); RDW-SD 53.1 fL; WBC 13.82 10^3/uL (4.4-10.8)
[2021-06-11] MEDS: MORPHine 10 MG/ML VIAL 4 MG IVP (17:35)
[2021-06-11 17:49] LABS: ALT 39 U/L (16-63); AST 24 U/L (15-37); Albumin 3.2 g/dL (3.4-5.0); Alkaline Phosphatase 125 U/L (46-116); Anion Gap 7.1 mmol/L (3-11); BUN 28 mg/dL (7-18); Bilirubin, Total 0.5 mg/dL (0.2-1.0); CO2 27.9 mmol/L (21.0-32.0); Calcium 9.7 mg/dL (8.5-10.1); Chloride 96 mmol/L (98-107); Glucose 122 mg/dL (74-106); Lipase 40 U/L (73-393); Magnesium 1.9 mg/dL (1.8-2.4); Potassium 4.4 mmol/L (3.5-5.1); Sodium 131 mmol/L (136-145); Total Protein 7.3 g/dL (6.4-8.2)
[2021-06-11 17:55] LABS: Absolute Lymphocyte Count 2.21 10^3/uL (1.2-3.4); Absolute Monocyte Count 0.69 10^3/uL (0.1-0.8); Atypical Lymphocytes % 12
[2021-06-11 17:56] LABS: Absolute Eosinophil Count 0.41 10^3/uL (0.0-0.7)
[2021-06-11 18:09] LABS: Diff Comment Manual Differential
[2021-06-11 18:11] LABS: RBC Morphology Normal
[2021-06-11 18:38] LABS: Bilirubin Negative (Negative); Blood Negative (Negative); Clarity Clear (Clear); Glucose Negative (Negative); Ketones Trace mg/dL (Negative); Leukocyte Esterase Negative (Negative); Nitrite Negative (Negative); Specific Gravity >= 1.030 (1.005-1.025); Urobilinogen 0.2 EU/dL (Up TO 0.2)
[2021-06-11 18:58] LABS: Bacteria Negative HPF (Negative); Epithelial Cells Negative HPF (Negative); Other Cells Negative (Negative); RBC Negative HPF (0-2); WBC 0-2 HPF (0-5)
[2021-06-11 18:59] LABS: C & S Indicated? No; Casts 0-2 Fine Granular LPF (Negative); Crystals Mod Calcium Oxalate HPF (Negative); Mucus Negative (Negative)
--- NOTE | 2021-06-11 19:54 | DI.VRAD_ITS ---
PROCEDURE INFORMATION: Exam: CT Abdomen And Pelvis With Contrast Exam date and time: 06/11/2021 5:12 PM Age: 81 years old Clinical indication: Other: HX of abdominal mass, abd pain, constipation TECHNIQUE: Imaging protocol: Computed tomography of the abdomen and pelvis with contrast. Contrast material: OMNIPAQUE 350; Contrast volume: 100 ml; Contrast route: INTRAVENOUS (IV); COMPARISON: CT CHEST/ABD/PEL W 05/19/2021 12:22 PM FINDINGS: Lungs: Mild atelectasis of the posterior lung bases. Heart: [id number] cardiac enlargement. Coronary artery atherosclerotic calcium. Liver: Moderate fatty liver infiltration. No focal hepatic lesion. There is a soft tissue mass within the peritoneal cavity external to the liver along the inferior right hepatic lobe measuring 27 x 11 mm. This has enlarged since previous exam. Gallbladder and bile ducts: Patient has had a previous cholecystectomy. There is no biliary dilatation. There are no ductal stones visible. Pancreas: Pancreas is normal in contour and enhancement. Spleen: Spleen has a central low-attenuation focus measuring 3.5 x 3.5 cm. This appears to be enlarging since previous study 05/19/2021. At that time this measured approximately 2 x 2 cm. This appears to represent an enlarging splenic mass. Possibility of a splenic metastasis should be considered. Ultrasound of spleen is suggested for further evaluation. Adrenal glands: The right adrenal gland has a necrotic mass consistent with metastatic lesion currently measuring 3.9 x 3.4 cm. This has enlarged since previous exam. The left adrenal gland has masslike replacement with central necrosis measuring 3.7 x 2.4 cm. This has also enlarged since previous exam. Additional enlarging nodules in the right adrenal bed consistent with metastatic deposits which are progressing. Kidneys and ureters: Normal. No hydronephrosis. Stomach and bowel: Nonspecific diffuse gastric wall thickening period gastric wall measuring up to approximately 3.3 cm. This is also evident on previous study. Significance uncertain. Possibility of a gastric neoplasm cannot be excluded. This could represent a process such as line itis plastica. This could be a gastric lymphoma. There is an enlarging exophytic mass off the posterior aspect of the gastric fundus measuring 4.2 x 4 cm. See series 4, image 17. Recommend clinical correlation. Small bowel loops are unremarkable in course and caliber. Large bowel is unremarkable. Appendix: No evidence of appendicitis. Intraperitoneal space: Minor free fluid in the posterior pelvis. Scattered areas of mesenteric nodularity. Most prominent is an enlarging mesenteric nodule in the right upper abdomen measuring 3.6 x 2.9 cm. See series 4, image 41. Vasculature: Abdominal aortic atherosclerotic disease. Distal abdominal aorta mild aneurysmal change with transverse diameter of 2.6 cm and AP diameter 2.8 cm. Right-sided mural thrombus. No involvement of the iliac arteries. Lymph nodes: Extensive retroperitoneal adenopathy. There are bulky lymph node seen extending posterior to the pancreas and extending into the region of the splenic hilum. These show significant enlargement in comparison with previous study. There is a large mass posterior to the pancreatic head and to the right of the celiac artery consistent with a node measuring 5.5 x 4 cm. This has enlarged since previous examination. Multiple other bulky celiac and retroperitoneal nodes are noted. These are para-aortic and para caval in location. Urinary bladder: Urinary bladder is unremarkable in appearance. No wall thickening. No intravesicular calculi. No intravesicular gas. Reproductive: Unremarkable as visualized. Bones/joints: Bilateral hip prostheses. Degenerative lumbar spine disease. Severe spinal stenosis at L4-L5. Soft tissues: A small nodule is seen in the anterior epicardial fat measuring 17 x 14 mm. See series 4, image 9. This appears to have enlarged since the previous examination 05/19/2021. At that time, this measured 12 x 7 mm. This could be an enlarging lymph node. IMPRESSION: 1. Progressive intra-abdominal metastatic disease within the large bulky retroperitoneal lymph nodes. Scattered areas of enlarging mesenteric nodularity and metastatic implants are also noted. 2. Enlarging bilateral adrenal metastatic lesions. 3. Enlarging splenic lesion now measuring 3.5 x 3.5 cm. Recommend splenic ultrasound. 4. Diffuse gastric wall thickening. Possibility of a gastric malignancy such as linitis plastica or lymphoma should be considered. There is an exophytic mass enlarging off the posterior gastric fundus measuring 4.2 x 4 cm. See series 4, image 17. This may be an enlarging serosal implant versus a primary gastric lesion. 5. No bowel obstruction. 6. Previous cholecystectomy. 7. Cardiomegaly. 8. Lung base emphysematous disease. 9. Mild aneurysmal change of the distal abdominal aorta. 10. Minor free fluid in the pelvis. 11. Degenerative lumbar spine disease. Bilateral hip prostheses. 12. Enlarging nodule in the precordial fat likely representing a metastatic deposit. Series 4, image 9. Dictated and Authenticated by: Romaine Perez MD. Ordering:LACY Yeung MD
== END 2021-06-11 20:42 | disposition home or self-care (01) ==
PROVIDERS: Emergency Provider Registered Nurse Emergency; PCP Emergency Medicine
DX: R10.30 Lower abdominal pain, unspecified (principal); C79.89 Secondary malignant neoplasm of other specified sites; C44.329 Squamous cell carcinoma of skin of other parts of face; Z79.899 Other long term (current) drug therapy; K59.00 Constipation, unspecified
CPT/HCPCS: 36415; 80053; 83690; 96361; 96374; 96375; 99285; 74177; 81003; 81015; 83735; 85025; 99284; J2270; J2405